=== PATIENT | female | born 1950 | race African-American/Black ===

== ENCOUNTER 2017-02-09 22:24 | Inpatient (IN) | payer MEDICARE, MEDICAID ==
[2017-02-09] MEDS ORDERED: Succinylcholine Chloride 20 MG/ML 10 ml SYRINGE FS ONE (22:33)
[2017-02-09] MEDS ORDERED: Midazolam HCl 2 mg/2 ml Vial ONE ×3 (22:47→23:09)
[2017-02-09] MEDS ORDERED: Norepinephrine 8 MG/0.9% NS 0 ML ONE (22:52)
[2017-02-09] MEDS ORDERED: Vecuronium 10 MG VIAL ONE (23:15)
--- NOTE | 2017-02-09 23:26 | RAD ---
PORTABLE CHEST: 02/09/17 HISTORY: Cough. Intubation. COMPARISON: 05/25/16 study. The patient is rotated on this exam. Endotracheal tube is at approximately the level of the clavicles . An NG tube is below the hemidiaphragm. Heart size is enlarged. Pulmonary vessels and perihilar kar ings appear increased. IMPRESSION: 1. Cardiomegaly with suggestion of some pulmonary edema change. 2. Endotracheal tube with the tip of the tube at approximately the level of the clavicles. The N G tube is below the hemidiaphragm. POS: [facility]
[2017-02-09 23:32] LABS: #Basophils 0.1 thou/uL (0.0-0.2); #Lymphocytes 1.6 thou/uL (1.20-3.40); #Monocytes 0.6 thou/uL (0.11-0.59); #Neutrophils 7.6 thou/uL (1.40-6.50); %Basophils 0.7 % (0.0-1.0); %Eosinophils 0.3 % (0.0-10.0); Hemoglobin 12.1 g/dL (12.0-16.0); Mean Corpuscular HGB CONC 29.7 g/dL (32.0-36.0); Mean Corpuscular Hemoglobin 26.2 pg (27.0-31.0); Mean Corpuscular Volume 88.3 fl (81.0-99.0); Mean Platelet Volume 11.7 fL (7.4-10.4); Platelet Count 85 thou/uL (130-400); RBC Distribution Width 16.9 % (11.5-14.5); White Blood Cell (WBC) Count 9.8 thou/uL (4.8-10.8)
[2017-02-09] MEDS ORDERED: Acetaminophen 650 MG Suppository ONE (23:32)
[2017-02-09] MEDS ORDERED: Propofol 1,000 MG/100 ML VIAL IV ONE (23:33)
[2017-02-09 23:36] LABS: Actual Bicarbonate (HCO3a) 19.7 mEq/L (22-26); Base Excess (BEa) -7.5 mEq/L (0 (+/-) 2.5); CO2 Tension 46.9 mmHg (35.0-45.0); Calcium, Ionized 1.1 mmol/L (1.12-1.30); Hematocrit-ABG 37.9 % (36.0-47.0); Hemoglobin (Hb) 12.1 g/dL (12.0-16.0); O2 Tension (PaO2) 71.3 mmHg (80.0-100.0)
[2017-02-09 23:39] LABS: ALV-art Gradient 230.075 (0-20); Analyzer IN Cardio ER; Puncture Site R RADIAL; pH, Arterial 7.24 (7.35-7.45)
[2017-02-09 23:40] LABS: Bilirubin Small (Negative); Blood, Urine Negative (Negative); Clarity CLOUDY (Clear); Glucose, Urine (Dipstick) Negative (Negative); Leukocyte Negative (Negative); Nitrite Negative (Negative); Protein, Urine (Dipstick) 300 mg/dL (Neg-Trace); Specific Gravity, Urine 1.027 (1.002-1.036); pH, Urine 5.5 (5.0-9.0)
[2017-02-09 23:44] LABS: Bacteria/HPF None Seen HPF (None Seen)
[2017-02-09 23:52] LABS: ALT (SGPT) 360 U/L (8-55); AST (SGOT) 794 U/L (5-34); Alkaline Phosphatase 97 U/L (40-150); Anion Gap 19 mmol/L (10-20); BUN (Urea Nitrogen) 42 mg/dL (9.8-20.1); Bilirubin, Total 0.4 mg/dL (0.2-1.2); Calc. Creatinine Clearance 0 mL/min (70-130); Calcium 8.1 mg/dL (7.8-10.44); Carbon Dioxide 18 mmol/L (23-31); Chloride 114 mmol/L (98-107); Estimated GFR-MDRD 14; Globulin 3.6 g/dL (2.4-3.5); Glucose 154 mg/dL (80-115); Potassium 4.5 mmol/L (3.5-5.1); Protein, Total 6.6 g/dL (6.0-8.3); Sodium 146 mmol/L (136-145)
[2017-02-09 23:53] LABS: Pathc Cast-AUWi Flag 14.36 (0-2.49)
[2017-02-09] MEDS ORDERED: Cefepime 2 GM/10 ML SYR ONE (23:58)
[2017-02-10] MEDS ORDERED: Cefepime 2 GM/10 ML SYR ONE
[2017-02-10 00:02] LABS: Hyaline Casts/LPF NONE SEEN LPF (0-3 Hyaline); Other Casts/LPF None Seen LPF (0-3 Hyaline); Oval Fat Bodies/HPF None Seen HPF (None Seen); Renal Epithelial 0-3 HPF (0-3); Sperm/HPF None Seen HPF (None Seen); Transitional Epithelial NONE SEEN HPF (0-3); Trichomonas/HPF None Seen HPF (None Seen); Yeast-All Forms None Seen HPF (None Seen)
[2017-02-10] MEDS ORDERED: Norepinephrine 8 MG/0.9% NS 250 ML ONE (01:11)
[2017-02-10] MEDS ORDERED: Propofol 1,000 MG/100 ML VIAL IV PRN (02:07)
[2017-02-10 02:12] LABS: Amphetamine Not Detected (NotDetected); Barbiturates Screen Not Detected (NotDetected); Benzodiazepine Screen Not Detected (NotDetected); Cocaine Metabolite Screen Not Detected (NotDetected); Medtox Control Line Valid? VALID (VALID); Medtox Reader # READER 1; Methadone Not Detected (NotDetected); Methamphetamine Not Detected (NotDetected); Opiate Screen Detected (NotDetected); Oxycodone Screen Not Detected (NotDetected); Phencyclidine (PCP) Not Detected (NotDetected); THC/Cannabinoid Screen Detected (NotDetected); Tricyclic Screen Not Detected (NotDetected)
[2017-02-10] MEDS ORDERED: Lactated Ringer's 1,000 ML IV SCH (02:15)
[2017-02-10] MEDS ORDERED: Ondansetron ODT 4 MG TAB PO PRN (03:11)
[2017-02-10] MEDS ORDERED: CCU Electrolyte Replacement 1 EACH FS SCH (03:11)
[2017-02-10] MEDS ORDERED: Sodium Chloride 0.9% 1,000 ML IV SCH ×3 (03:11→05:30)
[2017-02-10] MEDS ORDERED: Acetaminophen 650 MG Suppository PR PRN (03:11)
[2017-02-10] MEDS ORDERED: Ventilator Sedation Protocol 1 EACH FS SCH (03:11)
[2017-02-10] MEDS ORDERED: Ondansetron HCl/PF 4 MG/2 ML Vial IVP PRN (03:11)
[2017-02-10 03:25] LABS: Lactic Acid 1.8 mmol/L (0.5-2.2)
[2017-02-10] MEDS ORDERED: DISCONTINUE PREVIOUS NARCOTIC PAIN MEDICATIONS AND BENZODIAZEPINES FS SCH (03:26)
[2017-02-10] MEDS ORDERED: fentaNYL Citrate/PF 2,000 MCG in Sodium Chloride 0.9% 60 ML IV SCH (03:26)
[2017-02-10] MEDS ORDERED: Lorazepam 2 MG/ML VIAL SLOW IVP PRN (03:26)
[2017-02-10] MEDS ORDERED: CCU ELECTROLYTE REPLACEMENT PROTOCOL FS PRN (03:27)
[2017-02-10] MEDS ORDERED: Potassium Phosphate 9 MMOL in Sodium Chloride 0.9% 100 ML IVPB PRN (03:27)
[2017-02-10] MEDS ORDERED: Potassium Chloride 20 MEQ TAB PO PRN (03:27)
[2017-02-10] MEDS ORDERED: Potassium Chloride 40 MEQ in Sodium Chloride 0.9% 250 ML 250 ML IVPB PRN (03:27)
[2017-02-10] MEDS ORDERED: Potassium Chloride 40 MEQ in Premix Bag 1 BAG IVPB PRN (03:27)
[2017-02-10] MEDS ORDERED: Potassium Phosphate 15 MMOL in Sodium Chloride 0.9% 250 ML 250 ML IV PRN (03:27)
[2017-02-10] MEDS ORDERED: Magnesium Oxide 400 MG TAB PO PRN ×2 (03:27)
[2017-02-10] MEDS ORDERED: Potassium Phosphate 12 MMOL in Sodium Chloride 0.9% 250 ML 250 ML IV PRN (03:27)
[2017-02-10] MEDS ORDERED: Magnesium 2 GM/NS 0.9% 100 ML 2 GM in Premix Bag 1 BAG IVPB PRN (03:27)
[2017-02-10] MEDS ORDERED: RENALLY ADJUST ANTIBIOTICS IVPB PRN (03:30)
[2017-02-10] MEDS: Sodium Chloride 0.9% 1,000 ML IV SCH ×2 (03:30→09:20)
[2017-02-10] MEDS ORDERED: Morphine 2 MG/ML SYRINGE IVP PRN (04:45)
--- NOTE | 2017-02-10 05:32 | HP ---
DATE OF ADMISSION: 02/10/2017 PRIMARY CARE PROVIDER: Margo Coates MD CHIEF COMPLAINT: Unresponsive and found down. HISTORY OF PRESENT ILLNESS: This is a 66-year-old -[place] female who presented by EMS trans port after apparently being discovered found down in her home in [place], [place]. The history was obtai arcelia after discussions with the ER attending as well as review of electronic medical record from the e mergency room. Family members last had seen the patient well on 02/07/2017, but we were unable to co mmunicate with her over the next 24-48 hours by phone. The family members became concerned and had a ttempted to have a neighbor check on her at her house. The patient was unresponsive, at which point, EMS and police personnel arrived, breaking into the home, and finding the patient obtunded. The pat ient's initial temperature was documented 100.9 degrees Fahrenheit with glucose of 179. The patient was minimally responsive and slurring of speech. The patient was transferred to the emergency room f or further evaluation. Upon arrival in the emergency room, due to patient's severe altered state and unknown time course of being down, the patient underwent intubation with airway protection and place d on mechanical ventilation. The patient was also noted with severe hypotension and concern for seps is, it was entertained. The patient received aggressive IV fluid hydration in addition received IV n orepinephrine for stabilization. Patient also received intravenous fluids as well as IV antibiotic t herapy with cefepime and vancomycin. The patient was placed on propofol infusion after receiving vec uronium and 8 mg of Versed. PAST MEDICAL HISTORY: 1. Diabetes mellitus type 2. 2. Morbid obesity. 3. Gastroesophageal reflux disease. 4. Hypertension. 5. Question of congestive heart failure. 6. Anxiety disorder. 7. Bipolar disorder. 8. Depression. 9. Remote tobacco use. PAST SURGICAL HISTORY: Status post section. CURRENT MEDICATIONS: 1. Lyrica 75 mg p.o. b.i.d. 2. Amlodipine 5 mg one tab p.o. daily. 3. Lasix 40 mg 1 tab p.o. daily. 4. Trazodone 50 mg p.o. at bedtime. 5. Pravachol 40 mg p.o. daily. 6. Tradjenta 5 mg p.o. daily. 7. Cyclobenzaprine 5 mg p.o. q.8 hours p.r.n. 8. Carvedilol 6.25 mg p.o. daily. 9. Losartan 25 mg 1 tab p.o. daily. 10. Nexium 20 mg p.o. daily. ALLERGIES: PENICILLIN. FAMILY HISTORY: Positive for diabetes and hypertension. SOCIAL HISTORY: Patient resides in [facility]. Currently disabled and retired. Remote histo ry of tobacco use, none currently. No alcohol or illicit drug use. REVIEW OF SYSTEMS: Unobtainable as patient on current mechanical ventilation and obtunded. PHYSICAL EXAMINATION: VITAL SIGNS: Currently, blood pressure 91/42, pulse 80, respiratory rate 22, temperature 98 degrees Fahrenheit, O2 saturation 100% on mechanical ventilation. GENERAL APPEARANCE: This is a 66-year-old -[place]ian female, sedated on current mechanical don tilation. HEENT: Pupils are minimally reactive to light and accommodation. Extraocular muscles are intact. N o scleral icterus. No conjunctival injection. Nares patent. OP is clear with ET tube in place. NECK: Supple. No cervical adenopathy, no thyromegaly, no carotid bruits, no JVD appreciated. Cervi qian spine with full active and passive range of motion. CHEST: Diminished breath sounds in the bases bilaterally. CARDIOVASCULAR: S1, S2 with distant heart sounds. ABDOMEN: Obese, soft. Landmarks are difficult to palpate due to patient's body habitus. No rebound or guarding noted. EXTREMITIES: Warm and dry with fair turgor. Pitting edema to bilateral lower extremities. Pulses a re palpable distally at the dorsalis pedis, posterior tibial, and popliteal arteries bilaterally. Ca pillary refill less than 2 seconds. NEUROLOGIC: Lethargic, on current mechanical ventilation. PERTINENT LABORATORY AND X-RAY FINDINGS: Sodium 146, potassium 4.5, chloride 114, CO2 of 18, BUN 42, creatinine 3.93 with estimated GFR 14. Lactic acid level 2.5, calcium 8.0, AST 794, ALT 360, alkali ne phosphatase 97, albumin 3.0. CBC showed a white blood cell count 9.8, hemoglobin 12, hematocrit 4 1, platelet count 85,000 with 77% neutrophils. Urine drug screen dated 02/09/2017, positive for shoaib abinoids and opiates. Influenza A and B antigen dated 02/10/2017. Positive for influenza A antigen. Portable chest x-ray dated 02/09/2017, showed cardiomegaly with questionable pulmonary edema. Endo tracheal tube with tip of the tube approximately at the level of the clavicles noted. CT of the [place] dated 02/09/2017, showed no acute intracranial process. EKG dated 02/09/2017 by my interpretation shows sinus mechanism with heart rates in the 90s. Right bundle branch block pattern noted. Attenua cuong R waves noted in the precordial leads. Left axis deviation. Question of bifascicular block. ASSESSMENT AND PLAN: 1. Septic shock. Exact source is unclear. We will continue CCU admission. Continue aggressive IV fluid hydration, continue Levophed, titrating to maintain blood pressure with systolic greater than 9 0. Continue general sepsis protocol with serial lactate assessment. 2. Acute hypoxemic respiratory failure. We will continue mechanical ventilation with synchronized i ntermittent mechanical ventilation. Titrate to clinical response and wean off sedation as clinically tolerated. Continue general pulmonary supportive measures. 3. Febrile syndrome. Continue empiric broad-spectrum IV antibiotic therapy with cefepime and vancom ycin. Blood and urine cultures pending at time of this dictation. 4. Toxic/metabolic encephalopathy. Continue intravenous normal saline at 100 mL per hour. Continue general supportive measurements. 5. Acute kidney injury on chronic kidney disease, stage 3. We will continue intravenous fluids as o utlined previously. Avoid nephrotoxic agents and contrast media. Consider nephrology consultation i f creatinine trend does not improve in the next 24 hours. 6. Transaminitis. Suspect secondarily to sepsis. Repeat LFTs in the a.m. and monitor overall trend . 7. Hypernatremia. We will continue intravenous fluids and monitor with serial sodium evaluations. 8. Cannabis use. We will offer cessation resources prior to discharge. 9. Prophylaxis. Sequential compression devices while in bed. Pepcid 20 mg IV q.12 hours. 10. Code status is FULL. Surrogate medical decision maker is patient's son. TOTAL CRITICAL CARE TIME: Forty-two minutes.
[2017-02-10 05:48] LABS: ALT (SGPT) 414 U/L (8-55); AST (SGOT) 960 U/L (5-34); Albumin 2.8 g/dL (3.4-4.8); Alkaline Phosphatase 96 U/L (40-150); Anion Gap 15 mmol/L (10-20); BUN (Urea Nitrogen) 48 mg/dL (9.8-20.1); Bilirubin, Total 0.5 mg/dL (0.2-1.2); Calc. Creatinine Clearance 26 mL/min (70-130); Calcium 7.8 mg/dL (7.8-10.44); Carbon Dioxide 19 mmol/L (23-31); Chloride 114 mmol/L (98-107); Estimated GFR-MDRD 11; Globulin 3.2 g/dL (2.4-3.5); Glucose 287 mg/dL (80-115); Potassium 3.9 mmol/L (3.5-5.1); Sodium 144 mmol/L (136-145)
[2017-02-10 05:52] LABS: Band 7 % (5-11); Hemoglobin 11.6 g/dL (12.0-16.0); Lymphocytes 15 % (21-51); MDiff Complete? YES; Mean Corpuscular HGB CONC 29.8 g/dL (32.0-36.0); Mean Corpuscular Hemoglobin 26.2 pg (27.0-31.0); Mean Corpuscular Volume 87.9 fl (81.0-99.0); Mean Platelet Volume 12.2 fL (7.4-10.4); Metamyelocyte 2 % (0-0); Monocytes 1 % (0-10); Neutrophil 75 % (42-75); PLT Morphology Comment Appears Decreased; Platelet Count 78 thou/uL (130-400); RBC Distribution Width 16.8 % (11.5-14.5); Red Blood Cell (RBC) Count 4.45 mill/uL (4.20-5.40); White Blood Cell (WBC) Count 6.8 thou/uL (4.8-10.8)
--- NOTE | 2017-02-10 07:48 | CT ---
PRELIMINARY REPORT/[facility]/EMERGENCY AFTER HOURS PROCEDURE: EXAM: CT Head Without Intravenous Contrast EXAM DATE/TIME: Exam ordered 02/10/2017 12:14 AM CLINICAL HISTORY: 66 years old, female; Signs and symptoms; Other: Unresponsive; Patient HX: F66 found unresponsive in her home; Pt had urinated on herself. Ems was called by neighbors who had tried to check in on pt but couldn't get in touch with her. Unknown when last contact was made or when pt was last responsive. E ms reports pt was only responsive when they moved her into ambulance. Reports d-stick was 179 and tem p was 100.9. Pt has medical HX of HTN. Dm, and chf. TECHNIQUE: Axial computed tomography images of the head/brain without intravenous contrast. COMPARISON: No relevant prior studies available. FINDINGS: Brain: Mild generalized volume loss of the brain. No hemorrhage. No significant white matter disease. Ventricles: Unremarkable. No ventriculomegaly. Bones/joints: Unremarkable. No acute fracture. Soft tissues: Unremarkable. Sinuses: Fluid levels in the sphenoid sinus may signify sinusitis. Mastoid air cells: Unremarkable as visualized. No mastoid effusion. Orbits: Bilateral globe proptosis. No extraocular muscle thickening. IMPRESSION: 1. Fluid levels in the sphenoid sinus may signify sinusitis. 2. No acute brain findings. 3. Bilateral globe proptosis. No extraocular muscle thickening. Thank you for allowing us to participate in the care of your patient. Dictated and Authenticated by: Juan Terrazas MD 02/10/2017 12:35 AM Central Time ([place] & [place]) FINAL REPORT BRAIN CT WITHOUT IV CONTRAST: HISTORY: A 66-year-old female with altered mental status found unresponsive at home. COMPARISON: 05/25/2016 Emergency after-hours exam at 12:15 a.m. on 02/10/2017. No significant acute intracranial process. Oral tube is in place. Fluid within the ethmoid and sphe noid sinuses. Code QA/Agree with [facility]. POS: [facility]
[2017-02-10 08:03] LABS: Actual Bicarbonate (HCO3a) 17.1 mEq/L (22-26); CO2 Tension 37.4 mmHg (35.0-45.0); Calcium, Ionized 1.1 mmol/L (1.12-1.30); Hematocrit-ABG 34.2 % (36.0-47.0); Hemoglobin (Hb) 11.1 g/dL (12.0-16.0); O2 Tension (PaO2) 71.5 mmHg (80.0-100.0); pH, Arterial 7.28 (7.35-7.45)
[2017-02-10 08:04] LABS: Puncture Site LRA
[2017-02-10] MEDS ORDERED: FLU VACC TS2017-18 (>65YR) 0.5 ML SYRINGE IM ONE (09:00)
[2017-02-10] MEDS ORDERED: Prevnar 13-Val Conj/PF 0.5 ML SYRINGE IM ONE (09:00)
[2017-02-10] MEDS ORDERED: Famotidine/PF 20 mg/2ml Vial SLOW IVP SCH (09:00)
[2017-02-10] MEDS ORDERED: Cefepime 2 GM in Sodium Chloride 0.9% 100 ML IVPB SCH (09:00)
[2017-02-10] MEDS: Famotidine/PF 20 mg/2ml Vial SLOW IVP SCH (09:21)
[2017-02-10] MEDS: Propofol 1,000 MG/100 ML VIAL IV PRN (09:39)
[2017-02-10] MEDS: Norepinephrine 8 MG/0.9% NS 250 ML IVPB SCH ×2 (09:40→14:48)
[2017-02-10] MEDS ORDERED: Acetaminophen 650 MG in Premix Bag 1 BAG IVPB PRN (10:27)
[2017-02-10] MEDS ORDERED: Dextrose 50% Abboject 50 ML SYRINGE IVP PRN (10:37)
[2017-02-10] MEDS ORDERED: Dextrose 5% in Water 1,000 ML IV PRN (10:37)
--- NOTE | 2017-02-10 10:41 | RAD ---
PORTABLE CHEST ONE VIEW: 02/10/2017 5:07 a.m. HISTORY: Respiratory failure. FINDINGS: The patient is rotated. Line and tube placements are unchanged in position. The heart is enlarged. There is suggestion of a patchy opacity in the right mid lung. No definite pneumothoraces are seen. Small effusions maybe present. POS: [facility]
[2017-02-10] MEDS: Hydrocortisone Sod Succ/PF 100 mg/2 ml Vial IVP SCH ×3 (11:04→23:25)
[2017-02-10] MEDS: Insulin Regular 300 UNITS/3 ML VIAL SC PRN ×3 (11:35→21:02)
--- NOTE | 2017-02-10 13:03 | PDOC.EVN ---
Event Note - Event Note Event Note: Chart reviewed. Pt currently intubated, on sedation. Will follow.
--- NOTE | 2017-02-10 13:36 | OP ---
DATE OF PROCEDURE: 02/10/2017 PROCEDURE: Bronchoscopy. PREOPERATIVE DIAGNOSIS: Left lung atelectasis. POSTOPERATIVE DIAGNOSIS: Left lung atelectasis. ANESTHESIA: None - the patient was currently on propofol drip to mechanical ventilation. DESCRIPTION OF PROCEDURE: Informed consent was obtained from the family at bedside. An Olympus bronc hoscope was placed in the patient's endotracheal tube. She was on 100% oxygen during the procedure. She had tenacious secretions present in the left main stem bronchus extending beyond the left lower and left upper lobe. These were lavaged with normal saline and removed. She also had secretions pre sent in the right lower lobe which were removed. She tolerated the procedure well. There were no ot her endobronchial lesions identified.
[2017-02-10 13:42] LABS: Bilirubin Small (Negative); Blood, Urine Small (Negative); Glucose, Urine (Dipstick) Negative (Negative); Leukocyte Negative (Negative); Nitrite Negative (Negative); Protein, Urine (Dipstick) 100 mg/dL (Neg-Trace); Urobilinogen 0.2 mg/dL (0.2-1.0); pH, Urine 5.5 (5.0-9.0)
--- NOTE | 2017-02-10 13:43 | CON ---
DATE OF CONSULTATION: 02/10/2017 This is 45 minutes critical care time. CONSULTING PHYSICIAN: Dr. Sin from the Hospitalist Service. REASON FOR CONSULTATION: Acute respiratory failure. HISTORY OF PRESENT ILLNESS: Information was obtained from the family and from reading documentation in the chart. This is a 66-year-old -[place]onegas[place] female who was found down at home. She was las t heard from about 48 hours ago when she was complaining of feeling cold. She was found to be febril e and severe respiratory distress. She was intubated for airway protection. PAST MEDICAL HISTORY: 1. Diabetes mellitus type 2. 2. Morbid obesity. 3. Gastroesophageal reflux disease. 4. Hypertension. 5. Diastolic cardiac dysfunction. 6. Anxiety. 7. Bipolar disorder. 8. Depression. PAST SURGICAL HISTORY: . MEDICATIONS: Prior to admission, Lyrica 75 mg b.i.d., amlodipine 5 mg daily, Lasix 40 mg daily, traz odone 50 mg nightly, Pravachol 40 mg daily, Tradjenta 5 mg daily, cyclobenzaprine 5 mg every 8 hours as needed, carvedilol 6.25 mg daily, losartan 25 mg daily, Nexium 20 mg daily. ALLERGIES: PENICILLIN. FAMILY MEDICAL HISTORY: Remarkable for diabetes and hypertension. SOCIAL HISTORY: Disabled and retired. Does not smoke. Does not use illicit drugs. REVIEW OF SYSTEMS: Completely unobtainable because the patient is intubated and cannot give a histor y. PHYSICAL EXAMINATION: VITAL SIGNS: Temperature 101.3, pulse 77, blood pressure 92/55, O2 sat 100%. GENERAL: She is currently on Levophed drip at 15 mcg per minute. NEUROLOGIC: She coughs. She moves all 4 extremities. Cannot cooperative with commands. HEENT: Pupils react. Sclerae are anicteric. Oropharynx, endotracheal tube in place size 7. NECK: No JVD, or bruits. LUNGS: Coarse breath sounds bilaterally with harsh expiratory wheezing. CARDIOVASCULAR: S1, S2, slightly tachycardic. ABDOMEN: Soft, obese, nontender, nondistended. EXTREMITIES: Edematous. LABORATORY AND X-RAY FINDINGS: A pH 7.28, pCO2 of 37, pO2 of 71 on SIMV rate 20, tidal volume 500, P EEP 5, pressure support 10, FiO2 100%, this is consistent with a metabolic acidosis. White blood katerine l count 6.8, hematocrit 39.1, platelet count 78. Sodium 144, potassium 3.9, chloride 114, CO2 of 19, BUN 48, creatinine 4.6, glucose 287, AST 960, ALT 414. Cortisol 7.2. Chest x-ray was reviewed and shows atelectasis in the left lung, bilateral infiltrates. ASSESSMENT: 1. Septic shock. 2. Bilateral pneumonia. 3. Influenza type A. 4. Acute respiratory failure requiring mechanical ventilation secondary to pneumonia. 5. Acute renal failure with oliguric state. PLAN: 1. The patient underwent bronchoscopy for removal of mucus plugging in the left lung. 2. Broad spectrum IV antibiotics. 3. Continue mechanical ventilation - we will switch to bilevel mode. 4. Vasopressor support. 5. Bronchoscopy. 6. Nephrology consultation. The above encompassed 45 minutes critical care time.
[2017-02-10 13:47] LABS: Clarity Hazy (Clear)
[2017-02-10 13:58] LABS: Specific Gravity, Urine 1.025 (1.002-1.036)
[2017-02-10 13:59] LABS: RBC/HPF 0-3 HPF (0-3); Transitional Epithelial 0-3 HPF (0-3)
[2017-02-10 14:01] LABS: Bacteria/HPF 1+ HPF (None Seen)
[2017-02-10 14:02] LABS: Hyaline Casts/LPF 0-3 HYALINE CAST LPF (0-3 Hyaline)
[2017-02-10] MEDS: Cefepime 2 GM, Syringe 2.5 ML in Sterile Water 10 ML SLOW IVP SCH (20:58)
[2017-02-10] MEDS: Thiamine HCl 200 MG/2 ML VIAL SLOW IVP SCH (20:59)
--- NOTE | 2017-02-10 21:56 | CON ---
DATE OF CONSULTATION: 02/10/2017 CONSULTING PHYSICIAN: Dr. Pulliam. REASON FOR CONSULTATION: Acute kidney injury and oliguria. REASON FOR ADMISSION: Found down, unresponsive. HISTORY OF PRESENT ILLNESS: A 66-year-old -[place] female with history of type 2 diabetes, h ypertension, anxiety, bipolar disorder, depression, and substance abuse, was taken to the hospital af ter being found down. The patient was having no contact with her family and family were concerned an d on checking at her house, she was found down. She last talked to somebody 24-48 hours before that. The patient is currently intubated and seen in ICU. Niece and sister at the bedside. The patient is responding to verbal stimuli and with opening her eyes. She was not making any urine this morning . Nephrology is consulted. The patient had a creatinine of 4.6 this morning. She also had a mild fever and currently intubated and hypotensive, on pressors. PAST MEDICAL HISTORY: Positive for type 2 diabetes, morbid obesity, gastroesophageal reflux disease, hypertension, congestive heart failure, anxiety disorder, bipolar disorder, depression, substance ab use. PAST SURGICAL HISTORY: . HOME MEDICATIONS: Lyrica, amlodipine, Lasix, trazodone, Pravachol, Tradjenta, cyclobenzaprine, carve dilol, and losartan. ALLERGIES: PENICILLIN. SOCIAL HISTORY: History of positive for marijuana. No alcohol or tobacco use reported. Remote hist ory of tobacco use. FAMILY HISTORY: Positive for diabetes and hypertension. REVIEW OF SYSTEMS: Could not be obtained as she is intubated. PHYSICAL EXAMINATION: GENERAL: Morbidly obese female, seen in ICU and intubated. VITAL SIGNS: Temperature 101, pulse 83, respiratory rate 20, blood pressure 114/59. HEENT: Intubated. CARDIOVASCULAR: S1 and S2 heard. RESPIRATORY: Clear. GI: Abdomen is soft. MUSCULOSKELETAL: 1+ edema. DERMATOLOGIC: No skin rash. NEUROLOGIC: Alert, awake, and intubated. LABORATORY DATA: Hemoglobin is 11.6, platelets 78, potassium 3.9, BUN 48, creatinine is 4.6, GFR is 11, albumin is 2.8. ASSESSMENT AND PLAN: 1. Acute kidney injury, on chronic kidney disease secondary to sepsis, most likely acute tubular nec rosis. The patient is currently oliguric and anuric. No acute indication for dialysis, but if urine output does not improve in the next 24-48 hours, might need renal replacement. Continue supportive care, avoid nephrotoxins. Attempt to keep systolic more than 90 as possible. 2. Hypernatremia, better. 3. Hyperchloremia. 4. Metabolic acidosis. 5. Currently on the vent. 6. Acute hypoxic respiratory failure and septic shock. 7. Pneumonia. 8. Anxiety. 9. Elevated liver enzymes. 10. Hypoalbuminemia with moderate protein energy malnutrition. 11. Anemia, mild. 12. Edema. 13. History of hypertension. Currently, blood pressure control. 14. Continue close monitoring in the Critical Care monitoring and avoid nephrotoxins. MEDICATION LIST: Reviewed. Would continue antibiotics and supportive care. Will follow. No urgent indication for dialysis currently. Thank you for the consultation.
[2017-02-11] MEDS: Vancomycin HCl 750 MG in Sodium Chloride 0.9% 250 ML 250 ML IVPB SCH (00:42)
[2017-02-11] MEDS: Sodium Chloride 0.9% 1,000 ML IV SCH (01:23)
[2017-02-11] MEDS: Insulin Regular 300 UNITS/3 ML VIAL SC PRN ×5 (01:23→22:02)
[2017-02-11 04:35] LABS: Anion Gap 22 mmol/L (10-20); BUN (Urea Nitrogen) 57 mg/dL (9.8-20.1); Calc. Creatinine Clearance 22 mL/min (70-130); Calcium 7.2 mg/dL (7.8-10.44); Carbon Dioxide 11 mmol/L (23-31); Chloride 121 mmol/L (98-107); Estimated GFR-MDRD 9; Glucose 207 mg/dL (80-115); Potassium 4.1 mmol/L (3.5-5.1); Sodium 150 mmol/L (136-145)
[2017-02-11 04:46] LABS: Band 24 % (5-11); Burr Cells SLIGHT = 2-5 cells (100X) (0-1/hpf); Hemoglobin 10.5 g/dL (12.0-16.0); Lymphocytes 9 % (21-51); MDiff Complete? YES; Mean Corpuscular HGB CONC 30.2 g/dL (32.0-36.0); Mean Corpuscular Hemoglobin 26.2 pg (27.0-31.0); Mean Corpuscular Volume 86.5 fl (81.0-99.0); Mean Platelet Volume 8.7 fL (7.4-10.4); Metamyelocyte 5 % (0-0); Monocytes 2 % (0-10); Neutrophil 60 % (42-75); PLT Morphology Comment Appears Decreased; Platelet Count 54 thou/uL (130-400); RBC Distribution Width 16.7 % (11.5-14.5); Red Blood Cell (RBC) Count 4.01 mill/uL (4.20-5.40); White Blood Cell (WBC) Count 5.8 thou/uL (4.8-10.8)
[2017-02-11] MEDS: Hydrocortisone Sod Succ/PF 100 mg/2 ml Vial IVP SCH ×3 (05:28→18:16)
[2017-02-11 07:46] LABS: Actual Bicarbonate (HCO3a) 11.4 mEq/L (22-26); Base Excess (BEa) -11.5 mEq/L (0 (+/-) 2.5); Calcium, Ionized 1.1 mmol/L (1.12-1.30); Hematocrit-ABG 31.4 % (36.0-47.0); Hemoglobin (Hb) 11.1 g/dL (12.0-16.0); O2 Tension (PaO2) 164.4 mmHg (80.0-100.0); pH, Arterial 7.39 (7.35-7.45)
[2017-02-11 07:50] LABS: ALV-art Gradient 239.275 (0-20); CO2 Tension 19.3 mmHg (35.0-45.0); Puncture Site RR
--- NOTE | 2017-02-11 07:51 | PDOC.PULCC ---
CCU Progress Note: Subj/Obj - Subjective Date: 02/11/17 Time: 07:50 Subjective: She will awaken and follow commands. Appears very scared - Objective Allergies/Adverse Reactions: Allergies Allergy/AdvReac Type Severity Reaction Status Date / Time Penicillins Allergy Mild Verified 09/13/12 23:25 Medications: Current Medications Acetaminophen (Tylenol) 650 mg GA Q4H PRN PRN Reason: Headache/Fever or Mild Pain Dextrose/Water (Dextrose 50%) 25 gm IVP PRN PRN PRN Reason: HYPOGLYCEMIA PROTOCOL Famotidine (Pepcid) 20 mg SLOW IVP DAILY [facility] Last Admin: 02/10/17 09:21 Dose: 20 mg Glucagon (Glucagon) 1 mg IM PRN PRN PRN Reason: HYPOGLYCEMIA PROTOCOL Hydrocortisone Sodium Succinate (Solu-Cortef) 100 mg IVP Q6HR [facility]IEL Last Admin: 02/11/17 05:28 Dose: 100 mg Norepinephrine Bitartrate (Levophed) 250 mls @ 0 mls/hr IVPB INF MARIEL; Titrate PRN Reason: Protocol Last Admin: 02/10/17 14:48 Dose: 250 mls Vancomycin HCl 750 mg/ Sodium (Chloride) 250 mls @ 250 mls/hr IVPB 0100 [facility] Last Admin: 02/11/17 00:42 Dose: 250 mls Cefepime HCl 2 gm/ Syringe 2.5 (ml/ Sterile Water) 12.5 mls @ 150 mls/hr SLOW IVP 2100 [facility] Last Admin: 02/10/17 20:58 Dose: 12.5 mls Fentanyl Citrate 2,000 mcg/ (Sodium Chloride) 100 mls @ 0 mls/hr IV INF MARIEL; Per Protocol PRN Reason: Protocol Stop: 03/12/17 03:26 Fentanyl Citrate (Fentanyl Bolus) 250 mls @ 0 mls/hr IVPB PRN PRN; As Directed PRN Reason: Breakthrough pain Stop: 03/12/17 03:26 Ascorbic Acid 1,500 mg/ Sodium (Chloride) 53 mls @ 100 mls/hr IVPB Q6HR MARIEL Stop: 02/14/17 12:01 Last Admin: 02/11/17 05:28 Dose: 53 mls Acetaminophen 650 mg/ Device 65 mls @ 400 mls/hr IVPB Q6H PRN PRN Reason: Fever > 101 Stop: 02/11/17 10:28 Last Admin: 12/29/17 11:03 Dose: 65 mls Dextrose/Water (D5w) 1,000 mls @ 0 mls/hr IV INF PRN; As Directed PRN Reason: HYPOGLYCEMIA PROTOCOL Sodium Bicarbonate 150 meq/ (Dextrose/Water) 1,150 mls @ 100 mls/hr IV 0800 [facility] Stop: 02/11/17 19:29 Insulin Human Regular (Humulin R) 0 units SC .MODERATE SLIDING SC PRN; Protocol PRN Reason: MODERATE SLIDING SCALE Last Admin: 02/11/17 05:35 Dose: 2 unit Lorazepam (Ativan) 2 mg SLOW IVP Q2H PRN PRN Reason: Anxiety to achieve Gaines 2-3 Stop: 03/12/17 03:26 Miscellaneous Medication (Ventilator Sedation Protocol) 1 each FS ONE [facility] Stop: 03/12/17 03:12 Miscellaneous Medication (Pharmacy To Dose) 1 each IVPB PRN PRN PRN Reason: Pharmacy to dose Morphine Sulfate (Morphine) 2 mg IVP Q2H PRN PRN Reason: Breakthrough pain Stop: 03/12/17 03:26 Ondansetron HCl (Zofran Odt) 4 mg PO Q6H PRN PRN Reason: Nausea/Vomiting Ondansetron HCl (Zofran) 4 mg IVP Q6H PRN PRN Reason: Nausea/Vomiting Propofol (Diprivan) 1,000 mg IV INF PRN; Protocol PRN Reason: TO ACHIEVE GAINES SCORE 2-3 Stop: 03/12/17 03:26 Last Admin: 02/10/17 09:39 Dose: 1,000 mg Sodium Chloride (Flush - Normal Saline) 10 ml IVF Q12HR [facility] Last Admin: 02/10/17 21:03 Dose: 10 ml Sodium Chloride (Flush - Normal Saline) 10 ml IVF PRN PRN PRN Reason: Saline Flush Thiamine HCl (Thiamine Hcl) 200 mg SLOW IVP Q12HR [facility] Stop: 02/14/17 09:01 Last Admin: 02/10/17 20:59 Dose: 200 mg MAR Reviewed: Yes Vital Signs and I&O: Vital Signs Temp 100.4 F H 02/11/17 05:00 Pulse 67 02/11/17 03:17 Resp 23 H 02/11/17 05:49 BP 170/94 H 02/10/17 15:23 Pulse Ox 100 02/10/17 20:00 Intake & Output 02/10/17 02/11/17 02/11/17 18:59 06:59 18:59 Intake Total 1622 1556 Output Total 220 375 Balance 1402 1181 Weight 306 lb 7.08 oz Intake: Intake, IV Amount 1622 1556 Acetaminophen 650 mg In 100 Premix Bag 1 bag @ 400 mls/hr IVPB Q6H PRN Rx#: [id number] Norepinephrine 8 MG/0.9% 379 106 NS 250 ml @ Titrate IVPB INF MARIEL Rx#:[id number] Sodium Chloride 0.9% 1, 1143 1200 000 ml @ 100 mls/hr IV . Q10H MARIEL Rx#:[id number] Vancomycin HCl 750 mg In 250 Sodium Chloride 0.9% 250 ML 250 ml @ 250 mls/hr IVPB 0100 MARIEL Rx#: [id number] Output: Gastric Drainage 200 Output, Ramos 20 375 Other: Voiding Method Indwelling Catheter Indwelling Catheter # Bowel Movements 1 Vent Setting: Bilevel / 60% Spontaneous Breathing Test: not done CCU Progress Note: Exam - Physical Exam Constitutional: NAD HEENT: PERRLA, sclera anicteric Neck: no nodes, no JVD Cardiovascular: RRR, no significant murmur Focused Respiratory Location: rales: Right, Left Deviation from normal: AB.38/19/164, cxr better on left (I reviewed film) Gastrointestinal: soft, non-tender Musculoskeletal: edema present Neurological: moves all 4 limbs Lymphatic: no nodes Deviation from normal: sedated Skin: no rash - Labs Result Diagrams: 02/11/17 03:50 02/11/17 03:50 Lab results: Laboratory Results - last 24 hr 02/10/17 02/10/17 02/10/17 07:50 11:11 13:15 WBC RBC Hgb Hct MCV MCH MCHC RDW Plt Count MPV Neutrophils % (Manual) Band Neuts % (Manual) Lymphocytes % (Manual) Monocytes % (Manual) Metamyelocytes % (Man) Plt Morphology Comment Patrick Cells Specimen Type ARTERIAL Puncture Site LRA Bicarbonate Actual 17.1 L ABG pH 7.28 L ABG pCO2 37.4 ABG pO2 71.5 L ABG O2 Sat Calc/Mario 94.0 ABG O2 Content 14.5 L ABG Base Excess -9.0 L ABG Hematocrit 34.2 L ABG Hemoglobin 11.1 L ABG Oxyhemoglobin 92.8 L ABG Carboxyhemoglobin 0.8 ABG Methemoglobin 0.6 ABG Deoxyhemoglobin 5.9 H Lopez Test POSITIVE A-a O2 Gradient 600.750 H Sodium 146 Potassium 3.7 Chloride 112 H Ionized Calcium 1.1 L Mode of Support SIMV.PSV Mechanical Rate 20 Inspired O2 100 Tidal Volume 500 Pressure Support 10 PEEP or CPAP 5.0 Carbon Dioxide Anion Gap BUN Creatinine Estimated GFR (MDRD) Glucose POC Glucose 207 H Calcium Urine Color Joy Urine Clarity Hazy Urine pH 5.5 Ur Specific [place] 1.025 Urine Protein 100 H Urine Glucose (UA) Negative Urine Ketones Trace H Urine Blood Small H Urine Nitrite Negative Urine Bilirubin Small H Urine Urobilinogen 0.2 Ur Leukocyte Esterase Negative Urine RBC 0-3 Urine WBC 11-20 H Ur Squamous Epith Cells 4-6 H Ur Transition Epith Cell 0-3 Ur Renal Epithelial Cell 4-6 H Urine Crystals 1+ CA OXALATE Urine Bacteria 1+ H Hyaline Casts 0-3 HYALINE CAST 02/10/17 02/10/17 02/11/17 18:27 21:03 01:23 WBC RBC Hgb Hct MCV MCH MCHC RDW Plt Count MPV Neutrophils % (Manual) Band Neuts % (Manual) Lymphocytes % (Manual) Monocytes % (Manual) Metamyelocytes % (Man) Plt Morphology Comment Patrick Cells Specimen Type Puncture Site Bicarbonate Actual ABG pH ABG pCO2 ABG pO2 ABG O2 Sat Calc/Mario ABG O2 Content ABG Base Excess ABG Hematocrit ABG Hemoglobin ABG Oxyhemoglobin ABG Carboxyhemoglobin ABG Methemoglobin ABG Deoxyhemoglobin Lopez Test A-a O2 Gradient Sodium Potassium Chloride Ionized Calcium Mode of Support Mechanical Rate Inspired O2 Tidal Volume Pressure Support PEEP or CPAP Carbon Dioxide Anion Gap BUN Creatinine Estimated GFR (MDRD) Glucose POC Glucose 219 H 252 H 232 H Calcium Urine Color Urine Clarity Urine pH Ur Specific [place] Urine Protein Urine Glucose (UA) Urine Ketones Urine Blood Urine Nitrite Urine Bilirubin Urine Urobilinogen Ur Leukocyte Esterase Urine RBC Urine WBC Ur Squamous Epith Cells Ur Transition Epith Cell Ur Renal Epithelial Cell Urine Crystals Urine Bacteria Hyaline Casts 02/11/17 02/11/17 02/11/17 03:50 03:50 05:35 WBC 5.8 RBC 4.01 L Hgb 10.5 L Hct 34.7 L MCV 86.5 MCH 26.2 L MCHC 30.2 L RDW 16.7 H Plt Count 54 L MPV 8.7 Neutrophils % (Manual) 60 Band Neuts % (Manual) 24 H Lymphocytes % (Manual) 9 L Monocytes % (Manual) 2 Metamyelocytes % (Man) 5 H Plt Morphology Comment Appears Decreased L [place] Cells SLIGHT = 2-5 cells Specimen Type Puncture Site Bicarbonate Actual ABG pH ABG pCO2 ABG pO2 ABG O2 Sat Calc/Mario ABG O2 Content ABG Base Excess ABG Hematocrit ABG Hemoglobin ABG Oxyhemoglobin ABG Carboxyhemoglobin ABG Methemoglobin ABG Deoxyhemoglobin Lopez Test A-a O2 Gradient Sodium 150 H Potassium 4.1 Chloride 121 H Ionized Calcium Mode of Support Mechanical Rate Inspired O2 Tidal Volume Pressure Support PEEP or CPAP Carbon Dioxide 11 L Anion Gap 22 H BUN 57 H Creatinine 5.50 H Estimated GFR (MDRD) 9 Glucose 207 H POC Glucose 189 H Calcium 7.2 L Urine Color Urine Clarity Urine pH Ur Specific [place] Urine Protein Urine Glucose (UA) Urine Ketones Urine Blood Urine Nitrite Urine Bilirubin Urine Urobilinogen Ur Leukocyte Esterase Urine RBC Urine WBC Ur Squamous Epith Cells Ur Transition Epith Cell Ur Renal Epithelial Cell Urine Crystals Urine Bacteria Hyaline Casts CCU Progress Note: A/P - Time Spent with Patient Time: 50% of the time was spent in coordination of care (as documented) at patient's floor/unit and/or counseling patient. - Plan Plan: Acute hypoxic / hypercapnic resp failure -better Acute renal failure - better Influenza A Septic shock - off vasopressors now Bilateral pneumonia Plan: decrease RR on vent add BP meds add free water TF ABX, steroids, nebs
[2017-02-11] MEDS ORDERED: Sodium Bicarbonate 150 MEQ in Dextrose 5% in Water 1,000 ML IV SCH ×4 (08:00→19:30)
[2017-02-11] MEDS: Famotidine/PF 20 mg/2ml Vial SLOW IVP SCH (08:15)
[2017-02-11] MEDS: Thiamine HCl 200 MG/2 ML VIAL SLOW IVP SCH ×2 (08:15→21:46)
--- NOTE | 2017-02-11 08:56 | RAD ---
PORTABLE CHEST ONE VIEW: 02/11/2017 3:56 a.m. HISTORY: Respiratory failure. FINDINGS: Line and tube placements remain in place. The heart is enlarged. There are patchy opacities in the mid lung tirado on either side. No pneumothoraces or large effusions are seen. POS: [facility]
[2017-02-11] MEDS: NPH, Human Insulin Isophane 300 UNIT/3 ML VIAL SC SCH ×2 (09:03→21:45)
[2017-02-11] MEDS ORDERED: guaiFENesin 200 MG TAB PO PRN (11:14)
[2017-02-11] MEDS ORDERED: hydrALAZINE 20 MG/ML VIAL SLOW IVP PRN (11:15)
[2017-02-11] MEDS: Propofol 1,000 MG/100 ML VIAL IV PRN ×2 (13:21→21:44)
--- NOTE | 2017-02-11 14:02 | PDOC.PN ---
- Subjective Encounter Start Date: 02/11/17 Encounter Start Time: 10:00 Pt seen for followup re: pneumonia. Intubated, unable to complete ROS. Startled at voice. - Objective Resuscitation Status: Resuscitation Status FULL:Full Resuscitation MAR Reviewed: Yes Vital Signs & Weight: Vital Signs (12 hours) Temp Pulse Resp BP Pulse Ox 02/11/17 12:22 72 177/90 H 02/11/17 12:00 29 H 02/11/17 10:14 75 160/79 H 02/11/17 10:00 19 02/11/17 09:00 99.0 F 02/11/17 08:38 66 134/63 02/11/17 08:00 99.0 F 75 16 97 02/11/17 05:49 23 H 02/11/17 05:00 100.4 F H 02/11/17 04:00 23 H 02/11/17 03:17 67 Weight Admit Weight 306 lb Weight 306 lb 7.08 oz Most Recent Monitor Data Heart Rate from ECG 69 NIBP 193/93 NIBP BP-Mean 137 Respiration from ECG 20 SpO2 98 I&O: 02/10/17 02/11/17 02/12/17 06:59 06:59 06:59 Intake Total 3178 Output Total 335 595 190 Balance -335 2583 -190 Result Diagrams: 02/11/17 03:50 02/11/17 03:50 Additional Labs: Accuchecks 02/11/17 02/11/17 02/10/17 05:35 01:23 21:03 POC Glucose 189 H 232 H 252 H 02/10/17 02/10/17 18:27 11:11 POC Glucose 219 H 207 H EKG Reviewed by me: Yes (Tele: NSR) Phys Exam - Physical Examination Morbidly obese HEENT: moist MMs ETT Neck: no nodes Noé crackles Cardiovascular: RRR Gastrointestinal: soft, positive bowel sounds Neurological: moves all 4 limbs Psychiatric: normal affect Dx/Plan (1) Pneumonia Code(s): J18.9 - PNEUMONIA, UNSPECIFIED ORGANISM Status: Acute (2) Influenza A Code(s): J10.1 - FLU DUE TO OTH IDENT INFLUENZA VIRUS W OTH RESP MANIFEST Status: Acute (3) Acute respiratory failure with hypoxia and hypercapnia Code(s): J96.01 - ACUTE RESPIRATORY FAILURE WITH HYPOXIA; J96.02 - ACUTE RESPIRATORY FAILURE WITH HYPERCAPNIA Status: Acute (4) Sepsis Code(s): A41.9 - SEPSIS, UNSPECIFIED ORGANISM Status: Acute (5) Acute kidney failure Status: Acute Qualifiers: Acute renal failure type: unspecified Qualified Code(s): N17.9 - Acute kidney failure, unspecified (6) Bipolar 1 disorder Code(s): F31.9 - BIPOLAR DISORDER, UNSPECIFIED Status: Chronic (7) DM (diabetes mellitus), type 2, uncontrolled Code(s): E11.65 - TYPE 2 DIABETES MELLITUS WITH HYPERGLYCEMIA Status: Chronic Qualifiers: Diabetes mellitus complication status: with kidney complications (8) HTN (hypertension) Code(s): I10 - ESSENTIAL (PRIMARY) HYPERTENSION Status: Chronic Qualifiers: Hypertension type: essential hypertension Qualified Code(s): I10 - Essential (primary) hypertension - Plan respiratory therapy, DVT proph w/SCDs * . Off of pressors today. Continue IV antibiotics as below. Continue Tamiflu. Cr worse today, nephrology following. Continue accuchecks, insulin sliding scale. recheck LFTs. Review of Systems - Medications/Allergies Allergies/Adverse Reactions: Allergies Allergy/AdvReac Type Severity Reaction Status Date / Time Penicillins Allergy Mild Verified 09/13/12 23:25 Medications: Current Medications Acetaminophen (Tylenol) 650 mg NV Q4H PRN PRN Reason: Headache/Fever or Mild Pain Dextrose/Water (Dextrose 50%) 25 gm IVP PRN PRN PRN Reason: HYPOGLYCEMIA PROTOCOL Famotidine (Pepcid) 20 mg SLOW IVP DAILY [facility] Last Admin: 02/11/17 08:15 Dose: 20 mg Glucagon (Glucagon) 1 mg IM PRN PRN PRN Reason: HYPOGLYCEMIA PROTOCOL Guaifenesin (Organ-I Nr) 400 mg PO Q4H PRN PRN Reason: Cough Hydralazine HCl (Apresoline) 10 mg SLOW IVP Q6H PRN PRN Reason: SBP Greater Than 170 Last Admin: 02/11/17 13:15 Dose: 10 mg Hydrocortisone Sodium Succinate (Solu-Cortef) 100 mg IVP Q6HR [facility] Last Admin: 02/11/17 13:15 Dose: 100 mg Vancomycin HCl 750 mg/ Sodium (Chloride) 250 mls @ 250 mls/hr IVPB 0100 [facility] Last Admin: 02/11/17 00:42 Dose: 250 mls Cefepime HCl 2 gm/ Syringe 2.5 (ml/ Sterile Water) 12.5 mls @ 150 mls/hr SLOW IVP 2100 [facility] Last Admin: 02/10/17 20:58 Dose: 12.5 mls Fentanyl Citrate 2,000 mcg/ (Sodium Chloride) 100 mls @ 0 mls/hr IV INF MARIEL; Per Protocol PRN Reason: Protocol Stop: 03/12/17 03:26 Fentanyl Citrate (Fentanyl Bolus) 250 mls @ 0 mls/hr IVPB PRN PRN; As Directed PRN Reason: Breakthrough pain Stop: 03/12/17 03:26 Ascorbic Acid 1,500 mg/ Sodium (Chloride) 53 mls @ 100 mls/hr IVPB Q6HR [facility] Stop: 02/14/17 12:01 Last Admin: 02/11/17 13:25 Dose: 53 mls Dextrose/Water (D5w) 1,000 mls @ 0 mls/hr IV INF PRN; As Directed PRN Reason: HYPOGLYCEMIA PROTOCOL Sodium Bicarbonate 150 meq/ (Dextrose/Water) 1,150 mls @ 100 mls/hr IV 0800 [facility] Stop: 02/11/17 19:29 Last Admin: 02/11/17 08:16 Dose: 1,150 mls Insulin Human NPH (Humulin N) 20 unit SC Q12HR [facility] Last Admin: 02/11/17 09:03 Dose: 20 unit Insulin Human Regular (Humulin R) 0 units SC .MODERATE SLIDING SC PRN; Protocol PRN Reason: MODERATE SLIDING SCALE Last Admin: 02/11/17 13:31 Dose: 6 unit Lorazepam (Ativan) 2 mg SLOW IVP Q2H PRN PRN Reason: Anxiety to achieve Gaines 2-3 Stop: 03/12/17 03:26 Miscellaneous Medication (Ventilator Sedation Protocol) 1 each FS ONE [facility] Stop: 03/12/17 03:12 Miscellaneous Medication (Pharmacy To Dose) 1 each IVPB PRN PRN PRN Reason: Pharmacy to dose Morphine Sulfate (Morphine) 2 mg IVP Q2H PRN PRN Reason: Breakthrough pain Stop: 03/12/17 03:26 Ondansetron HCl (Zofran Odt) 4 mg PO Q6H PRN PRN Reason: Nausea/Vomiting Ondansetron HCl (Zofran) 4 mg IVP Q6H PRN PRN Reason: Nausea/Vomiting Propofol (Diprivan) 1,000 mg IV INF PRN; Protocol PRN Reason: TO ACHIEVE GAINES SCORE 2-3 Stop: 03/12/17 03:26 Last Admin: 02/11/17 13:21 Dose: 1,000 mg Sodium Chloride (Flush - Normal Saline) 10 ml IVF Q12HR [facility] Last Admin: 02/11/17 08:15 Dose: 10 ml Sodium Chloride (Flush - Normal Saline) 10 ml IVF PRN PRN PRN Reason: Saline Flush Thiamine HCl (Thiamine Hcl) 200 mg SLOW IVP Q12HR [facility] Stop: 02/14/17 09:01 Last Admin: 02/11/17 08:15 Dose: 200 mg
--- NOTE | 2017-02-11 18:42 | PRG ---
DATE OF SERVICE: 02/11/2017 SUBJECTIVE: The patient was seen and examined in ICU and intubated and opens her eyes to verbal stim janel, making more urine than yesterday. Vital signs have been stable. OBJECTIVE: GENERAL: This is a morbidly obese -Emirati female, who is in ICU and intubated. VITAL SIGNS: Temperature 98.3, pulse 72, respiratory rate 20, blood pressure 168/80. HEENT: Intubated. CARDIOVASCULAR: S1, S2 heard. Rate and rhythm regular. RESPIRATORY: Clear. GASTROINTESTINAL: Abdomen is soft. MUSCULOSKELETAL: 1+ edema. DERMATOLOGIC: No skin rash. NEUROLOGIC: Intubated, but is following verbal stimuli. LABORATORY DATA: Hemoglobin is 10.5, potassium is 4.1, sodium is 150, BUN is 57, creatinine is 5.5. ASSESSMENT AND PLAN: 1. Acute kidney injury, most likely secondary to acute tubular necrosis and sepsis. Continue suppor tive care. Renal function is worse, but seems like urine output is improving, which is a positive si gn and we will continue to monitor. Now he comes in indication for dialysis. 2. Sepsis with septic shock. Blood pressure is better. 3. Hypernatremia. Monitor. 4. Metabolic acidosis. We will add bicarbonate to the fluids today and monitor. 5. Hyperchloremia. 6. Acute hypoxic respiratory failure. 7. Pneumonia. 8. Anxiety. 9. Hypoalbuminemia. 10. Anemia. 11. History of hypertension. PLAN: Continue close monitoring in ICU. Continue supportive care, avoid nephrotoxins. Free water a s tolerated. We will add bicarbonate to IV fluids today and we will follow. No urgent indication fo r dialysis.
[2017-02-11] MEDS ORDERED: Propofol 1,000 MG/100 ML VIAL IV ONE (21:37)
[2017-02-11] MEDS ORDERED: Diprivan 0 ML ONE (21:37)
[2017-02-11] MEDS: Cefepime 2 GM, Syringe 2.5 ML in Sterile Water 10 ML SLOW IVP SCH (21:44)
[2017-02-12] MEDS: Hydrocortisone Sod Succ/PF 100 mg/2 ml Vial IVP SCH ×3 (00:02→20:10)
[2017-02-12] MEDS: Vancomycin HCl 750 MG in Sodium Chloride 0.9% 250 ML 250 ML IVPB SCH (00:06)
[2017-02-12 00:29] LABS: Vancomycin, Trough 14.3 ug/mL
[2017-02-12] MEDS: Propofol 1,000 MG/100 ML VIAL IV PRN ×6 (01:54→23:39)
[2017-02-12] MEDS: Insulin Regular 300 UNITS/3 ML VIAL SC PRN ×4 (04:18→22:23)
[2017-02-12 04:53] LABS: #Basophils 0.1 thou/uL (0.0-0.2); #Lymphocytes 0.3 thou/uL (1.20-3.40); #Monocytes 0.3 thou/uL (0.11-0.59); #Neutrophils 3.9 thou/uL (1.40-6.50); %Basophils 1.6 % (0.0-1.0); %Eosinophils 0.2 % (0.0-10.0); %Lymphocytes 6.8 % (21.0-51.0); %Neutrophils 84.4 % (42.0-75.0); Hemoglobin 10.5 g/dL (12.0-16.0); Mean Corpuscular Hemoglobin 27.1 pg (27.0-31.0); Mean Corpuscular Volume 84.9 fl (81.0-99.0); Platelet Count 45 thou/uL (130-400); RBC Distribution Width 16.9 % (11.5-14.5); Red Blood Cell (RBC) Count 3.86 mill/uL (4.20-5.40); White Blood Cell (WBC) Count 4.6 thou/uL (4.8-10.8)
[2017-02-12 05:05] LABS: Anion Gap 18 mmol/L (10-20); BUN (Urea Nitrogen) 70 mg/dL (9.8-20.1); Calc. Creatinine Clearance 24 mL/min (70-130); Calcium 7.4 mg/dL (7.8-10.44); Carbon Dioxide 17 mmol/L (23-31); Chloride 114 mmol/L (98-107); Estimated GFR-MDRD 10; Glucose 449 mg/dL (80-115); Potassium 3.4 mmol/L (3.5-5.1); Sodium 146 mmol/L (136-145)
[2017-02-12 05:06] LABS: ALT (SGPT) 341 U/L (8-55); AST (SGOT) 422 U/L (5-34); Albumin 2.3 g/dL (3.4-4.8); Alkaline Phosphatase 90 U/L (40-150); Bilirubin, Direct 0.2 mg/dL (0.1-0.3); Bilirubin, Total 0.3 mg/dL (0.2-1.2); Protein, Total 5.5 g/dL (6.0-8.3)
[2017-02-12] MEDS ORDERED: Sodium Chloride 0.9% 1,000 ML IV SCH (07:00)
[2017-02-12 07:25] LABS: Actual Bicarbonate (HCO3a) 18.7 mEq/L (22-26); Base Excess (BEa) -6.2 mEq/L (0 (+/-) 2.5); CO2 Tension 34.4 mmHg (35.0-45.0); Hematocrit-ABG 30.3 % (36.0-47.0); O2 Tension (PaO2) 69.5 mmHg (80.0-100.0); pH, Arterial 7.35 (7.35-7.45)
[2017-02-12 07:26] LABS: Puncture Site LR
[2017-02-12] MEDS: Thiamine HCl 200 MG/2 ML VIAL SLOW IVP SCH ×2 (08:19→20:10)
[2017-02-12] MEDS: Famotidine/PF 20 mg/2ml Vial SLOW IVP SCH (08:19)
[2017-02-12] MEDS: NPH, Human Insulin Isophane 300 UNIT/3 ML VIAL SC SCH ×2 (08:20→21:13)
--- NOTE | 2017-02-12 08:51 | RAD ---
PORTABLE CHEST 1 VIEW: DATE: . TIME: 4:55 a.m. HISTORY: Respiratory failure. FINDINGS: Comparison is made with the exam of the previous day. There is a suggestion of new airspace disease in the right lung base. The remainder of the exam is otherwise stable. POS: [facility]
[2017-02-12] MEDS ORDERED: Potassium Chloride 40 MEQ in Premix Bag 1 BAG IVPB SCH (09:30)
[2017-02-12] MEDS ORDERED: NPH, Human Insulin Isophane 300 UNIT/3 ML VIAL SC SCH (10:00)
--- NOTE | 2017-02-12 11:19 | PRG ---
DATE OF SERVICE: 02/12/2017 This is 35 minutes critical care time. SUBJECTIVE: The patient remains intubated on mechanical ventilation. She will follow some commands for me. PHYSICAL EXAMINATION: VITAL SIGNS: Temperature is 97.7, pulse 73, blood pressure 161/91. 24-hour intake 3398, output 885. NEUROLOGICAL: Will follow some commands. HEENT: Pupils react. Sclerae are anicteric. Oropharynx clear. NECK: No JVD. LUNGS: Coarse rhonchi bilaterally. CARDIOVASCULAR: S1 and S2, regular. ABDOMEN: Soft, obese, nontender, nondistended. EXTREMITIES: Generalized edema throughout. LABORATORY DATA: PH 7.35, pCO2 of 34, pO2 of 70 on bilevel 26/9 with an FiO2 of 40%. White blood ce ll count 4.6, hemoglobin 10, hematocrit 32.7, platelet count 45. Sodium 146, down from 150. Potassi um 3.4, chloride 114, CO2 of 17, BUN 70, creatinine 5.0, which is down from 5.5, glucose 449, AST 422 , ALT 341. Cultures demonstrate no new growth to date. Chest x-ray shows bilateral infiltrates. ASSESSMENT: 1. Acute respiratory failure requiring mechanical ventilation. 2. Influenza A. 3. Bilateral pneumonia. 4. Hyperglycemia. 5. Acute renal failure which is improving. 6. Septic shock, has been weaned off all vasopressors. PLAN: 1. Switch to SIMV volume mode as her oxygenation is getting better. 2. Continue tube feeds. 3. Continue IV antibiotics. 4. Decrease steroid dose as this is probably leading to most of her hyperglycemia.
[2017-02-12] MEDS: Sodium Chloride 0.45% 1,000 ML IV SCH (11:30)
[2017-02-12 13:03] LABS: Anion Gap 18 mmol/L (10-20); BUN (Urea Nitrogen) 73 mg/dL (9.8-20.1); Calc. Creatinine Clearance 25 mL/min (70-130); Calcium 7.4 mg/dL (7.8-10.44); Carbon Dioxide 18 mmol/L (23-31); Chloride 112 mmol/L (98-107); Estimated GFR-MDRD 11; Glucose 476 mg/dL (80-115); Potassium 3.4 mmol/L (3.5-5.1); Sodium 145 mmol/L (136-145)
[2017-02-12] MEDS ORDERED: Sodium Bicarb 50 MEQ/50 ML Abboject 8.4% SYRINGE IVP SCH (13:45)
[2017-02-12] MEDS ORDERED: Potassium Chloride 40 MEQ in Premix Bag 1 BAG IVPB ONE (13:45)
--- NOTE | 2017-02-12 14:52 | PDOC.PN ---
- Subjective Encounter Start Date: 02/12/17 Encounter Start Time: 11:20 Pt seen for followup re: pneumonia. Intubated, still appears startled at times , unable to answer questions, could not complete ROS. - Objective Resuscitation Status: Resuscitation Status FULL:Full Resuscitation MAR Reviewed: Yes Vital Signs & Weight: Vital Signs (12 hours) Temp Pulse Resp BP Pulse Ox 02/12/17 14:00 29 H 02/12/17 13:54 78 149/84 H 02/12/17 12:00 24 H 02/12/17 11:18 80 176/97 H 02/12/17 11:00 98.1 F 02/12/17 10:00 40 H 02/12/17 08:00 97.7 F 75 24 H 99 02/12/17 07:53 66 02/12/17 06:00 29 H 02/12/17 04:00 97.1 F L 20 Weight Admit Weight 306 lb Weight 304 lb 7.334 oz Most Recent Monitor Data Heart Rate from ECG 76 NIBP 156/86 NIBP BP-Mean 123 Respiration from ECG 24 SpO2 97 I&O: 02/11/17 02/12/17 02/13/17 06:59 06:59 06:59 Intake Total 3178 3398.5 200 Output Total 595 885 365 Balance 2583 2513.5 -165 Result Diagrams: 02/12/17 04:00 02/12/17 12:29 Additional Labs: Accuchecks 02/12/17 02/12/17 02/12/17 11:06 04:09 04:06 POC Glucose 464 H 445 H 426 H 02/11/17 02/11/17 02/11/17 21:59 18:16 13:18 POC Glucose 379 H 319 H 260 H EKG Reviewed by me: Yes (Tele: NSR) Phys Exam - Physical Examination Morbid obesity HEENT: moist MMs ETT Neck: no nodes Respiratory: no wheezing, no rales, no rhonchi, clear to auscultation bilateral Cardiovascular: RRR, no rub Gastrointestinal: soft, non-tender, positive bowel sounds distention Neurological: moves all 4 limbs Deviation from normal: Unable to assess orientation to person, place or time, pt appears startled Skin: no rash, normal turgor, cap refill <2 seconds Dx/Plan (1) Pneumonia Code(s): J18.9 - PNEUMONIA, UNSPECIFIED ORGANISM Status: Acute (2) Influenza A Code(s): J10.1 - FLU DUE TO OTH IDENT INFLUENZA VIRUS W OTH RESP MANIFEST Status: Acute (3) Acute respiratory failure with hypoxia and hypercapnia Code(s): J96.01 - ACUTE RESPIRATORY FAILURE WITH HYPOXIA; J96.02 - ACUTE RESPIRATORY FAILURE WITH HYPERCAPNIA Status: Acute (4) Sepsis Code(s): A41.9 - SEPSIS, UNSPECIFIED ORGANISM Status: Acute (5) Acute kidney failure Status: Acute Qualifiers: Acute renal failure type: unspecified Qualified Code(s): N17.9 - Acute kidney failure, unspecified (6) Bipolar 1 disorder Code(s): F31.9 - BIPOLAR DISORDER, UNSPECIFIED Status: Chronic (7) DM (diabetes mellitus), type 2, uncontrolled Code(s): E11.65 - TYPE 2 DIABETES MELLITUS WITH HYPERGLYCEMIA Status: Chronic Qualifiers: Diabetes mellitus complication status: with kidney complications (8) HTN (hypertension) Code(s): I10 - ESSENTIAL (PRIMARY) HYPERTENSION Status: Chronic Qualifiers: Hypertension type: essential hypertension Qualified Code(s): I10 - Essential (primary) hypertension - Plan * . Continue antibiotics as below, await blood cultures. Continue Tamiflu. Continue accuchecks, insulin sliding scale. Monitor vital signs, titrate antihypertensives as needed, pt is on PRN IV hydralazine. Replace potassium. creatinine improved today. Review of Systems - Medications/Allergies Allergies/Adverse Reactions: Allergies Allergy/AdvReac Type Severity Reaction Status Date / Time Penicillins Allergy Mild Verified 09/13/12 23:25 Medications: Current Medications Acetaminophen (Tylenol) 650 mg MT Q4H PRN PRN Reason: Headache/Fever or Mild Pain Dextrose/Water (Dextrose 50%) 25 gm IVP PRN PRN PRN Reason: HYPOGLYCEMIA PROTOCOL Famotidine (Pepcid) 20 mg SLOW IVP DAILY [facility] Last Admin: 02/12/17 08:19 Dose: 20 mg Glucagon (Glucagon) 1 mg IM PRN PRN PRN Reason: HYPOGLYCEMIA PROTOCOL Guaifenesin (Organ-I Nr) 400 mg PO Q4H PRN PRN Reason: Cough Hydralazine HCl (Apresoline) 10 mg SLOW IVP Q6H PRN PRN Reason: SBP Greater Than 170 Last Admin: 02/11/17 13:15 Dose: 10 mg Hydrocortisone Sodium Succinate (Solu-Cortef) 50 mg IVP Q12HR [facility] Vancomycin HCl 750 mg/ Sodium (Chloride) 250 mls @ 250 mls/hr IVPB 0100 [facility] Last Admin: 02/12/17 00:06 Dose: 250 mls Cefepime HCl 2 gm/ Syringe 2.5 (ml/ Sterile Water) 12.5 mls @ 150 mls/hr SLOW IVP 2100 [facility] Last Admin: 02/11/17 21:44 Dose: 12.5 mls Fentanyl Citrate 2,000 mcg/ (Sodium Chloride) 100 mls @ 0 mls/hr IV INF [facility]; Per Protocol PRN Reason: Protocol Stop: 03/12/17 03:26 Fentanyl Citrate (Fentanyl Bolus) 250 mls @ 0 mls/hr IVPB PRN PRN; As Directed PRN Reason: Breakthrough pain Stop: 03/12/17 03:26 Ascorbic Acid 1,500 mg/ Sodium (Chloride) 53 mls @ 100 mls/hr IVPB Q6HR [facility] Stop: 02/14/17 12:01 Last Admin: 02/12/17 12:47 Dose: 53 mls Dextrose/Water (D5w) 1,000 mls @ 0 mls/hr IV INF PRN; As Directed PRN Reason: HYPOGLYCEMIA PROTOCOL Sodium Chloride (1/2 Normal Saline) 1,000 mls @ 50 mls/hr IV .Q20H [facility] Last Admin: 02/12/17 11:30 Dose: 1,000 mls Potassium Chloride 40 meq/ (Device) 100 mls @ 25 mls/hr IVPB NOW ONE Stop: 02/12/17 17:44 Last Admin: 02/12/17 14:21 Dose: 100 mls Insulin Human NPH (Humulin N) 40 unit SC Q12HR [facility] Insulin Human Regular (Humulin R) 0 units SC .AGGRESSIVE SLIDING PRN; Protocol PRN Reason: AGGRESSIVE SLIDING SCALE Last Admin: 02/12/17 11:12 Dose: 13 unit Lorazepam (Ativan) 2 mg SLOW IVP Q2H PRN PRN Reason: Anxiety to achieve Gaines 2-3 Stop: 03/12/17 03:26 Miscellaneous Medication (Ventilator Sedation Protocol) 1 each FS ONE [facility] Stop: 03/12/17 03:12 Miscellaneous Medication (Pharmacy To Dose) 1 each IVPB PRN PRN PRN Reason: Pharmacy to dose Morphine Sulfate (Morphine) 2 mg IVP Q2H PRN PRN Reason: Breakthrough pain Stop: 03/12/17 03:26 Ondansetron HCl (Zofran Odt) 4 mg PO Q6H PRN PRN Reason: Nausea/Vomiting Ondansetron HCl (Zofran) 4 mg IVP Q6H PRN PRN Reason: Nausea/Vomiting Propofol (Diprivan) 1,000 mg IV INF PRN; Protocol PRN Reason: TO ACHIEVE GAINES SCORE 2-3 Stop: 03/12/17 03:26 Last Admin: 02/12/17 11:10 Dose: 1,000 mg Sodium Bicarbonate (Bicarbonate, Sodium) 50 meq IVP NOW [facility] Stop: 02/12/17 15:45 Last Admin: 02/12/17 14:21 Dose: 50 meq Sodium Chloride (Flush - Normal Saline) 10 ml IVF Q12HR [facility] Last Admin: 02/12/17 08:19 Dose: 10 ml Sodium Chloride (Flush - Normal Saline) 10 ml IVF PRN PRN PRN Reason: Saline Flush Thiamine HCl (Thiamine Hcl) 200 mg SLOW IVP Q12HR [facility] Stop: 02/14/17 09:01 Last Admin: 02/12/17 08:19 Dose: 200 mg
--- NOTE | 2017-02-12 20:00 | PRG ---
DATE OF SERVICE: 02/12/2017 SUBJECTIVE: The patient was seen and examined in the ICU, intubated, opens her eyes to verbal stimuli, but not following commands. PHYSICAL EXAMINATION: VITAL SIGNS: Temperature 98.1, pulse 77, respiratory rate 18, and blood pressure 156/86. HEENT: Intubated. CARDIOVASCULAR: S1 and S2 heard. Rate and rhythm regular. RESPIRATORY: Clear. MUSCULOSKELETAL: 1+ edema. DERMATOLOGIC: No skin rash. NEUROLOGIC: Intubated. LABORATORY DATA: Potassium is 3.4, BUN is 73, creatinine is 4.8. ASSESSMENT AND PLAN: 1. Acute kidney injury seems like renal function is getting better. Urine output is improving. We will monitor. 2. Hypernatremia. Continue free water. 3. Metabolic acidosis. We will give bicarbonate push today. 4. Pneumonia. 5. Anxiety. 6. Anemia. 7. History of hypertension, stable. 8. Renal function seems to be getting better. We will follow on acidosis. Replete potassium. MTDD
[2017-02-12] MEDS: Cefepime 2 GM, Syringe 2.5 ML in Sterile Water 10 ML SLOW IVP SCH (20:10)
[2017-02-13] MEDS: Vancomycin HCl 750 MG in Sodium Chloride 0.9% 250 ML 250 ML IVPB SCH (00:42)
[2017-02-13] MEDS: Propofol 1,000 MG/100 ML VIAL IV PRN ×6 (03:16→23:38)
[2017-02-13] MEDS: Insulin Regular 300 UNITS/3 ML VIAL SC PRN ×3 (03:55→17:38)
[2017-02-13 04:45] LABS: ALT (SGPT) 260 U/L (8-55); AST (SGOT) 211 U/L (5-34); Albumin 2.4 g/dL (3.4-4.8); Alkaline Phosphatase 91 U/L (40-150); Anion Gap 19 mmol/L (10-20); BUN (Urea Nitrogen) 78 mg/dL (9.8-20.1); Bilirubin, Direct 0.2 mg/dL (0.1-0.3); Bilirubin, Total 0.2 mg/dL (0.2-1.2); Calc. Creatinine Clearance 29 mL/min (70-130); Calcium 7.2 mg/dL (7.8-10.44); Carbon Dioxide 20 mmol/L (23-31); Chloride 114 mmol/L (98-107); Estimated GFR-MDRD 13; Glucose 313 mg/dL (80-115); Potassium 3.6 mmol/L (3.5-5.1); Protein, Total 5.5 g/dL (6.0-8.3); Sodium 149 mmol/L (136-145)
[2017-02-13 04:51] LABS: Band 12 % (5-11); Lymphocytes 12 % (21-51); MDiff Complete? YES; Mean Corpuscular Hemoglobin 26.2 pg (27.0-31.0); Mean Corpuscular Volume 84.6 fl (81.0-99.0); Mean Platelet Volume 11.1 fL (7.4-10.4); Monocytes 8 % (0-10); Neutrophil 68 % (42-75); PLT Morphology Comment Appears Decreased; Platelet Count 44 thou/uL (130-400); Red Blood Cell (RBC) Count 3.83 mill/uL (4.20-5.40); White Blood Cell (WBC) Count 4.6 thou/uL (4.8-10.8)
[2017-02-13 08:13] LABS: Actual Bicarbonate (HCO3a) 20.9 mEq/L (22-26); Base Excess (BEa) -4.5 mEq/L (0 (+/-) 2.5); CO2 Tension 39.8 mmHg (35.0-45.0); Hematocrit-ABG 28.4 % (36.0-47.0); Hemoglobin (Hb) 9.8 g/dL (12.0-16.0); O2 Tension (PaO2) 52.4 mmHg (80.0-100.0); pH, Arterial 7.34 (7.35-7.45)
[2017-02-13 08:15] LABS: Puncture Site LRA
[2017-02-13] MEDS: NPH, Human Insulin Isophane 300 UNIT/3 ML VIAL SC SCH ×3 (09:01→22:04)
[2017-02-13] MEDS: Thiamine HCl 200 MG/2 ML VIAL SLOW IVP SCH ×2 (09:03→21:39)
[2017-02-13] MEDS: Hydrocortisone Sod Succ/PF 100 mg/2 ml Vial IVP SCH (09:03)
[2017-02-13] MEDS: Famotidine/PF 20 mg/2ml Vial SLOW IVP SCH (09:06)
[2017-02-13] MEDS: Sodium Chloride 0.45% 1,000 ML IV SCH (09:10)
[2017-02-13] MEDS ORDERED: Furosemide 100 MG/10 ML VIAL SLOW IVP SCH (14:30)
[2017-02-13] MEDS ORDERED: Sodium Chloride 0.45% 1,000 ML IV SCH (14:30)
--- NOTE | 2017-02-13 14:32 | RAD ---
PORTABLE CHEST 1 VIEW: DATE: 02/13/17. TIME: 5:03 a.m. HISTORY: Respiratory failure. FINDINGS: Allowing for differences in technique, no significant interval change is seen since the previous day' s exam. POS: SAMANTHA
--- NOTE | 2017-02-13 16:11 | PDOC.PN ---
- Subjective Encounter Start Date: 02/13/17 Encounter Start Time: 12:00 -: non-verbal Pt seen for followup re: pneumonia. Intubated, unable to complete ROS. Not appearing startled today. - Objective Resuscitation Status: Resuscitation Status FULL:Full Resuscitation MAR Reviewed: Yes Vital Signs & Weight: Vital Signs (12 hours) Temp Pulse Resp BP Pulse Ox 02/13/17 15:06 83 152/72 H 02/13/17 10:55 77 142/66 H 02/13/17 08:00 97.8 F 71 37 H 92 L 02/13/17 07:30 73 153/76 H 02/13/17 06:00 27 H Weight Admit Weight 306 lb Weight 313 lb 11.485 oz Most Recent Monitor Data Heart Rate from ECG 86 NIBP 155/66 NIBP BP-Mean 87 Respiration from ECG 42 SpO2 93 I&O: 02/12/17 02/13/17 02/14/17 06:59 06:59 06:59 Intake Total 3398.5 4862 Output Total 885 1345 Balance 2513.5 3517 Result Diagrams: 02/13/17 03:53 02/13/17 03:53 Additional Labs: Accuchecks 02/13/17 02/13/17 02/12/17 11:44 03:53 22:23 POC Glucose 230 H 322 H 356 H 02/12/17 16:15 POC Glucose 447 H EKG Reviewed by me: Yes (Tele: NSR) Phys Exam - Physical Examination Intubated HEENT: moist MMs Respiratory: no wheezing, no rales, no rhonchi, clear to auscultation bilateral Cardiovascular: RRR Gastrointestinal: soft Neurological: moves all 4 limbs Dx/Plan (1) Pneumonia Code(s): J18.9 - PNEUMONIA, UNSPECIFIED ORGANISM Status: Acute (2) Influenza A Code(s): J10.1 - FLU DUE TO OTH IDENT INFLUENZA VIRUS W OTH RESP MANIFEST Status: Acute (3) Acute respiratory failure with hypoxia and hypercapnia Code(s): J96.01 - ACUTE RESPIRATORY FAILURE WITH HYPOXIA; J96.02 - ACUTE RESPIRATORY FAILURE WITH HYPERCAPNIA Status: Acute (4) Sepsis Code(s): A41.9 - SEPSIS, UNSPECIFIED ORGANISM Status: Acute (5) Acute kidney failure Status: Acute Qualifiers: Acute renal failure type: unspecified Qualified Code(s): N17.9 - Acute kidney failure, unspecified (6) Bipolar 1 disorder Code(s): F31.9 - BIPOLAR DISORDER, UNSPECIFIED Status: Chronic (7) DM (diabetes mellitus), type 2, uncontrolled Code(s): E11.65 - TYPE 2 DIABETES MELLITUS WITH HYPERGLYCEMIA Status: Chronic Qualifiers: Diabetes mellitus complication status: with kidney complications (8) HTN (hypertension) Code(s): I10 - ESSENTIAL (PRIMARY) HYPERTENSION Status: Chronic Qualifiers: Hypertension type: essential hypertension Qualified Code(s): I10 - Essential (primary) hypertension - Plan continue antibiotics * . Creatinine improving. Blood sugars were high, but have started trending down after switching to Glucerna. Continue to monitor accuchecks. If sugars still high, may need adjustments to insulin dose. Continue IV antibiotics as below. Review of Systems - Medications/Allergies Allergies/Adverse Reactions: Allergies Allergy/AdvReac Type Severity Reaction Status Date / Time Penicillins Allergy Mild Verified 09/13/12 23:25 Medications: Current Medications Acetaminophen (Tylenol) 650 mg MA Q4H PRN PRN Reason: Headache/Fever or Mild Pain Amlodipine Besylate (Norvasc) 10 mg PO DAILY [facility] Carvedilol (Coreg) 6.25 mg PO BID[facility] Dextrose/Water (Dextrose 50%) 25 gm IVP PRN PRN PRN Reason: HYPOGLYCEMIA PROTOCOL Famotidine (Pepcid) 20 mg SLOW IVP DAILY [facility] Last Admin: 02/13/17 09:06 Dose: 20 mg Furosemide (Lasix) 40 mg SLOW IVP 0600 [facility] Furosemide (Lasix) 80 mg SLOW IVP NOW [facility] Stop: 02/13/17 16:30 Last Admin: 02/13/17 15:39 Dose: 80 mg Glucagon (Glucagon) 1 mg IM PRN PRN PRN Reason: HYPOGLYCEMIA PROTOCOL Guaifenesin (Organ-I Nr) 400 mg PO Q4H PRN PRN Reason: Cough Hydralazine HCl (Apresoline) 10 mg SLOW IVP Q6H PRN PRN Reason: SBP Greater Than 170 Last Admin: 02/11/17 13:15 Dose: 10 mg Vancomycin HCl 750 mg/ Sodium (Chloride) 250 mls @ 250 mls/hr IVPB 0100 [facility] Last Admin: 02/13/17 00:42 Dose: 250 mls Cefepime HCl 2 gm/ Syringe 2.5 (ml/ Sterile Water) 12.5 mls @ 150 mls/hr SLOW IVP 2100 [facility] Last Admin: 02/12/17 20:10 Dose: 12.5 mls Fentanyl Citrate 2,000 mcg/ (Sodium Chloride) 100 mls @ 0 mls/hr IV INF [facility]; Per Protocol PRN Reason: Protocol Stop: 03/12/17 03:26 Fentanyl Citrate (Fentanyl Bolus) 250 mls @ 0 mls/hr IVPB PRN PRN; As Directed PRN Reason: Breakthrough pain Stop: 03/12/17 03:26 Ascorbic Acid 1,500 mg/ Sodium (Chloride) 53 mls @ 100 mls/hr IVPB Q6HR [facility] Stop: 02/14/17 12:01 Last Admin: 02/13/17 13:23 Dose: 53 mls Dextrose/Water (D5w) 1,000 mls @ 0 mls/hr IV INF PRN; As Directed PRN Reason: HYPOGLYCEMIA PROTOCOL Sodium Chloride (1/2 Normal Saline) 1,000 mls @ 0 mls/hr IV .Q0M [facility] PRN Reason: KVO Insulin Human NPH (Humulin N) 40 unit SC Q12HR [facility] Last Admin: 02/13/17 09:01 Dose: 40 unit Insulin Human Regular (Humulin R) 0 units SC .AGGRESSIVE SLIDING PRN; Protocol PRN Reason: AGGRESSIVE SLIDING SCALE Last Admin: 02/13/17 11:49 Dose: 6 unit Miscellaneous Medication (Pharmacy To Dose) 1 each IVPB PRN PRN PRN Reason: Pharmacy to dose Morphine Sulfate (Morphine) 2 mg IVP Q2H PRN PRN Reason: Breakthrough pain Stop: 03/12/17 03:26 Ondansetron HCl (Zofran Odt) 4 mg PO Q6H PRN PRN Reason: Nausea/Vomiting Ondansetron HCl (Zofran) 4 mg IVP Q6H PRN PRN Reason: Nausea/Vomiting Potassium Chloride (Klor-Con) 40 meq PO NOW [facility] Stop: 02/13/17 16:30 Last Admin: 02/13/17 15:39 Dose: 40 meq Propofol (Diprivan) 1,000 mg IV INF PRN; Protocol PRN Reason: TO ACHIEVE GAINES SCORE 2-3 Stop: 03/12/17 03:26 Last Admin: 02/13/17 15:38 Dose: 1,000 mg Sodium Chloride (Flush - Normal Saline) 10 ml IVF Q12HR [facility] Last Admin: 02/13/17 09:03 Dose: 10 ml Sodium Chloride (Flush - Normal Saline) 10 ml IVF PRN PRN PRN Reason: Saline Flush Thiamine HCl (Thiamine Hcl) 200 mg SLOW IVP Q12HR [facility] Stop: 02/14/17 09:01 Last Admin: 02/13/17 09:03 Dose: 200 mg
--- NOTE | 2017-02-13 16:56 | PRG ---
DATE OF SERVICE: 02/13/2017 SERVICE: Pulmonary Medicine. INTERVAL HISTORY: The patient is doing okay from a respiratory standpoint. Oxygen requirements brennan in quite elevated. She is encephalopathic, mostly secondary to medications. Otherwise, there has be en no interval change to her condition. She cannot provide additional elements of the history becaus e of sedation. PHYSICAL EXAMINATION: VITAL SIGNS: Afebrile, pulse 77, blood pressure 142/66, respiration 37, saturation 93% on 50% FIO2 a nd PEEP of 7. GENERAL: Patient is intubated and sedated. She is awake and attends, but she does not follow any co mmands at this point. HEENT: Normocephalic, atraumatic. Sclerae are white, conjunctivae pink. Oral mucosa is moist witho ut lesions. LUNGS: Rhonchi are present bilaterally. Lungs sounds are actually much better on the right compared to left. HEART: Normal rate, regular. ABDOMEN: Soft, nontender, nondistended. Bowel sounds are positive. MUSCULOSKELETAL: No cyanosis or clubbing. There is diffuse pitting, which is trace to 1+ throughout . GENITOURINARY: Ramos catheter in place. NEUROLOGIC: Grossly nonfocal. LABORATORY DATA: WBC 4.6, hemoglobin 10.0, platelets 44,000, trending downward. Band count is 12%. Total neutrophil count is elevated. Band count is actually decreasing. PH 7.34, pCO2 of 39, pO2 of 52. Sodium 149 and trending upward, chloride is also trending upward at 114. Creatinine 4.08 and d owntrending. Liver function studies are otherwise unremarkable and improving. Urinalysis is unremar kable. Urine drug screen is positive for opiates and cannabinoids. Respiratory cultures negative to date. Influenza A is positive, B negative. Blood cultures x2 are negative. IMAGING: Chest x-ray demonstrates dense infiltrate in the right mid upper lung field. There is francisca re rotation in this film. There is also patchy alveolar infiltrates in the right lower lobe. Most o f the left lung is obscured by the enlarged cardiac border. ASSESSMENT: 1. Acute hypoxic respiratory failure. 2. Acute kidney injury on chronic kidney disease 2. 3. Acute on chronic diastolic heart failure. 4. Community-acquired pneumonia secondary to influenza A. 5. Septic shock, resolved. PLAN: At this point, she is clearing her sepsis profile very nicely, but her oxygen requirements are extraordinarily elevated. Clinically, she is volume overloaded. A couple doses of Lasix will be in itiated. Hopefully, she will start to increase urine output. Once we have better control of her vol ume status, we can consider her for spontaneous breathing trial, but currently, her oxygen requiremen t is simply too great to support this. Home medications are going to be restarted today. Empiric an tibiotics will be continued. Critical care time: 30 minutes.
[2017-02-13] MEDS: Carvedilol 6.25 MG TAB PO SCH (17:37)
[2017-02-13] MEDS: Cefepime 2 GM, Syringe 2.5 ML in Sterile Water 10 ML SLOW IVP SCH (21:44)
--- NOTE | 2017-02-13 23:07 | PRG ---
DATE OF SERVICE: 02/13/2017 SUBJECTIVE: The patient was seen and examined in ICU. The patient is opening her eyes to verbal sti muli, but no ocular response other than that. OBJECTIVE: GENERAL: This is a morbidly obese female, who is in ICU and intubated. VITAL SIGNS: Temperature 97.8, pulse 87, respiratory rate , blood pressure 155/66. HEENT: Intubated. CARDIOVASCULAR: S1, S2 heard. Rate and rhythm regular. RESPIRATORY: Clear. GASTROINTESTINAL: Abdomen is obese, soft. MUSCULOSKELETAL: 1+ edema. DERMATOLOGIC: No skin rash. NEUROLOGIC: Intubated and opened the eyes, but no further response. LABORATORY DATA: Hemoglobin is 10.0, WBC is 4.6. Potassium 3.6, BUN is 78, creatinine is 4.08. ASSESSMENT AND PLAN: 1. Acute kidney injury seems like renal function is better, 4.08 from 4.80 with significant urine ou tput. She almost made 1345 mL of urine yesterday. 2. Hypokalemia, replaced per protocol. 3. Acidosis. We will monitor. 4. Hypernatremia, better. Continue free water as tolerated. 5. Hyperglycemia. 6. Anemia, mild. 7. Acute hypoxic respiratory failure. 8. Altered mentation. Overall, renal function is getting better. Avoid nephrotoxins. We will follow. No acute indication for dialysis. Continue supportive care.
[2017-02-14 00:26] LABS: Vancomycin, Trough 20.2 ug/mL
[2017-02-14] MEDS: Vancomycin HCl 750 MG in Sodium Chloride 0.9% 250 ML 250 ML IVPB SCH (01:16)
[2017-02-14] MEDS: Propofol 1,000 MG/100 ML VIAL IV PRN ×5 (02:50→17:02)
[2017-02-14 04:34] LABS: ALT (SGPT) 208 U/L (8-55); AST (SGOT) 163 U/L (5-34); Albumin 2.6 g/dL (3.4-4.8); Alkaline Phosphatase 97 U/L (40-150); Anion Gap 16 mmol/L (10-20); BUN (Urea Nitrogen) 76 mg/dL (9.8-20.1); Bilirubin, Direct 0.3 mg/dL (0.1-0.3); Bilirubin, Total 0.3 mg/dL (0.2-1.2); Calc. Creatinine Clearance 43 mL/min (70-130); Calcium 7.3 mg/dL (7.8-10.44); Carbon Dioxide 26 mmol/L (23-31); Chloride 113 mmol/L (98-107); Estimated GFR-MDRD 20; Glucose 85 mg/dL (80-115); Potassium 3.4 mmol/L (3.5-5.1); Protein, Total 5.6 g/dL (6.0-8.3); Sodium 152 mmol/L (136-145)
[2017-02-14 05:04] LABS: Band 10 % (5-11); Hemoglobin 10.2 g/dL (12.0-16.0); Lymphocytes 15 % (21-51); MDiff Complete? YES; Mean Corpuscular HGB CONC 31.4 g/dL (32.0-36.0); Mean Corpuscular Hemoglobin 26.3 pg (27.0-31.0); Mean Corpuscular Volume 83.9 fl (81.0-99.0); Mean Platelet Volume 8.4 fL (7.4-10.4); Monocytes 4 % (0-10); Neutrophil 71 % (42-75); PLT Morphology Comment Appears Decreased; Platelet Count 62 thou/uL (130-400); RBC Distribution Width 16.8 % (11.5-14.5); Red Blood Cell (RBC) Count 3.87 mill/uL (4.20-5.40); White Blood Cell (WBC) Count 6.4 thou/uL (4.8-10.8)
[2017-02-14] MEDS ORDERED: Furosemide 40 MG/4 ML VIAL SLOW IVP SCH (06:00)
[2017-02-14 07:28] LABS: Actual Bicarbonate (HCO3a) 24.2 mEq/L (22-26); Base Excess (BEa) 0.7 mEq/L (0 (+/-) 2.5); CO2 Tension 34.4 mmHg (35.0-45.0); Hematocrit-ABG 27.3 % (36.0-47.0); Hemoglobin (Hb) 9.3 g/dL (12.0-16.0); O2 Tension (PaO2) 51.7 mmHg (80.0-100.0); pH, Arterial 7.47 (7.35-7.45)
[2017-02-14 07:30] LABS: Puncture Site LRA
[2017-02-14] MEDS: Amlodipine 10 MG TAB PO SCH (08:32)
[2017-02-14] MEDS: Thiamine HCl 200 MG/2 ML VIAL SLOW IVP SCH (08:32)
[2017-02-14] MEDS: Famotidine/PF 20 mg/2ml Vial SLOW IVP SCH (08:32)
[2017-02-14] MEDS: Carvedilol 6.25 MG TAB PO SCH ×2 (08:32→17:03)
[2017-02-14] MEDS ORDERED: Potassium Chloride 40 MEQ in Premix Bag 1 BAG IVPB SCH (09:00)
--- NOTE | 2017-02-14 10:37 | PRG ---
DATE OF SERVICE: 02/14/2017 SERVICE: Pulmonary Medicine. INTERVAL HISTORY: The patient is doing okay from a respiratory standpoint. She is little hypoxemic this morning on ABG and so we have given her a little bit of extra support. Otherwise, there has bee n no interval change to her condition. She will attend when you look at her, but she is really not f ollowing any significant commands. She is awake and alert, but remains encephalopathic. She require s a fairly decent dose of propofol at this time. PHYSICAL EXAMINATION: VITAL SIGNS: Afebrile currently with T-max of 100.3. Pulse 88, blood pressure 151/65, respirations 38, and saturation 96% on room air. GENERAL: Patient is awake, alert. That being said, she is not following any commands. She attends but does little else. HEENT: Normocephalic, atraumatic. Sclerae are white, conjunctivae pink. Oral mucosa is moist witho ut lesions. LUNGS: Decent air entry. There is no prolonged expiratory phase. Crackles are present. No rhonchi are appreciated. HEART: Normal rate and regular. ABDOMEN: Soft, nontender, nondistended. Bowel sounds are positive. MUSCULOSKELETAL: No cyanosis or clubbing. Diffuse pitting is present throughout. GENITOURINARY: Ramos catheter in place. NEUROLOGIC: Grossly nonfocal. LABORATORY DATA: WBC 6.4, hemoglobin 10.2, and platelets 62,000. A pH 7.47, pCO2 34, pO2 52 corresp onding to saturation of 89%. AST and ALT are down trending still. Creatinine 2.83, which continues to trend downward. BUN 76 which is stable. Chloride 113, potassium 3.4. Sodium 152 and is up trend ing. ASSESSMENT: 1. Acute hypoxic respiratory failure. 2. Acute kidney injury on chronic kidney disease 2. 3. Acute on chronic diastolic heart failure. 4. Community-acquired pneumonia secondary to influenza A. 5. Septic shock, resolved. PLAN: We will continue to diurese the patient to euvolemia. We will increase her free water and rep lace dose of potassium today. Our goal is to get her negative 1-2 liters over the next 24 hours. Pu lmonary or Critical Care will continue to follow. CRITICAL CARE TIME: 30 minutes.
[2017-02-14] MEDS: Furosemide 40 MG/4 ML VIAL SLOW IVP SCH (13:35)
[2017-02-14] MEDS: Insulin Regular 300 UNITS/3 ML VIAL SC PRN (16:23)
--- NOTE | 2017-02-14 18:22 | PRG ---
DATE OF SERVICE: 02/14/2017 SUBJECTIVE: The patient was seen and examined in ICU. She is intubated and opens her eyes, but not responding much. OBJECTIVE: GENERAL: This is a morbidly obese female seen in ICU, intubated. VITAL SIGNS: Temperature 100.2, pulse 70, respiratory rate 33, blood pressure 122/51. HEENT: Intubated. CARDIOVASCULAR: S1, S2 heard. RESPIRATORY: Clear. ABDOMEN: Soft. MUSCULOSKELETAL: 1+ edema. DERMATOLOGIC: No skin rash. NEUROLOGIC: Intubated and sedated. LABORATORY DATA: Potassium is 3.4, BUN is 76, creatinine is 2.83. ASSESSMENT AND PLAN: 1. Acute kidney injury. Renal function with improvement. 2. Hypokalemia, most likely from diuresis. 3. Hypernatremia, free water. Recommend free water as tolerated. 4. Anemia. 5. Acute hypoxic respiratory failure. 6. Renal function is stable and much better. No acute indication for dialysis. Recommend free wate r if tolerated.
--- NOTE | 2017-02-14 19:09 | PDOC.PN ---
- Subjective Encounter Start Date: 02/14/17 Encounter Start Time: 09:40 Pt seen for followup re: pneumonia. Intubated, unable to complete ROS. - Objective Resuscitation Status: Resuscitation Status FULL:Full Resuscitation MAR Reviewed: Yes Vital Signs & Weight: Vital Signs (12 hours) Temp Pulse Resp BP Pulse Ox 02/14/17 18:00 33 H 02/14/17 17:03 108/51 L 02/14/17 16:00 100.2 F H 39 H 02/14/17 15:30 89 146/85 H 02/14/17 14:00 47 H 02/14/17 12:00 100.0 F H 45 H 02/14/17 10:00 39 H 02/14/17 08:32 89 152/66 H 02/14/17 08:00 44 H 02/14/17 07:34 100.3 F H 89 42 H 95 Weight Admit Weight 306 lb Weight 322 lb 5.053 oz Most Recent Monitor Data Heart Rate from ECG 78 NIBP 122/54 NIBP BP-Mean 75 Respiration from ECG 33 SpO2 91 I&O: 02/13/17 02/14/17 02/15/17 06:59 06:59 06:59 Intake Total 4862 3998 1868 Output Total 5476 4866 2651 Balance 8891 -5287 -941 Result Diagrams: 02/14/17 03:35 02/14/17 03:35 Additional Labs: Accuchecks 02/14/17 02/14/17 02/14/17 16:09 09:49 03:38 POC Glucose 189 H 130 H 118 H 02/13/17 21:37 POC Glucose 130 H EKG Reviewed by me: Yes (Tele: NSR) Phys Exam - Physical Examination Intubated ETT Respiratory: clear to auscultation bilateral Cardiovascular: RRR Gastrointestinal: soft Neurological: moves all 4 limbs Psychiatric: normal affect Deviation from normal: Not startled today Skin: no rash Dx/Plan (1) Pneumonia Code(s): J18.9 - PNEUMONIA, UNSPECIFIED ORGANISM Status: Acute (2) Influenza A Code(s): J10.1 - FLU DUE TO OTH IDENT INFLUENZA VIRUS W OTH RESP MANIFEST Status: Acute (3) Acute respiratory failure with hypoxia and hypercapnia Code(s): J96.01 - ACUTE RESPIRATORY FAILURE WITH HYPOXIA; J96.02 - ACUTE RESPIRATORY FAILURE WITH HYPERCAPNIA Status: Acute (4) Sepsis Code(s): A41.9 - SEPSIS, UNSPECIFIED ORGANISM Status: Acute (5) Acute kidney failure Status: Acute Qualifiers: Acute renal failure type: unspecified Qualified Code(s): N17.9 - Acute kidney failure, unspecified (6) Bipolar 1 disorder Code(s): F31.9 - BIPOLAR DISORDER, UNSPECIFIED Status: Chronic (7) DM (diabetes mellitus), type 2, uncontrolled Code(s): E11.65 - TYPE 2 DIABETES MELLITUS WITH HYPERGLYCEMIA Status: Chronic Qualifiers: Diabetes mellitus complication status: with kidney complications (8) HTN (hypertension) Code(s): I10 - ESSENTIAL (PRIMARY) HYPERTENSION Status: Chronic Qualifiers: Hypertension type: essential hypertension Qualified Code(s): I10 - Essential (primary) hypertension - Plan * . Continue IV antibiotics (vancomycin, cefepime). Creatinine improving. Potassium being replaced. Continue accuchecks, insulin sliding scale. Review of Systems - Medications/Allergies Allergies/Adverse Reactions: Allergies Allergy/AdvReac Type Severity Reaction Status Date / Time Penicillins Allergy Mild Verified 09/13/12 23:25 Medications: Current Medications Acetaminophen (Tylenol) 650 mg SD Q4H PRN PRN Reason: Headache/Fever or Mild Pain Amlodipine Besylate (Norvasc) 10 mg PO DAILY [facility] Last Admin: 02/14/17 08:32 Dose: 10 mg Carvedilol (Coreg) 6.25 mg PO BID-[facility] Last Admin: 02/14/17 17:03 Dose: 6.25 mg Dextrose/Water (Dextrose 50%) 25 gm IVP PRN PRN PRN Reason: HYPOGLYCEMIA PROTOCOL Famotidine (Pepcid) 20 mg SLOW IVP DAILY [facility] Last Admin: 02/14/17 08:32 Dose: 20 mg Furosemide (Lasix) 40 mg SLOW IVP 0600,1400 [facility] Last Admin: 02/14/17 13:35 Dose: 40 mg Glucagon (Glucagon) 1 mg IM PRN PRN PRN Reason: HYPOGLYCEMIA PROTOCOL Guaifenesin (Organ-I Nr) 400 mg PO Q4H PRN PRN Reason: Cough Hydralazine HCl (Apresoline) 10 mg SLOW IVP Q6H PRN PRN Reason: SBP Greater Than 170 Last Admin: 12/30/17 13:15 Dose: 10 mg Cefepime HCl 2 gm/ Syringe 2.5 (ml/ Sterile Water) 12.5 mls @ 150 mls/hr SLOW IVP 2100 [facility]IEL Last Admin: 02/13/17 21:44 Dose: 12.5 mls Fentanyl Citrate 2,000 mcg/ (Sodium Chloride) 100 mls @ 0 mls/hr IV INF MARIEL; Per Protocol PRN Reason: Protocol Stop: 03/12/17 03:26 Fentanyl Citrate (Fentanyl Bolus) 250 mls @ 0 mls/hr IVPB PRN PRN; As Directed PRN Reason: Breakthrough pain Stop: 03/12/17 03:26 Dextrose/Water (D5w) 1,000 mls @ 0 mls/hr IV INF PRN; As Directed PRN Reason: HYPOGLYCEMIA PROTOCOL Sodium Chloride (1/2 Normal Saline) 1,000 mls @ 0 mls/hr IV .Q0M MARIEL PRN Reason: KVO Insulin Detemir 20 units/ (Miscellaneous Medication) 0.2 mls @ 0 mls/hr SC HS [facility] Vancomycin HCl 500 mg/ Sodium (Chloride) 100 mls @ 100 mls/hr IVPB 0100 [facility] Insulin Human Regular (Humulin R) 0 units SC .AGGRESSIVE SLIDING PRN; Protocol PRN Reason: AGGRESSIVE SLIDING SCALE Last Admin: 02/14/17 16:23 Dose: 3 unit Miscellaneous Medication (Pharmacy To Dose) 1 each IVPB PRN PRN PRN Reason: Pharmacy to dose Ondansetron HCl (Zofran Odt) 4 mg PO Q6H PRN PRN Reason: Nausea/Vomiting Ondansetron HCl (Zofran) 4 mg IVP Q6H PRN PRN Reason: Nausea/Vomiting Propofol (Diprivan) 1,000 mg IV INF PRN; Protocol PRN Reason: TO ACHIEVE GAINES SCORE 2-3 Stop: 03/12/17 03:26 Last Admin: 02/14/17 17:02 Dose: 1,000 mg Sodium Chloride (Flush - Normal Saline) 10 ml IVF Q12HR [facility] Last Admin: 02/14/17 08:33 Dose: 10 ml Sodium Chloride (Flush - Normal Saline) 10 ml IVF PRN PRN PRN Reason: Saline Flush
[2017-02-14] MEDS: Cefepime 2 GM, Syringe 2.5 ML in Sterile Water 10 ML SLOW IVP SCH (21:00)
[2017-02-14] MEDS: Insulin Detemir 100 UNITS/ML 20 UNITS in Pre-Filled Syringe 1 EACH SC SCH (21:00)
[2017-02-15] MEDS ORDERED: Vancomycin HCl 500 MG in Sodium Chloride 0.9% 100 ML IVPB SCH (01:00)
[2017-02-15] MEDS: Propofol 1,000 MG/100 ML VIAL IV PRN ×8 (02:15→21:37)
[2017-02-15] MEDS: Insulin Regular 300 UNITS/3 ML VIAL SC PRN ×2 (05:03→09:57)
[2017-02-15] MEDS: Furosemide 40 MG/4 ML VIAL SLOW IVP SCH (05:03)
[2017-02-15 05:17] LABS: Anion Gap 18 mmol/L (10-20); BUN (Urea Nitrogen) 75 mg/dL (9.8-20.1); Calc. Creatinine Clearance 45 mL/min (70-130); Calcium 7.9 mg/dL (7.8-10.44); Carbon Dioxide 26 mmol/L (23-31); Chloride 110 mmol/L (98-107); Estimated GFR-MDRD 20; Glucose 213 mg/dL (80-115); Potassium 3.7 mmol/L (3.5-5.1); Sodium 150 mmol/L (136-145)
[2017-02-15 06:40] LABS: Band 2 % (5-11); Eosinophils 1 % (0-10); Hemoglobin 10.4 g/dL (12.0-16.0); Lymphocytes 14 % (21-51); MDiff Complete? YES; Mean Corpuscular HGB CONC 31.1 g/dL (32.0-36.0); Mean Corpuscular Hemoglobin 26.3 pg (27.0-31.0); Mean Corpuscular Volume 84.4 fl (81.0-99.0); Mean Platelet Volume 8.5 fL (7.4-10.4); Monocytes 1 % (0-10); Neutrophil 82 % (42-75); PLT Morphology Comment Appears Decreased; Platelet Count 82 thou/uL (130-400); RBC Distribution Width 16.9 % (11.5-14.5); Red Blood Cell (RBC) Count 3.95 mill/uL (4.20-5.40); White Blood Cell (WBC) Count 8.9 thou/uL (4.8-10.8)
[2017-02-15] MEDS: Carvedilol 6.25 MG TAB PO SCH ×2 (07:57→16:54)
[2017-02-15] MEDS: Amlodipine 10 MG TAB PO SCH (08:34)
[2017-02-15] MEDS: Famotidine/PF 20 mg/2ml Vial SLOW IVP SCH (08:34)
--- NOTE | 2017-02-15 10:24 | PDOC.PN ---
- Subjective Encounter Start Date: 02/15/17 Encounter Start Time: 09:45 -: non-verbal Subjective: INTUBATED AND SEDATED - Objective Resuscitation Status: Resuscitation Status FULL:Full Resuscitation MAR Reviewed: Yes Vital Signs & Weight: Vital Signs (12 hours) Temp Pulse Resp BP Pulse Ox 02/15/17 10:00 21 H 02/15/17 08:34 77 137/70 02/15/17 08:00 30 H 02/15/17 07:57 137/70 02/15/17 07:35 99.6 F 82 39 H 94 L 02/15/17 07:07 82 137/70 02/15/17 07:00 99.5 F 02/15/17 06:00 36 H 02/15/17 04:00 98.3 F 38 H 02/15/17 02:55 86 02/15/17 02:00 37 H 02/15/17 00:00 97.7 F 35 H 02/14/17 22:56 84 163/80 H Weight Admit Weight 306 lb Weight 328 lb 14.875 oz Most Recent Monitor Data Heart Rate from ECG 77 NIBP 124/66 NIBP BP-Mean 76 Respiration from ECG 25 SpO2 96 I&O: 02/14/17 02/15/17 02/16/17 06:59 06:59 06:59 Intake Total 3998 3129 280 Output Total 9355 3710 480 [facility] -1307 -581 -200 Result Diagrams: 02/15/17 04:20 02/15/17 04:20 Additional Labs: Accuchecks 02/15/17 02/14/17 02/14/17 04:23 21:00 16:09 POC Glucose 222 H 200 H 189 H Radiology Reviewed by me: Yes Phys Exam - Physical Examination INTUBATED AND SEDATED HEENT: PERRLA ETT IN PLACE COARSE Cardiovascular: RRR Gastrointestinal: soft, positive bowel sounds Musculoskeletal: pulses present, edema present INTUBATED AND SEDATED Deviation from normal: TRACKING ONLY Dx/Plan (1) Acute respiratory failure with hypoxia and hypercapnia Code(s): J96.01 - ACUTE RESPIRATORY FAILURE WITH HYPOXIA; J96.02 - ACUTE RESPIRATORY FAILURE WITH HYPERCAPNIA Status: Acute (2) Influenza A Code(s): J10.1 - FLU DUE TO OTH IDENT INFLUENZA VIRUS W OTH RESP MANIFEST Status: Acute (3) Pneumonia Code(s): J18.9 - PNEUMONIA, UNSPECIFIED ORGANISM Status: Acute (4) Sepsis Code(s): A41.9 - SEPSIS, UNSPECIFIED ORGANISM Status: Acute (5) Acute kidney failure Status: Acute Qualifiers: Acute renal failure type: unspecified Qualified Code(s): N17.9 - Acute kidney failure, unspecified (6) Edema Code(s): R60.9 - EDEMA, UNSPECIFIED Status: Acute (7) Volume overload Code(s): E87.70 - FLUID OVERLOAD, UNSPECIFIED Status: Acute (8) Bipolar 1 disorder Code(s): F31.9 - BIPOLAR DISORDER, UNSPECIFIED Status: Chronic (9) DM (diabetes mellitus), type 2, uncontrolled Code(s): E11.65 - TYPE 2 DIABETES MELLITUS WITH HYPERGLYCEMIA Status: Chronic Qualifiers: Diabetes mellitus complication status: with kidney complications (10) HTN (hypertension) Code(s): I10 - ESSENTIAL (PRIMARY) HYPERTENSION Status: Chronic Qualifiers: Hypertension type: essential hypertension Qualified Code(s): I10 - Essential (primary) hypertension (11) TIA (transient ischemic attack) Status: Ruled-out Qualifiers: Transient cerebral ischemia type: unspecified Qualified Code(s): G45.9 - Transient cerebral ischemic attack, unspecified - Plan cont current plan of care, respiratory therapy d/c antimicrobials. na improved, cont. free water. -: MRI r/o acute ischemic event. * . - Discharge Day Encounter end time: 10:26
--- NOTE | 2017-02-15 12:33 | PRG ---
DATE OF SERVICE: 02/15/2017 SERVICE: Pulmonary Medicine. INTERVAL HISTORY: The patient is doing okay from a cardiovascular standpoint. She remains tachypnei c. She is very poorly responsive despite the fact that she is really not on much in the way of sedat ion. She does attend and tracks you whenever you walk into the room. That being said, she does not even make any attempts in following commands. She grimaces with noxious stimuli at all 4 extremities and will actually withdraw from discomfort, but remains extraordinarily weak. Otherwise, there has been no interval change to her condition. PHYSICAL EXAMINATION: VITAL SIGNS: T-max 100.3, currently 99.8. Pulse 82, blood pressure 137/63, respirations 34, saturat ion 93% on 30% FiO2 and PEEP of 5. GENERAL: The patient is awake and alert. She is extraordinarily weak. HEAD: Normocephalic, atraumatic. Sclerae are white, conjunctivae pink. Oral mucosa is moist withou t lesions. LUNGS: Decent air entry. There is no prolonged expiratory phase, wheezing, rhonchi or crackles. HEART: Normal rate, regular. ABDOMEN: Soft, nontender, and nondistended. Bowel sounds are positive. MUSCULOSKELETAL: No cyanosis or clubbing. No pitting in the bilateral lower extremities. NEUROLOGIC: Grossly nonfocal. She does demonstrate a diffuse weakness throughout. LABORATORY DATA: WBC 8.9, hemoglobin 10.4, platelets 82,000 and improving, band count is down trendi ng to 2% and lymphocyte count is stable. Sodium 150 and gently down trending, potassium 3.7, creatin ine 2.84 stable, BUN 75. Basic metabolic profile is otherwise unremarkable. Respiratory cultures ku ve no growth at 48 hours. Influenza A is positive and B is negative. Blood cultures x2 are unremark able. ASSESSMENT: 1. Acute hypoxic respiratory failure. 2. Acute kidney injury on chronic kidney disease 2. 3. Acute on chronic diastolic heart failure. 4. Community-acquired pneumonia secondary to influenza A. 5. Septic shock, resolved. PLAN: We will continue to gently diurese the patient down to euvolemia. I will back off on a freque ncy to once daily. We will continue free water replacement and hopefully her sodium will start to im prove. If her mentation does not improve, we may need to consider imaging of the brain. She remains extraordinarily weak and if her strength does not improve over the next 3-4 days, she will likely re quire tracheostomy over short period of time. CRITICAL CARE TIME: 30 minutes.
[2017-02-15] MEDS: Insulin Detemir 100 UNITS/ML 20 UNITS in Pre-Filled Syringe 1 EACH SC SCH (21:30)
[2017-02-15] MEDS: Oseltamivir 6 MG/ML ORAL SUSP PO SCH (21:59)
--- NOTE | 2017-02-15 23:37 | PRG ---
DATE OF SERVICE: 02/16/2016 SUBJECTIVE: The patient was seen and examined in ICU, remains intubated and not very responsive. OBJECTIVE: GENERAL: This is an obese female seen in ICU. VITAL SIGNS: Temperature 98.9, pulse 76, respiratory rate 18, blood pressure 132/64. HEENT: Intubated. CARDIOVASCULAR: S1, S2 heard. RESPIRATORY: Clear. ABDOMEN: Soft, obese. MUSCULOSKELETAL: 1+ edema. DERMATOLOGIC: No skin rash. NEUROLOGIC: Intubated. LABORATORY DATA: Potassium is 3.7, sodium is 170, BUN is 75, creatinine is 2.8. ASSESSMENT AND PLAN: 1. Acute kidney injury. Renal function is much better; no acute need for dialysis. 2. Hypernatremia. 3. Hyperchloremia. 4. Anemia. 5. Acute hypoxic respiratory failure. 6. Hypokalemia, replaced. 7. Recommend free water. Avoid nephrotoxins. We will follow.
[2017-02-16] MEDS: Propofol 1,000 MG/100 ML VIAL IV PRN ×8 (00:37→20:31)
[2017-02-16 05:24] LABS: Anion Gap 18 mmol/L (10-20); BUN (Urea Nitrogen) 84 mg/dL (9.8-20.1); Calc. Creatinine Clearance 35 mL/min (70-130); Calcium 8.2 mg/dL (7.8-10.44); Carbon Dioxide 25 mmol/L (23-31); Chloride 107 mmol/L (98-107); Estimated GFR-MDRD 15; Glucose 136 mg/dL (80-115); Magnesium 2.1 mg/dL (1.6-2.6); Potassium 3.9 mmol/L (3.5-5.1); Sodium 146 mmol/L (136-145)
[2017-02-16] MEDS: Insulin Regular 300 UNITS/3 ML VIAL SC PRN ×3 (05:40→20:31)
[2017-02-16] MEDS: Furosemide 40 MG/4 ML VIAL SLOW IVP SCH (05:41)
[2017-02-16 05:43] LABS: Band 10 % (5-11); Eosinophils 2 % (0-10); Hemoglobin 9.4 g/dL (12.0-16.0); Large Platelets SLIGHT; Lymphocytes 14 % (21-51); MDiff Complete? YES; Mean Corpuscular HGB CONC 32.3 g/dL (32.0-36.0); Mean Corpuscular Volume 83.6 fl (81.0-99.0); Mean Platelet Volume 10.2 fL (7.4-10.4); Monocytes 8 % (0-10); Myelocyte 1 % (0-0); Neutrophil 64 % (42-75); Nucleated RBC 1 % (0); Platelet Count 121 thou/uL (130-400); Reactive Lymphocytes 1 % (0-10); Red Blood Cell (RBC) Count 3.47 mill/uL (4.20-5.40); White Blood Cell (WBC) Count 8.4 thou/uL (4.8-10.8)
[2017-02-16] MEDS: Carvedilol 6.25 MG TAB PO SCH ×2 (08:21→16:32)
[2017-02-16] MEDS: Amlodipine 10 MG TAB PO SCH (08:23)
[2017-02-16] MEDS: Famotidine 20 MG TAB PER TUBE SCH (08:24)
[2017-02-16] MEDS: Oseltamivir 6 MG/ML ORAL SUSP PO SCH ×2 (08:26→20:27)
--- NOTE | 2017-02-16 08:52 | RAD ---
PORTABLE SEMI UPRIGHT FRONTAL CHEST RADIOGRAPH: Date: 02-16-17 Comparison: 02-13-17 History: Intubated patient, influenza. FINDINGS: Endotracheal tube and nasogastric tube in stable position. Patient body habitus as well as patient po sitioning limits detailed assessment. The patient is rotated to the left. There is persistent perihilar and bibasilar nonspecific airspace disease. Leads overlie the chest, li miting assessment. Probable right sided vascular catheter in stable position, not well assessed on th is examination secondary to technical limitations. IMPRESSION: Grossly unchanged technically limited examination of the chest. POS: [facility]
--- NOTE | 2017-02-16 09:25 | PRG ---
DATE OF SERVICE: 02/16/2017 SUBJECTIVE: The patient is seen and examined at bedside. She is in ICU, C7 room. She is intubated. She is a mildly sedated, but she tries to follow my commands when she is asked to. OBJECTIVE: VITAL SIGNS: Blood pressure is 125/60, pulse is 71, respiratory rate is 29, pulse oximetry is 95% on FiO2 of 50%. She is intubated orally. Her FiO2 is 50%, frequency 21, PEEP is 10 and pressure suppo rt is 19. HEENT: Head is atraumatic, normocephalic. Her pupils are responding to light properly. LUNGS: Breath sounds diminished at both bases. No wheezing. HEART: S1, S2 distant, no S3, no S4. ABDOMEN: Soft, nondistended, obese, bowel sounds are present. No organomegaly. EXTREMITIES: No clubbing, cyanosis, mild edema on lower extremities 1+. NEUROLOGIC: She is on a small dose of propofol, but she tries to follow commands. She falls shorts very quickly. She withdraws her 4 extremities to the painful stimuli. LABORATORY DATA: Showed white count of 8.4, hemoglobin 9.4, hematocrit of 29.0, platelet count is 12 1,000. Sodium of 146, potassium 3.9, chloride 107, CO2 25, BUN 84, creatinine 3.63, glycemia is rang ing from 143 to 208. The rest of chemistry within normal limits. Her input is 3803, output is 1413 and balance is 2390 mL. Microbiology; nothing new. IMPRESSION: 1. Acute respiratory failure, hypoxic. 2. Septic shock, resolved. 3. Community-acquired pneumonia secondary to influenza A. 4. Acute on chronic diastolic heart failure. 5. Acute kidney injury on chronic kidney disease stage 3. PLAN: The patient is still on 1 dose of IV Lasix. It looks like she does not make much urine withou t supporting her kidneys with Lasix. Her mentation is still off. She tries to follow commands, but she falls short and I will continue her on mechanical ventilation and management per Critical Care, Flor De Oliveira. I will discuss the case with him regarding possible CT of the brain without contrast sin ce she is not following like she should at this point, since she is not on much of sedation. Her hyp ernatremia and hyperchloremia is improving, so would continue current regimen which is working. Her antibiotics were stopped yesterday. She will continue on her amlodipine, carvedilol, and insulin. S he is getting 20 units of Levemir and this seems to be controlling her glycemia below 200. She is go ing to continue SCDs for deep venous thrombosis prophylaxis.
--- NOTE | 2017-02-16 18:17 | PRG ---
DATE OF SERVICE: 02/16/2017 SERVICE: Pulmonary Medicine. INTERVAL HISTORY: The patient is doing okay from a respiratory standpoint. She is breathing very co mfortably on the ventilator. Her oxygen requirements are stable. They are not improving drastically , but nothing is getting worse at this point. There has been no interval change to her condition. PHYSICAL EXAMINATION: VITAL SIGNS: Afebrile with a T-max of 100.6, pulse 64, blood pressure 104/48, respirations 25, satur ation 93% on 40% FiO2 and a PEEP of 10. GENERAL: The patient is intubated and sedated. HEENT: Normocephalic, atraumatic. Sclerae are white. Conjunctivae pink. Oral and nasal mucosa is moist without lesions. LUNGS: Decent air entry. Wheezing is present. There are extensive crackles throughout bilateral mehdi ngs. No rhonchi are present. HEART: Normal rate, regular. ABDOMEN: Soft, nontender, nondistended. Bowel sounds are positive. MUSCULOSKELETAL: No cyanosis or clubbing. There is trace 1+ pitting in the bilateral lower extremit ies. GENITOURINARY: Ramos catheter in place. NEUROLOGIC: Grossly nonfocal. LABORATORY DATA: WBC 8.4, hemoglobin 9.4, platelets 121,000. Creatinine 3.63 and up trending, BUN 8 4. Basic metabolic profile is otherwise unremarkable. Sodium 146. TSH is normal. Respiratory cult ure is negative today. Influenza A is positive, blood cultures x2 are unremarkable. IMAGING: Chest x-ray demonstrates soft tissue attenuation. It is otherwise difficult to interpret. ASSESSMENT: 1. Acute hypoxic respiratory failure. 2. Acute kidney injury on chronic kidney disease II. 3. Acute on chronic diastolic heart failure, resolved to baseline. 4. Community-acquired pneumonia secondary to influenza A. 5. Septic shock, resolved. PLAN: We will continue to try to keep the patient roughly even as far as volume status is concerned. Free water replacement will be continued, but once her sodium returns to normal range, we will be a ble to back off on this as well. The patient is extraordinarily weak and deconditioned. My suspicio n is that even under best of circumstances if her lung injury starts to resolve over the next 2-3 day s, she will still be too weak to tolerate extubation. I have talked to family about addressing wheth er or not she would want to transition over to comfort care only or be aggressive and pursue tracheos abby. The patient at baseline was extraordinarily weak and essentially could not get out of the hous e because of her weight. At that baseline, she would not be able to participate with physical therap y. I have talked with them that in order for her to get stronger from her current state, she is marissa g to need to work extraordinarily hard and participate in a meaningful way with physical therapy. Th ey are going to debate on whether or not we should be aggressive at this point. Critical care time: 30 minutes.
[2017-02-16] MEDS: Insulin Detemir 100 UNITS/ML 20 UNITS in Pre-Filled Syringe 1 EACH SC SCH (20:27)
[2017-02-17] MEDS: Furosemide 40 MG/4 ML VIAL SLOW IVP SCH (05:27)
[2017-02-17] MEDS: Propofol 1,000 MG/100 ML VIAL IV PRN ×7 (05:31→23:52)
--- NOTE | 2017-02-17 05:51 | PRG ---
DATE OF SERVICE: 02/16/2017 SUBJECTIVE: The patient was seen and examined at bedside and was seen in ICU. She remains intubated and not very responsive. PHYSICAL EXAMINATION: VITAL SIGNS: Temperature 98.5, pulse 60, respiratory 20, blood pressure 104/52. HEENT: Intubated. CARDIOVASCULAR: S1, S2 heard. Rate and rhythm regular. RESPIRATORY: Clear. GASTROINTESTINAL: Abdomen is soft. MUSCULOSKELETAL: 1+ edema. DERMATOLOGIC: No skin rash. NEUROLOGIC: Intubated and not responding. LABORATORY DATA: Potassium is 3.9, BUN is 84, creatinine is 3.6. IMAGING: Chest x-ray with bilateral infiltrates. ASSESSMENT AND PLAN: 1. Acute kidney injury. Renal function with slight worsening today, creatinine bumped up most likel y from diuretics. Case discussed with Dr. De Oliveira, he is going to adjust the Lasix dose. 2. Hypernatremia. Continue free water. 3. Hyperchloremia. 4. Anemia. 5. Acute respiratory failure. 6. Hypokalemia. Monitor renal function closely. We will work with Dr. De Oliveira to adjust diuretic dose as tolerated.
[2017-02-17 06:15] LABS: Anion Gap 20 mmol/L (10-20); BUN (Urea Nitrogen) 95 mg/dL (9.8-20.1); Calc. Creatinine Clearance 25 mL/min (70-130); Calcium 8.4 mg/dL (7.8-10.44); Carbon Dioxide 23 mmol/L (23-31); Chloride 102 mmol/L (98-107); Estimated GFR-MDRD 11; Glucose 113 mg/dL (80-115); Potassium 4.3 mmol/L (3.5-5.1); Sodium 141 mmol/L (136-145)
[2017-02-17 06:46] LABS: Band 12 % (5-11); Eosinophils 6 % (0-10); Lymphocytes 18 % (21-51); MDiff Complete? YES; Mean Corpuscular Hemoglobin 27.3 pg (27.0-31.0); Mean Corpuscular Volume 82.6 fl (81.0-99.0); Mean Platelet Volume 11.1 fL (7.4-10.4); Monocytes 13 % (0-10); Neutrophil 51 % (42-75); Nucleated RBC 1 % (0); Platelet Count 168 thou/uL (130-400); RBC Distribution Width 16.9 % (11.5-14.5); White Blood Cell (WBC) Count 8.8 thou/uL (4.8-10.8)
[2017-02-17] MEDS: Carvedilol 6.25 MG TAB PO SCH ×2 (08:23→16:45)
[2017-02-17] MEDS: Famotidine 20 MG TAB PER TUBE SCH (08:31)
[2017-02-17] MEDS: Amlodipine 10 MG TAB PO SCH (08:31)
[2017-02-17] MEDS: Oseltamivir 6 MG/ML ORAL SUSP PO SCH ×2 (08:31→22:19)
--- NOTE | 2017-02-17 09:32 | PRG ---
DATE OF SERVICE: 02/17/2017 SUBJECTIVE: This is a 66-year-old female being seen for acute kidney injury. The patient is intubat ed and is not making any urine. PHYSICAL EXAMINATION: GENERAL: Patient is resting. VITAL SIGNS: Afebrile, pulse 64, breathing at 16, blood pressure 139/68. OBJECTIVE: See above. Awake, alert, in no acute distress. GENERAL APPEARANCE AND MENTAL STATUS: Fair. HEAD/NECK: Normocephalic. Atraumatic. EYES: EOMI. No deformity. EARS: Clear. No ulcers. NOSE: Intact. No lesions. MOUTH: Clear. No discharge. THROAT: Clear. No exudate. LUNGS: Clear. No crackles. CARDIAC: S1, S2. No rub. ABDOMEN: Benign. BS+. GENITALIA/RECTUM: Ramos absent. BACK/EXTREMITIES: Edema 0+ Ulcer- NEUROLOGICAL: The patient is resting. SKIN: Rash- Bruise- LYMPHATICS: Edema- Ulcer- LABORATORY: Hemoglobin 9, creatinine 4.9, BUN 95. ASSESSMENT AND PLAN: 1. Stage 5 chronic kidney disease with uremia. We will plan hemodialysis. The patient also has hyp oxia and difficult to ventilate. 2. Anemia, stable. 3. Medications based on glomerular filtration rate are appropriate. Consultants will be obtained. 4. Congestive heart failure. Overall, prognosis is extremely poor.
--- NOTE | 2017-02-17 10:40 | PRG ---
DATE OF SERVICE: 02/17/2017 SERVICE: Pulmonary Medicine. INTERVAL HISTORY: The patient is doing fine from a respiratory standpoint. Things are roughly stabl e. That being said, she is not making much urine. We are giving her a lot of water and it is not co bakari out of her. Her acute kidney injury is preventing us from controlling her volume status. She i s being considered for dialysis today. I spoke with the family about what they wanted to do moving f orward and they are suggesting that a tracheostomy is what would be most appropriate. The son is in penitentiary and apparently has some cognitive impairment and should not have the ability to make decisions b ased on what the other family is telling me. As such, they are working on establishing a medical pow er of county attorney for the person that has been in her life most. PHYSICAL EXAMINATION: VITAL SIGNS: Afebrile, pulse 67, blood pressure 143/74, respirations 24, saturation 96% on 40% FiO2 and a PEEP of 10. GENERAL: Patient is intubated and sedated. HEENT: Normocephalic, atraumatic. Sclerae are white, conjunctivae pink. Oral and nasal mucosa is m oist without lesions. LUNGS: Decent air entry, crackles are present. No prolonged expiratory phase or wheezing is appreci ated. HEART: Normal rate and regular. ABDOMEN: Soft, nontender, nondistended. Bowel sounds are positive. MUSCULOSKELETAL: No cyanosis or clubbing. There is 1-2+ throughout. GENITOURINARY: Ramos catheter in place. NEUROLOGIC: Grossly nonfocal. LABORATORY DATA: WBC 8.8, hemoglobin 9.0, platelets 168,000. Band count is 12% presently. Creatini ne 4.97 and continues to up trend. Basic metabolic profile is otherwise unremarkable. Respiratory c ulture is negative. Influenza A is positive, but B is negative. Blood cultures x2 are unremarkable. ASSESSMENT: 1. Acute hypoxic respiratory failure. 2. Acute kidney injury on chronic kidney disease 2. 3. Acute on chronic diastolic heart failure. 4. Community-acquired pneumonia secondary to influenza. 5. Septic shock, resolved. PLAN: The patient, I believe is going to undergo dialysis. We will also put a surgical consultation and proceed with tracheostomy. Will have to remove the OG tube and place a small bore feeding tube through the nose as I am doubtful that it would be safe to do a PEG tube. If we can however, that wo uld be preferable. Pulmonary or Critical Care will continue to follow while the patient remains in t his location. CRITICAL CARE TIME: 30 minutes.
[2017-02-17] MEDS ORDERED: Heparin 1,000 UNITS/ML VIAL ONE (11:11)
[2017-02-17 11:56] LABS: HBSAB Concentration 0.03 mIU/mL; HBSAg Index 0.14 S/CO (0-0.99); Hep B Core Total Ab Non-Reactive (NonReactive); Hep B Core Total Index 0.08 S/CO (0-0.79); Hep B Surf AB Non-Reactive (NonReactive); Hep B Surf Ag Non-Reactive S/CO (NonReactive); Hep C IgG Ab Non-Reactive (NonReactive)
--- NOTE | 2017-02-17 13:09 | CON ---
DATE OF CONSULTATION: 02/17/2017 HISTORY: A 66-year-old female, morbidly obese, nonambulatory at home, bedridden with developmental m ental problems cared for by family with comorbidities, hypertension, diabetes, and morbid obesity, 5 foot 6, 313 pounds over 50 BMI. The patient was admitted with respiratory failure. I have been aske d to see her regarding placement of a temporary dialysis access and also for tracheostomy and a PEG t ube. The patient apparently has had no prior surgeries. The patient is a full code. The family che s not want to withdraw care at this time despite communication by Dr. De Oliveria that her prognosis is v jeremie poor. HOME MEDICATIONS: Lyrica 75 mg b.i.d., aspirin 81 mg a day, hydrocodone t.i.d., Lasix 20 daily, cycl obenzaprine 5 mg t.i.d., carvedilol 6.25 mg b.i.d., Norvasc 10 mg daily, trazodone 50 mg at bedtime, pravastatin 40 mg p.m., losartan, potassium 25 mg daily, Tradjenta 5 mg p.o. daily, Esomeprazole -Nex ium 40 mg daily, cholecalciferol 500 mg daily. In the hospital she is also on a Diprivan drip. She has been followed Dr. Rubi. History is obtained from the records as she is sedated on the venti lator and noncommunicative. She has been seen by Dr. Santillan from Nephrology. PAST MEDICAL HISTORY: Morbid obesity, metabolic syndrome, nonambulatory, diabetes mellitus type 2, G ERD, hypertension, anxiety, bipolar depression, remote tobacco abuse. PAST SURGICAL HISTORY: in the past. REVIEW OF SYSTEMS: Not possible, on the ventilator. PHYSICAL EXAMINATION: VITAL SIGNS: Height 5 foot 6, 313 pounds, 121/60, 72 heart rate, respiratory rate 32. GENERAL: The patient is intubated, not communicative. Orogastric tube present. LUNGS: Clear to auscultation. CARDIAC: Regular rate and rhythm without murmur or gallop. Right subclavian vein central line prese nt. ABDOMEN: Obese, soft, large pannus. EXTREMITIES: Unremarkable. LABORATORY: White count 8, hemoglobin 9, platelet count 168,000, 141, 4.3, 95 BUN, creatinine 4.97, GFR 11. The patient had normal GFR in 2014, has been deteriorated since 03/2016 ASSESSMENT AND PLAN: 1. Chronic kidney disease, superimposed acute renal failure. Plan placement of hemodialysis cathete r right groin. Family has consented to initiate dialysis. 2. Respiratory failure, metabolic syndrome, ventilator dependent, in need of tracheostomy and PEG tu be. We will plan next week once n.p.o. status has been made. 3. Hypertension. 4. Diabetes mellitus. 5. Depression. 6. Bipolar illness. 7. History of tobacco abuse. 8. Developmental delay. 9. Nonambulatory bedridden state. 10. Overall, prognosis is very poor and the patient's family wish to proceed with care despite this.
--- NOTE | 2017-02-17 14:05 | OP ---
PREOPERATIVE DIAGNOSES: Metabolic syndrome, hypertension, diabetes, nonambulatory state, respiratory failure ventilatory dependent, chronic kidney disease with acute renal failure superimposed in need of dialysis access. POSTOPERATIVE DIAGNOSES: Metabolic syndrome, hypertension, diabetes, nonambulatory state, respirator y failure ventilatory dependent, chronic kidney disease with acute renal failure superimposed in need of dialysis access. PROCEDURE: Placement of right femoral vein Trialysis catheter. ANESTHESIA: None (on Diprivan, on the ventilator). Of note, assistance from nurse required to retra ct the pannus cephalad. PROCEDURE: At the patient's bedside with nursing assistance to retract pannus cephalad. Right groin was prepared with ChloraPrep, draped in routine fashion. Trocar catheter cannulated the femoral vei n with difficulty threading the J-wire, removing the trocar catheter, enlarging the skin excised by p lacing a smaller and larger dilator over the J-wire into the femoral vein, removing and distal port o f the Trialysis catheter placed over the J-wire into femoral vein and an catheter secured with 2 inte rrupted sutures of 3-0 nylon. Each port aspirated blood and flushed with heparinized saline solution . Patient tolerated the procedure well without complications. Sterile dressing applied.
--- NOTE | 2017-02-17 14:08 | ULT ---
EXAM: MAPPING FOR DIALYSIS ACCESS: HISTORY: End stage renal disease. COMPARISON: None. TECHNIQUE: Solomon scale, color flow, Doppler imaging, and spectral waveform analysis is performed in the left and right upper extremity venous system. FINDINGS: RIGHT UPPER EXTREMITY: Brachial artery 4.1 mm Radial artery 2.5 mm Ulnar artery 2.5 mm Cephalic Vein: Proximal humerus 3.6 mm Mid humerus 3.0 mm Distal humerus 2.0 mm Antecubital fossa 3.0 mm Proximal forearm 2.3 mm Mid forearm 2.3 mm Distal forearm 3.0 mm Basilic Vein: Proximal humerus 6.4 mm Mid humerus 6.8 mm Distal humerus 5.9 mm Antecubital fossa 5.1 mm The basilic vein is clotted throughout the entire forearm. LEFT UPPER EXTREMITY: Brachial artery 4.9 mm Radial artery 2.5 mm Ulnar artery 3.0 mm Cephalic Vein: Proximal humerus not documented Mid humerus 3.3 mm Distal humerus clot Antecubital fossa clot Proximal forearm 2.7mm Mid forearm 2.5 mm Distal forearm 2.4 mm Basilic Vein: Proximal humerus not documented Mid humerus 6.7 mm Distal humerus 5.4 mm Antecubital fossa 5.0 mm Proximal forearm 2.8 mm Mid forearm 2.6 mm Distal forearm 2.3 mm IMPRESSION: Venous mapping as above. POS: [facility]
--- NOTE | 2017-02-17 17:53 | PRG ---
DATE OF SERVICE: 02/17/2017 SUBJECTIVE: The patient is seen and examined at the bedside. She is intubated orally and sedated wi th propofol, although when I started examining her, she opens her eyes spontaneously. OBJECTIVE: VITAL SIGNS: Blood pressure is 103/54, pulse is 61, pulse oximetry is 94%, and respiratory rate is 3 0. She is on SIMV. Pressure support is 19, PEEP of 10, FiO2 60%. HEENT: Her pupils responded to light properly. LUNGS: Breath sounds somewhat diminished at both bases. HEART: S1, S2 normal. No S3, no S4. ABDOMEN: Soft, obese. EXTREMITIES: No clubbing, cyanosis. There is 1+ peripheral edema similar bilaterally. NEUROLOGIC: Postponed since she is sedated. LABORATORY DATA: White count of 8.8, hemoglobin 9, hematocrit 27.2, platelet count is 168,000. Her electrolytes were within normal limits. BUN of 95, creatinine 4.97. Glycemia is ranging from 106 to 156. Hepatitis panel came back nonreactive on hepatitis B and C antigen and antibodies. Ultrasound for a dialysis catheter placement was done and the catheter was placed in the right groin by Dr. Holger garcia today. IMPRESSION: 1. Acute hypoxic respiratory failure. 2. Pneumonia secondary to influenza. 3. Septic shock, resolved. 4. Uremia and chronic renal failure on the top of acute kidney injury stage IV. PLAN: Dr. De Oliveira had discussion with the family members and they all agreed on PEG placement and tr acheostomy placement, which will be done on Monday. For now, we will continue her current regimen. She had dialysis done and 5069 mL were removed. It is felt that her lack of response could be relate d to her uremia and mental function is affected by that. She is getting feeding through the tube. S he will continue on her amlodipine, carvedilol, H2 hai for PUD prophylaxis, furosemide 40 mg slow IV push daily, Tamiflu 30 mg twice a day.
[2017-02-17] MEDS: Insulin Detemir 100 UNITS/ML 20 UNITS in Pre-Filled Syringe 1 EACH SC SCH (22:20)
[2017-02-18 04:58] LABS: Anion Gap 19 mmol/L (10-20); BUN (Urea Nitrogen) 80 mg/dL (9.8-20.1); Calc. Creatinine Clearance 24 mL/min (70-130); Calcium 8.4 mg/dL (7.8-10.44); Carbon Dioxide 23 mmol/L (23-31); Chloride 99 mmol/L (98-107); Estimated GFR-MDRD 10; Glucose 104 mg/dL (80-115); Potassium 4.4 mmol/L (3.5-5.1); Sodium 137 mmol/L (136-145)
[2017-02-18 05:21] LABS: Band 10 % (5-11); Eosinophils 4 % (0-10); Hemoglobin 8.3 g/dL (12.0-16.0); Lymphocytes 16 % (21-51); MDiff Complete? YES; Mean Corpuscular HGB CONC 33.4 g/dL (32.0-36.0); Mean Corpuscular Hemoglobin 27.4 pg (27.0-31.0); Metamyelocyte 5 % (0-0); Monocytes 9 % (0-10); Myelocyte 1 % (0-0); Neutrophil 55 % (42-75); Platelet Count 175 thou/uL (130-400); RBC Distribution Width 16.9 % (11.5-14.5); Red Blood Cell (RBC) Count 3.05 mill/uL (4.20-5.40); White Blood Cell (WBC) Count 8.2 thou/uL (4.8-10.8)
[2017-02-18] MEDS: Furosemide 40 MG/4 ML VIAL SLOW IVP SCH (06:17)
[2017-02-18] MEDS: Carvedilol 6.25 MG TAB PO SCH ×2 (08:20→16:39)
[2017-02-18] MEDS: Amlodipine 5 MG TAB PO SCH (08:41)
[2017-02-18] MEDS: Oseltamivir 6 MG/ML ORAL SUSP PO SCH ×2 (08:41→21:15)
[2017-02-18] MEDS: Famotidine 20 MG TAB PER TUBE SCH (08:41)
--- NOTE | 2017-02-18 13:52 | PRG ---
DATE OF SERVICE: 02/18/2017 SUBJECTIVE: A 66-year-old female being seen for acute kidney injury. The patient remained resting o n examination. PHYSICAL EXAMINATION: GENERAL: Patient is awake, alert. VITAL SIGNS: Afebrile, pulse 70, breathing at 16, blood pressure 125/57. HEAD/NECK: Normocephalic. Atraumatic. EYES: EOMI. No deformity. EARS: Clear. No ulcers. NOSE: Intact. No lesions. MOUTH: Clear. No discharge. THROAT: Clear. No exudate. LUNGS: Clear. No crackles. CARDIAC: S1, S2. No rub. ABDOMEN: Benign. BS+. GENITALIA/RECTUM: Ramos absent. BACK/EXTREMITIES: Edema 0+ Ulcer- NEUROLOGICAL: The patient is resting. SKIN: Rash- Bruise- LYMPHATICS: Edema- Ulcer- GENITOURINARY: Ramos shows minimal urine. LABORATORY DATA: Show hemoglobin 8.3, potassium 4.4, and BUN 80. ASSESSMENT AND RECOMMENDATIONS: 1. Stage 6 chronic kidney disease. Plan hemodialysis. 2. Acute kidney injury, multifactorial. 3. Hyperkalemia, stable. 4. Metabolic acidosis stable. 5. Uremia improving. We will plan dialysis today and give rest tomorrow.
--- NOTE | 2017-02-18 15:10 | PRG ---
DATE OF SERVICE: 02/18/2017 SUBJECTIVE: The patient is seen and examined at bedside. She is in the CCU bed #07. Her sedation i s turned off and she is a little bit more interactive, but is still far from a regular response. OBJECTIVE: VITAL SIGNS: Blood pressure is 123/66, pulse is 72, respiratory rate is 23, pulse ox is 93%. She is on a ventilator. HEENT: Pupils seem to be responding to light properly. She is orally intubated. LUNGS: She has rales on both bases. HEART: S1, S2 normal, no S3, no S4. ABDOMEN: Obese, nontender. EXTREMITIES: No clubbing, cyanosis or edema. NEUROLOGIC: She does not seem to be follow my commands. She follows me to some extent with her eyes , but that is all response we are getting. LABORATORY DATA: Showed a white count of 8.2, hemoglobin 8.3, hematocrit 25.0, platelet count is 175 ,000. Normal electrolytes, BUN of 80, creatinine 5.02, glycemia is ranging from 106-116. IMPRESSION: 1. Acute hypoxemic respiratory failure. The patient is on a ventilator. We are going to continue t hat until Monday and she will have a tracheostomy and PEG placement. 2. Pneumonia secondary to influenza. 3. Septic shock, resolved. 4. Uremia and chronic renal failure on the top of her acute kidney injury, stage 4. 5. Morbid obesity. PLAN: At this point is to continue current regimen, PEG and trach, but critical care does not think that it would be safe to do a PEG tube, so the plan is to place a small bore feeding tube through the nose. We will continue on amlodipine, carvedilol, and furosemide IV push once a day. Also, she pj l continue on her 20 units of Levemir daily plus Humulin R aggressive sliding scale. She will contin ue on Tamiflu and she will continue on peptic ulcer disease prophylaxis.
--- NOTE | 2017-02-18 16:24 | PRG ---
DATE OF SERVICE: 02/18/2017 SERVICE: Pulmonary Medicine. INTERVAL HISTORY: The patient got started on dialysis yesterday. She is intolerant too well yesterd ay because her blood pressures dropped and we only got 500 mL of water off of her. This morning, she did much better off of the propofol. We were able to pull 2 liters off of her. This did not have a ny significant impact on her oxygen requirements. Otherwise, there has been no interval change to he r condition. PHYSICAL EXAMINATION: VITAL SIGNS: Afebrile, pulse 77, blood pressure is 141/65, respirations 30, saturation 93% on 60% Fi O2 and PEEP of 10. GENERAL: Patient is intubated and sedated. HEENT: Normocephalic, atraumatic. Sclerae are white, conjunctivae pink. Oral and nasal mucosa is m oist without lesions. LUNGS: Decreased air entry. Crackles are present. No rhonchi or prolonged expiratory phase appreci ated. HEART: Normal rate, regular. ABDOMEN: Soft, nontender, nondistended. Bowel sounds are positive. MUSCULOSKELETAL: No cyanosis or clubbing. There is diffuse pitting, which is roughly 1+. GENITOURINARY: Ramos catheter in place. NEUROLOGIC: Grossly nonfocal. LABORATORY DATA: WBC 8.2, hemoglobin 8.3, platelets 175,000 and actually improving. Band count is s table at 10% with 50% neutrophil count. Creatinine 5.02 and roughly stable, BUN is gently down trend ing to 80. Basic metabolic profile is otherwise unremarkable. Influenza A is positive. Blood cultu res x2 and respiratory culture are all negative to date. ASSESSMENT: 1. Acute hypoxic respiratory failure. 2. Acute kidney injury on chronic kidney disease 2. 3. Acute on chronic diastolic heart failure. 4. Community-acquired pneumonia secondary to influenza. 5. Septic shock, resolved. PLAN: I will continue to dialyze the patient much as she can tolerate. She will remain on mechanica l ventilation. We are going to hold all sedation products if possible. Her mentation is improving s lightly. She is much more awake and attentive. She does not follow any commands yet, but she does w ithdraw from noxious stimuli in all 4 extremities. Supportive measures will otherwise be continued. Laboratories will be repeated tomorrow morning. CRITICAL CARE TIME: 30 minutes.
[2017-02-18] MEDS: Insulin Detemir 100 UNITS/ML 20 UNITS in Pre-Filled Syringe 1 EACH SC SCH (21:15)
[2017-02-19 04:43] LABS: Actual Bicarbonate (HCO3a) 23.8 mEq/L (22-26); Base Excess (BEa) -1.1 mEq/L (0 (+/-) 2.5); Calcium, Ionized 1.1 mmol/L (1.12-1.30); Hematocrit-ABG 30.2 % (36.0-47.0); Hemoglobin (Hb) 8.5 g/dL (12.0-16.0); O2 Tension (PaO2) 69.3 mmHg (80.0-100.0); pH, Arterial 7.38 (7.35-7.45)
[2017-02-19 05:07] LABS: Puncture Site RRAD
[2017-02-19 05:40] LABS: Anion Gap 19 mmol/L (10-20); BUN (Urea Nitrogen) 62 mg/dL (9.8-20.1); Calc. Creatinine Clearance 25 mL/min (70-130); Calcium 8.9 mg/dL (7.8-10.44); Carbon Dioxide 25 mmol/L (23-31); Chloride 97 mmol/L (98-107); Estimated GFR-MDRD 11; Glucose 158 mg/dL (80-115); Magnesium 2.2 mg/dL (1.6-2.6); Phosphorus 7.3 mg/dL (2.3-4.7); Potassium 4.8 mmol/L (3.5-5.1); Sodium 136 mmol/L (136-145)
[2017-02-19 06:01] LABS: Band 5 % (5-11); Eosinophils 6 % (0-10); Hemoglobin 8.6 g/dL (12.0-16.0); Lymphocytes 17 % (21-51); MDiff Complete? YES; Mean Corpuscular HGB CONC 31.2 g/dL (32.0-36.0); Mean Corpuscular Hemoglobin 26.2 pg (27.0-31.0); Mean Corpuscular Volume 83.8 fl (81.0-99.0); Mean Platelet Volume 10.2 fL (7.4-10.4); Metamyelocyte 2 % (0-0); Monocytes 7 % (0-10); Neutrophil 62 % (42-75); Platelet Count 185 thou/uL (130-400); RBC Distribution Width 17.2 % (11.5-14.5); Red Blood Cell (RBC) Count 3.27 mill/uL (4.20-5.40); White Blood Cell (WBC) Count 12.2 thou/uL (4.8-10.8)
[2017-02-19] MEDS ORDERED: Clopidogrel Bisulfate 75 MG TAB ONE (08:54)
[2017-02-19] MEDS: Amlodipine 5 MG TAB PO SCH (09:32)
[2017-02-19] MEDS: Carvedilol 6.25 MG TAB PO SCH ×2 (09:32→18:15)
[2017-02-19] MEDS: Famotidine 20 MG TAB PER TUBE SCH (09:32)
[2017-02-19] MEDS: Oseltamivir 6 MG/ML ORAL SUSP PO SCH ×2 (09:33→21:16)
[2017-02-19] MEDS: Insulin Regular 300 UNITS/3 ML VIAL SC PRN (10:16)
--- NOTE | 2017-02-19 10:27 | RAD ---
PORTABLE CHEST: HISTORY: Dyspnea. COMPARISON: 02/16/2017 FINDINGS: There are bilateral infiltrates, slightly more prominent in the left lung. Mild cardiomegaly. IMPRESSION: Bilateral lung infiltrates. POS: [facility]
[2017-02-19] MEDS ORDERED: Heparin 1,000 UNITS/ML VIAL ONE (11:11)
--- NOTE | 2017-02-19 15:20 | PRG ---
DATE OF SERVICE: 02/19/2017 SERVICE: Pulmonary Medicine. INTERVAL HISTORY: The patient is doing fine from a respiratory standpoint. She denies any current f fabiano, chills, nausea, vomiting. There were no overnight events. Her mentation seems to be improvin g ever so slightly. She is more interactive with her environment. She tolerated dialysis yesterday and today quite well. There were 3 liters off of her today. PHYSICAL EXAMINATION: VITAL SIGNS: Afebrile, pulse 85, blood pressure 107/55, respirations 38, saturation 93% on 70% FIO2 and a PEEP of 12. GENERAL: Patient is intubated and sedated. HEENT: Normocephalic, atraumatic. Sclerae are white, conjunctivae pink. Oral and nasal mucosa is m oist without lesions. LUNGS: Excellent air entry. There is no prolonged expiratory phase. Wheezing and crackles are both present. HEART: Normal rate, regular. ABDOMEN: Soft, nontender, nondistended. Bowel sounds are positive. MUSCULOSKELETAL: No cyanosis or clubbing. There is diffuse pitting, which is trace to 1+ at this ti me. GENITOURINARY: Ramos catheter in place. NEUROLOGIC: Grossly nonfocal. LABORATORY DATA: WBC 12.2, hemoglobin 8.6, platelets 185,000. This is finally rebounding. Creatini ne 4.8, BUN 62. Basic metabolic profile is otherwise unremarkable. Phosphorus is 7.3, magnesium 2.2 . Influenza is positive. IMAGING: Chest x-ray demonstrates bilateral lung infiltrates. Cardiomegaly is evident. Endotrachea l tube remains in good position. ASSESSMENT: 1. Acute hypoxic respiratory failure. 2. Massive volume overload. 3. Acute kidney injury on chronic kidney disease II. 4. Acute on chronic diastolic heart failure. 5. Community-acquired pneumonia secondary to influenza. 6. Septic shock, resolved. PLAN: We will continue to dialyze the patient, pull as much fluid off as she tolerates. I will get rid of our free water flushes as these are no longer necessary, because she is no longer hypernatremi c. We will continue to follow laboratories on a daily basis. Otherwise, supportive measures will be continued. In the next 24-48 hours, if she is not making significant headway, we may need to consid er her for tracheostomy placement. I have talked about this with the family and they are going to de liberate as the family determine whether or not this will be the most appropriate course of action mo ving forward.
--- NOTE | 2017-02-19 16:01 | PDOC.PN ---
- Subjective Encounter Start Date: 02/19/17 Encounter Start Time: 11:00 Pt seen for followup re; acute on chronic renal failure. Intubated, nonverbal, unable to obtain ROS. - Objective Resuscitation Status: Resuscitation Status FULL:Full Resuscitation MAR Reviewed: Yes Vital Signs & Weight: Vital Signs (12 hours) Pulse Resp BP 02/19/17 14:50 85 107/55 L 02/19/17 14:00 37 H 02/19/17 12:15 78 126/51 L 02/19/17 12:00 35 H 02/19/17 10:00 33 H 02/19/17 09:32 82 129/61 02/19/17 08:00 38 H 02/19/17 07:14 82 129/61 02/19/17 05:43 38 H 02/19/17 04:50 42 H 02/19/17 04:00 32 H Weight Admit Weight 306 lb Weight 315 lb 11.231 oz Most Recent Monitor Data Heart Rate from ECG 83 NIBP 110/63 NIBP BP-Mean 83 Respiration from ECG 38 SpO2 93 I&O: 02/18/17 02/19/17 02/20/17 06:59 06:59 06:59 Intake Total 4111 2431 Output Total 90 60 15 Balance 4021 2371 -15 Result Diagrams: 02/19/17 04:50 02/19/17 04:50 Additional Labs: Accuchecks 02/19/17 02/18/17 02/18/17 10:13 21:15 15:53 POC Glucose 200 H 111 H 87 EKG Reviewed by me: Yes (Tele: NSR) Phys Exam - Physical Examination Morbidly obese HEENT: sclera anicteric Respiratory: clear to auscultation bilateral Cardiovascular: RRR Gastrointestinal: soft Neurological: moves all 4 limbs Psychiatric: normal affect Skin: no rash Dx/Plan (1) Acute on chronic renal failure Code(s): N17.9 - ACUTE KIDNEY FAILURE, UNSPECIFIED; N18.9 - CHRONIC KIDNEY DISEASE, UNSPECIFIED Status: Acute (2) Pneumonia Code(s): J18.9 - PNEUMONIA, UNSPECIFIED ORGANISM Status: Acute (3) Influenza A Code(s): J10.1 - FLU DUE TO OTH IDENT INFLUENZA VIRUS W OTH RESP MANIFEST Status: Acute (4) Acute respiratory failure with hypoxia and hypercapnia Code(s): J96.01 - ACUTE RESPIRATORY FAILURE WITH HYPOXIA; J96.02 - ACUTE RESPIRATORY FAILURE WITH HYPERCAPNIA Status: Acute (5) Bipolar 1 disorder Code(s): F31.9 - BIPOLAR DISORDER, UNSPECIFIED Status: Chronic (6) DM (diabetes mellitus), type 2, uncontrolled Code(s): E11.65 - TYPE 2 DIABETES MELLITUS WITH HYPERGLYCEMIA Status: Chronic Qualifiers: Diabetes mellitus complication status: with kidney complications (7) HTN (hypertension) Code(s): I10 - ESSENTIAL (PRIMARY) HYPERTENSION Status: Chronic Qualifiers: Hypertension type: essential hypertension Qualified Code(s): I10 - Essential (primary) hypertension - Plan PT/OT, DVT proph w/SCDs * .Pt has been started on hemodialysis, further dialysis per nephrology service. * Family deciding re: tracheostomy. Continue Tamiflu. Continue accuchecks, insulin sliding scale. Review of Systems - Medications/Allergies Allergies/Adverse Reactions: Allergies Allergy/AdvReac Type Severity Reaction Status Date / Time Penicillins Allergy Mild Verified 09/13/12 23:25 Medications: Current Medications Acetaminophen (Tylenol) 650 mg NH Q4H PRN PRN Reason: Headache/Fever or Mild Pain Amlodipine Besylate (Norvasc) 5 mg PO DAILY [facility] Last Admin: 02/19/17 09:32 Dose: 5 mg Carvedilol (Coreg) 3.125 mg PO BID-[facility] Last Admin: 02/19/17 09:32 Dose: 3.125 mg Dextrose/Water (Dextrose 50%) 25 gm IVP PRN PRN PRN Reason: HYPOGLYCEMIA PROTOCOL Famotidine (Pepcid) 20 mg PER TUBE DAILY [facility] Last Admin: 02/19/17 09:32 Dose: 20 mg Glucagon (Glucagon) 1 mg IM PRN PRN PRN Reason: HYPOGLYCEMIA PROTOCOL Hydralazine HCl (Apresoline) 10 mg SLOW IVP Q6H PRN PRN Reason: SBP Greater Than 170 Last Admin: 02/11/17 13:15 Dose: 10 mg Dextrose/Water (D5w) 1,000 mls @ 0 mls/hr IV INF PRN; As Directed PRN Reason: HYPOGLYCEMIA PROTOCOL Sodium Chloride (1/2 Normal Saline) 1,000 mls @ 0 mls/hr IV .Q0M MARIEL PRN Reason: KVO Last Admin: 02/16/17 09:10 Dose: 1,000 mls Insulin Detemir 20 units/ (Miscellaneous Medication) 0.2 mls @ 0 mls/hr SC HS [facility] Last Admin: 02/18/17 21:15 Dose: Not Given Insulin Human Regular (Humulin R) 0 units SC .AGGRESSIVE SLIDING PRN; Protocol PRN Reason: AGGRESSIVE SLIDING SCALE Last Admin: 02/19/17 10:16 Dose: 3 unit Miscellaneous Medication (Pharmacy To Dose) 1 each IVPB PRN PRN PRN Reason: Pharmacy to dose Ondansetron HCl (Zofran Odt) 4 mg PO Q6H PRN PRN Reason: Nausea/Vomiting Ondansetron HCl (Zofran) 4 mg IVP Q6H PRN PRN Reason: Nausea/Vomiting Oseltamivir Phosphate (Tamiflu) 30 mg PO BID [facility] Last Admin: 02/19/17 09:33 Dose: 30 mg Sodium Chloride (Flush - Normal Saline) 10 ml IVF Q12HR [facility] Last Admin: 02/19/17 09:33 Dose: 10 ml Sodium Chloride (Flush - Normal Saline) 10 ml IVF PRN PRN PRN Reason: Saline Flush
--- NOTE | 2017-02-19 16:59 | PRG ---
DATE OF SERVICE: 02/19/2017 SUBJECTIVE: This is a 66-year-old female being seen for acute kidney injury. The patient remains ol iguric. The patient responds with eye contact, cannot verbalize due to intubation. OBJECTIVE: See above. GENERAL: On examination, patient is resting. VITAL SIGNS: Afebrile, pulse 78, breathing at 16, blood pressure 123/59. GENERAL APPEARANCE AND MENTAL STATUS: Fair. HEAD/NECK: Normocephalic. Atraumatic. EYES: EOMI. No deformity. EARS: Clear. No ulcers. NOSE: Intact. No lesions. MOUTH: Clear. No discharge. THROAT: Clear. No exudate. LUNGS: Clear. No crackles. CARDIAC: S1, S2. No rub. ABDOMEN: Benign. BS+. GENITALIA/RECTUM: Ramos absent. BACK/EXTREMITIES: Edema 0+, ulcer. NEUROLOGICAL: Alert and motor intact. SKIN: Rash - bruise. LYMPHATICS: Edema - ulcer. LABORATORY DATA: Labs show hemoglobin 8.6, BUN 16, creatinine 4.8. ASSESSMENT AND RECOMMENDATIONS: 1. Stage 6 chronic kidney disease. Plan hemodialysis ultrafiltration 2-3 kilos. 2. Anemia, stable. 3. Congestive heart failure. 4. Respiratory failure. Overall, prognosis is extremely poor.
[2017-02-19] MEDS: Insulin Detemir 100 UNITS/ML 20 UNITS in Pre-Filled Syringe 1 EACH SC SCH (21:15)
[2017-02-20 04:57] LABS: Anion Gap 19 mmol/L (10-20); BUN (Urea Nitrogen) 41 mg/dL (9.8-20.1); Calc. Creatinine Clearance 27 mL/min (70-130); Calcium 9.2 mg/dL (7.8-10.44); Carbon Dioxide 27 mmol/L (23-31); Chloride 97 mmol/L (98-107); Estimated GFR-MDRD 11; Glucose 120 mg/dL (80-115); Magnesium 2.2 mg/dL (1.6-2.6); Phosphorus 6.1 mg/dL (2.3-4.7); Potassium 4.5 mmol/L (3.5-5.1); Sodium 138 mmol/L (136-145)
[2017-02-20 05:21] LABS: Band 6 % (5-11); Eosinophils 7 % (0-10); Lymphocytes 9 % (21-51); MDiff Complete? YES; Mean Corpuscular HGB CONC 30.7 g/dL (32.0-36.0); Mean Corpuscular Hemoglobin 25.9 pg (27.0-31.0); Mean Corpuscular Volume 84.4 fl (81.0-99.0); Mean Platelet Volume 9.9 fL (7.4-10.4); Monocytes 12 % (0-10); Myelocyte 1 % (0-0); Neutrophil 65 % (42-75); Nucleated RBC 2 % (0); Platelet Count 194 thou/uL (130-400); RBC Distribution Width 17.1 % (11.5-14.5); Red Blood Cell (RBC) Count 3.08 mill/uL (4.20-5.40); White Blood Cell (WBC) Count 11.8 thou/uL (4.8-10.8)
--- NOTE | 2017-02-20 07:06 | PRG ---
DATE OF SERVICE: 02/20/2017 SUBJECTIVE: Ms. Porras is seen today on Monday morning. She has diffuse pulmonary infiltrates on yesterday's chest x-ray. She is on high levels of pressure support and PEEP has increased to 13. He r respiratory rate is 27 on the ventilator. Her blood pressure was low. The patient was scheduled f or tracheostomy and PEG tube and hemodialysis catheter today, but this will have to be postponed due to her pulmonary status. Family is not available to make decisions on her long-term care, although t chetany have given consents. We will await for her to stabilize prior to undergoing elective tracheostom y, hemodialysis catheter and PEG tube placement.
--- NOTE | 2017-02-20 07:52 | RAD ---
AP VIEW OF THE CHEST: INDICATION: History of intubation. COMPARISON: Prior exam dated 02/19/17 at 4:52 a.m. FINDINGS: The patient is rotated limiting the exam. ET tube tip is seen at the thoracic inlet. The right subc lavian central venous catheter projects over the region of the SVC. Gastric catheter only projects u p to the lower thoracic spinal level. Recommend advancement. There are perihilar opacities suspicio us for edema. There are tiny bilateral pleural effusions. No pneumothorax is grossly evident. IMPRESSION: 1. Limited exam. 2. Findings suspicious for congestive heart failure or volume overload. 3. Recommend advancement of the gastric catheter. POS: [facility]
[2017-02-20] MEDS ORDERED: Sodium Chloride 0.9% 1,000 ML IV SCH (08:30)
[2017-02-20] MEDS: Amlodipine 5 MG TAB PO SCH (09:00)
[2017-02-20] MEDS: Famotidine 20 MG TAB PER TUBE SCH (09:00)
[2017-02-20] MEDS: Carvedilol 6.25 MG TAB PO SCH ×2 (09:00→18:28)
[2017-02-20] MEDS ORDERED: Norepinephrine 8 MG in Sodium Chloride 0.9% 250 ML 250 ML IVPB PRN (10:10)
[2017-02-20] MEDS: Oseltamivir 6 MG/ML ORAL SUSP PO SCH ×2 (10:46→20:49)
--- NOTE | 2017-02-20 10:47 | PRG ---
DATE OF SERVICE: 02/20/2017 SUBJECTIVE: X-ray shows extensive decreased pulmonary infiltrates. She is encephalopathic on the ve nt. No sedation. OBJECTIVE: VITAL SIGNS: Blood pressure is 110/80, sats are 96%, pulse 61, temperature 100. CHEST: Reveals bilateral rhonchi, crackles. CARDIAC: Sinus tachycardia. ABDOMEN: Massive. NEUROLOGICAL: She is unresponsive. Appears to be encephalopathic. LABORATORY DATA: Creatine is 4.6, the patient is being dialyzed. White count 11,000, H&H is 8 and 2 6, platelet count is 193. Cultures done so far are negative. She has positive influenza antigen. S he put on for Tamiflu for 5 days. IMPRESSION: 1. Morbid obesity. 2. Respiratory failure. 3. Renal failure. 4. Influenza A. PLAN: Trach and PEG has been ordered. She will eventually be transferred to an LTAC. At this stage, she is not weanable. She has an underlying bipolar disorder. We will follow ready for transfer LTAC in the next several days. One-half hour critical care time.
--- NOTE | 2017-02-20 11:53 | PDOC.PN ---
- Subjective Encounter Start Date: 02/20/17 Encounter Start Time: 11:51 Subjective: no appropriate responce, eyes follow - Objective Resuscitation Status: Resuscitation Status FULL:Full Resuscitation MAR Reviewed: Yes Vital Signs & Weight: Vital Signs (12 hours) Temp Pulse Resp BP Pulse Ox 02/20/17 11:15 84 95/50 L 02/20/17 10:00 30 H 02/20/17 08:00 99.8 F H 84 31 H 96 02/20/17 07:15 87 94/48 L 02/20/17 06:00 27 H 02/20/17 04:00 101.0 F H 27 H 02/20/17 03:29 82 96/55 L 02/20/17 03:00 101.0 F H 02/20/17 02:00 32 H Weight Admit Weight 306 lb Weight 325 lb 6.436 oz Most Recent Monitor Data Heart Rate from ECG 85 NIBP 109/53 NIBP BP-Mean 71 Respiration from ECG 30 SpO2 98 I&O: 02/19/17 02/20/17 02/21/17 06:59 06:59 06:59 Intake Total 2431 1201 100 Output Total 60 15 0 Balance 2371 1186 100 Result Diagrams: 02/20/17 04:22 02/20/17 04:22 Additional Labs: Accuchecks 02/19/17 02/19/17 21:16 16:56 POC Glucose 143 H 136 H Phys Exam - Physical Examination Constitutional: NAD Neck: no JVD decreased BS, scattered rales Cardiovascular: RRR, no significant murmur Gastrointestinal: soft, non-tender, positive bowel sounds Musculoskeletal: pulses present, edema present Dx/Plan (1) Acute on chronic renal failure Code(s): N17.9 - ACUTE KIDNEY FAILURE, UNSPECIFIED; N18.9 - CHRONIC KIDNEY DISEASE, UNSPECIFIED Status: Acute Qualifiers: Chronic kidney disease stage: stage 5, not on chronic dialysis (2) Acute respiratory failure with hypoxia and hypercapnia Code(s): J96.01 - ACUTE RESPIRATORY FAILURE WITH HYPOXIA; J96.02 - ACUTE RESPIRATORY FAILURE WITH HYPERCAPNIA Status: Acute (3) Influenza A Code(s): J10.1 - FLU DUE TO OTH IDENT INFLUENZA VIRUS W OTH RESP MANIFEST Status: Acute (4) Pneumonia Code(s): J18.9 - PNEUMONIA, UNSPECIFIED ORGANISM Status: Acute Qualifiers: Pneumonia type: due to unspecified organism Laterality: bilateral Lung location: unspecified part of lung Qualified Code(s): J18.9 - Pneumonia, unspecified organism (5) Edema Code(s): R60.9 - EDEMA, UNSPECIFIED Status: Acute (6) Bipolar 1 disorder Code(s): F31.9 - BIPOLAR DISORDER, UNSPECIFIED Status: Chronic (7) DM (diabetes mellitus), type 2, uncontrolled Code(s): E11.65 - TYPE 2 DIABETES MELLITUS WITH HYPERGLYCEMIA Status: Chronic Qualifiers: Diabetes mellitus complication status: with kidney complications Chronic kidney disease stage: stage 5, not on chronic dialysis (8) HTN (hypertension) Code(s): I10 - ESSENTIAL (PRIMARY) HYPERTENSION Status: Chronic Qualifiers: Hypertension type: essential hypertension Qualified Code(s): I10 - Essential (primary) hypertension - Plan cont current plan of care, continue antibiotics, respiratory therapy cont HD per renal -: on vent, not weanable -: planned Tracheostomt, PEG * .
--- NOTE | 2017-02-20 12:11 | PRG ---
DATE OF SERVICE: 02/20/2017 NEPHROLOGY PROGRESS NOTE SUBJECTIVE: The patient was seen and examined in ICU and remains intubated, noted to be a responsive family. Her brother was at the bedside. OBJECTIVE: GENERAL: This is a morbidly obese -[place] female who is in ICU and intubated. VITAL SIGNS: Temperature 101, pulse 84, respiratory 30, blood pressure 96/48. HEENT: Intubated. CARDIOVASCULAR: S1, S2 heard. RESPIRATORY: Coarse breath sounds. GASTROINTESTINAL: Abdomen is obese. MUSCULOSKELETAL: 1+ edema. DERMATOLOGIC: No skin rash. NEUROLOGIC: Awake, but not very responding. LABORATORY DATA: Potassium 4.5, BUN 41, creatinine is 4.6. ASSESSMENT AND PLAN: 1. Acute kidney injury on chronic kidney disease stage 3. Renal function worsened, needing dialysis over the weekend, tolerating dialysis well. This morning, her surgery was canceled because of fluid overload and plan is to remove fluid. Patient will be having ultrafiltration only for 2 liters off. She is hypotensive on Levophed and we will use albumin p.r.n. for pressure support. 2. Hypernatremia, better. 3. Hyperchloremia. 4. Anemia. 5. Acute hypoxic respiratory failure. 6. Fluid overload. Remove fluid with dialysis. 7. Hypotension. 8. Hypokalemia, replaced. 9. Leukocytosis with fever, rule out any infection. 10. Continue supportive care. Plan is to continue on dialysis as tolerated. Plan today is to remov e fluid as tolerated. Continue Levophed support and use albumin p.r.n.
[2017-02-20 19:52] LABS: Actual Bicarbonate (HCO3a) 25.9 mEq/L (22-26); Base Excess (BEa) 0.7 mEq/L (0 (+/-) 2.5); CO2 Tension 43.9 mmHg (35.0-45.0); Calcium, Ionized 1.1 mmol/L (1.12-1.30); Hematocrit-ABG 29.6 % (36.0-47.0); Hemoglobin (Hb) 8.1 g/dL (12.0-16.0); O2 Tension (PaO2) 54.6 mmHg (80.0-100.0); pH, Arterial 7.39 (7.35-7.45)
[2017-02-20 19:53] LABS: ALV-art Gradient 353.325 (0-20); Puncture Site R RADIAL
[2017-02-20] MEDS ORDERED: DISCONTINUE PREVIOUS NARCOTIC PAIN MEDICATIONS AND BENZODIAZEPINES FS SCH (20:10)
[2017-02-20] MEDS ORDERED: fentaNYL Citrate/PF 2,000 MCG in Sodium Chloride 0.9% 60 ML IV SCH (20:10)
[2017-02-20] MEDS: Propofol 1,000 MG/100 ML VIAL IV PRN (20:28)
[2017-02-20] MEDS: Lorazepam 2 MG/ML VIAL SLOW IVP PRN (20:41)
[2017-02-20] MEDS: Insulin Detemir 100 UNITS/ML 20 UNITS in Pre-Filled Syringe 1 EACH SC SCH (20:50)
[2017-02-21 05:10] LABS: Anion Gap 22 mmol/L (10-20); BUN (Urea Nitrogen) 55 mg/dL (9.8-20.1); Calc. Creatinine Clearance 21 mL/min (70-130); Calcium 9.7 mg/dL (7.8-10.44); Carbon Dioxide 23 mmol/L (23-31); Chloride 96 mmol/L (98-107); Estimated GFR-MDRD 8; Glucose 109 mg/dL (80-115); Magnesium 2.6 mg/dL (1.6-2.6); Phosphorus 8.2 mg/dL (2.3-4.7); Potassium 4.9 mmol/L (3.5-5.1); Sodium 136 mmol/L (136-145)
[2017-02-21 05:32] LABS: Band 7 % (5-11); Eosinophils 1 % (0-10); Hemoglobin 7.6 g/dL (12.0-16.0); Lymphocytes 14 % (21-51); MDiff Complete? YES; Mean Corpuscular HGB CONC 30.6 g/dL (32.0-36.0); Mean Corpuscular Hemoglobin 25.6 pg (27.0-31.0); Mean Corpuscular Volume 83.7 fl (81.0-99.0); Mean Platelet Volume 9.4 fL (7.4-10.4); Monocytes 10 % (0-10); Neutrophil 68 % (42-75); Platelet Count 222 thou/uL (130-400); RBC Distribution Width 17.2 % (11.5-14.5); Red Blood Cell (RBC) Count 2.96 mill/uL (4.20-5.40); White Blood Cell (WBC) Count 12.3 thou/uL (4.8-10.8)
--- NOTE | 2017-02-21 07:52 | RAD ---
CHEST 1 VIEW: Date: 02/21/17 HISTORY: Dyspnea. Follow-up. COMPARISON: 02/20/17. FINDINGS: Cardiac silhouette is magnified and enlarged. The patient is rotated leftward. Pulmonary vasculature remains engorged with widespread infiltrate. Nasogastric tube is seen to the level of the diaphragm, although the distal end of the tube is not well visualized over the stomach. Tip of a right subclavia n central venous catheter projects over the cavoatrial junction. There is calcification in the aorta. IMPRESSION: 1. Widespread air space disease is similar in appearance to 02/20/17 and is favored to represent pul monary edema. 2. Distal end of the nasogastric tube is not well visualized on this exam. Abdomen radiograph could be performed if better localization is needed. 3. Atherosclerosis. POS: [facility]
[2017-02-21] MEDS ORDERED: Cefepime 0.5 GM in Admixture Fee 1 EACH IVPB SCH (09:00)
[2017-02-21] MEDS ORDERED: Cefepime 1 GM in Sodium Chloride 0.9% 100 ML IVPB SCH (09:00)
--- NOTE | 2017-02-21 09:39 | PDOC.PN ---
- Subjective Encounter Start Date: 02/21/17 Encounter Start Time: 09:37 Subjective: no distress - Objective Resuscitation Status: Resuscitation Status FULL:Full Resuscitation MAR Reviewed: Yes Vital Signs & Weight: Vital Signs (12 hours) Temp Pulse Resp BP Pulse Ox 02/21/17 08:00 98.5 F 75 31 H 96 02/21/17 07:06 78 90/40 L 02/21/17 06:00 34 H 02/21/17 04:00 98.2 F 34 H 02/21/17 03:14 81 02/21/17 02:00 27 H 02/21/17 00:00 98.7 F 31 H 96 02/20/17 23:03 80 101/51 L 02/20/17 22:00 36 H Weight Admit Weight 306 lb Weight 318 lb 5.56 oz Most Recent Monitor Data Heart Rate from ECG 78 NIBP 98/38 NIBP BP-Mean 56 Respiration from ECG 30 SpO2 97 I&O: 02/20/17 02/21/17 02/22/17 06:59 06:59 06:59 Intake Total 1201 789 Output Total 15 3 0 Balance 1186 786 0 Result Diagrams: 02/21/17 04:00 02/21/17 04:00 Additional Labs: Accuchecks 02/20/17 02/20/17 02/20/17 21:56 16:24 12:01 POC Glucose 127 H 155 H 143 H Radiology Reviewed by me: Yes (cxr- ET tube, diffuse infiltrates) Phys Exam - Physical Examination Constitutional: NAD Neck: no JVD coarse BS, rhonchi Cardiovascular: RRR, no significant murmur Gastrointestinal: soft, positive bowel sounds Musculoskeletal: pulses present, edema present Dx/Plan (1) Acute on chronic renal failure Code(s): N17.9 - ACUTE KIDNEY FAILURE, UNSPECIFIED; N18.9 - CHRONIC KIDNEY DISEASE, UNSPECIFIED Status: Acute Qualifiers: Chronic kidney disease stage: stage 5, not on chronic dialysis (2) Acute respiratory failure with hypoxia and hypercapnia Code(s): J96.01 - ACUTE RESPIRATORY FAILURE WITH HYPOXIA; J96.02 - ACUTE RESPIRATORY FAILURE WITH HYPERCAPNIA Status: Acute (3) Influenza A Code(s): J10.1 - FLU DUE TO OTH IDENT INFLUENZA VIRUS W OTH RESP MANIFEST Status: Acute (4) Pneumonia Code(s): J18.9 - PNEUMONIA, UNSPECIFIED ORGANISM Status: Acute Qualifiers: Pneumonia type: due to unspecified organism Laterality: bilateral Lung location: unspecified part of lung Qualified Code(s): J18.9 - Pneumonia, unspecified organism (5) Edema Code(s): R60.9 - EDEMA, UNSPECIFIED Status: Acute (6) Bipolar 1 disorder Code(s): F31.9 - BIPOLAR DISORDER, UNSPECIFIED Status: Chronic (7) DM (diabetes mellitus), type 2, uncontrolled Code(s): E11.65 - TYPE 2 DIABETES MELLITUS WITH HYPERGLYCEMIA Status: Chronic Qualifiers: Diabetes mellitus complication status: with kidney complications Chronic kidney disease stage: stage 5, not on chronic dialysis (8) HTN (hypertension) Code(s): I10 - ESSENTIAL (PRIMARY) HYPERTENSION Status: Chronic Qualifiers: Hypertension type: essential hypertension Qualified Code(s): I10 - Essential (primary) hypertension - Plan cont current plan of care, continue antibiotics, respiratory therapy vent dependent. HD this am- then trach/PEG * .
[2017-02-21] MEDS: Cefepime 0.5 GM, Admixture Fee 1 EACH in Sterile Water 10 ML SLOW IVP SCH ×2 (09:43→21:17)
[2017-02-21] MEDS: Amlodipine 5 MG TAB PO SCH (09:44)
[2017-02-21] MEDS: Carvedilol 6.25 MG TAB PO SCH ×2 (09:44→18:44)
[2017-02-21] MEDS: Famotidine 20 MG TAB PER TUBE SCH (09:45)
[2017-02-21 10:19] LABS: Actual Bicarbonate (HCO3a) 23.8 mEq/L (22-26); Base Excess (BEa) -0.9 mEq/L (0 (+/-) 2.5); CO2 Tension 39.1 mmHg (35.0-45.0); Calcium, Ionized 1.1 mmol/L (1.12-1.30); Hematocrit-ABG 27.6 % (36.0-47.0); Hemoglobin (Hb) 7.4 g/dL (12.0-16.0); O2 Tension (PaO2) 63.7 mmHg (80.0-100.0)
--- NOTE | 2017-02-21 10:23 | PRG ---
DATE OF SERVICE: 02/21/2017 She was agitated last night. She had to be resedated. PHYSICAL EXAMINATION: VITAL SIGNS: Pulse 74, sats 98%, respirations 27, blood pressure 99/56. Chest x-ray shows bilateral infiltrates, somewhat less pronounced than yesterday, but improved. NEURO: Neurologically, she is sedated. CHEST: Chest reveals decreased breath sounds, no wheezing. CARDIAC: Normal S1, S2. No gallops. ABDOMEN: Massive. LABORATORY: White count 12,000, H&H 7 and 24, platelet count 222, creatinine 6.9. IMPRESSION: 1. Respiratory failure. 2. Congestive heart failure. 3. Pneumonia. 4. Chronic renal failure. 5. Morbid obesity. 6. Encephalopathy. PLAN: Vent is being adjusted. Continue steroids, Tamiflu, supportive care. Empiric antibiotics, trach and PEG, eventually placement. One-half hour critical care time.
[2017-02-21 10:40] LABS: Puncture Site LRA
[2017-02-21 10:41] LABS: ALV-art Gradient 280.125 (0-20)
--- NOTE | 2017-02-21 13:29 | PRG ---
DATE OF SERVICE: 02/21/2017 NEPHROLOGY PROGRESS NOTE SUBJECTIVE: The patient was seen and examined in ICU. She remains intubated. PHYSICAL EXAMINATION: GENERAL: Obese female who is in ICU and intubated. VITAL SIGNS: Temperature 98.5, pulse 75, respiratory rate 30, blood pressure 98/38. HEENT: Intubated. CARDIOVASCULAR: S1, S2 heard. Rate and rhythm regular. RESPIRATORY: Clear anteriorly. GASTROINTESTINAL: Abdomen was obese and soft. MUSCULOSKELETAL: 1+ edema. DERMATOLOGIC: No skin rash. NEUROLOGIC: Intubated and sedated. LABORATORY DATA: Potassium is 4.9, BUN 55, creatinine 6.1. ASSESSMENT AND PLAN: 1. Acute kidney injury on chronic kidney disease stage 3, dialysis dependent. Plan is to have dialy sis. 2. Hypertension, use albumin and ultrafiltration as tolerated. 3. Acute hypoxic respiratory failure with fluid overload and ventilator dependent, we will have dial ysis. 4. Fluid overload as above. 5. Hyponatremia, better. 6. Anemia. 7. Hypokalemia, better. 8. Hypertension. 9. Cardiorenal syndrome. 10. Plan is to continue on dialysis with ultrafiltration as tolerated. We will follow. Limit fluid intake.
[2017-02-21] MEDS ORDERED: Midazolam HCl 5 mg/5 ml Vial ONE (15:14)
[2017-02-21] MEDS ORDERED: Fentanyl 100 MCG/2 ML VIAL ONE (15:14)
[2017-02-21] MEDS ORDERED: Bupivacaine/Epinephrine 0.25% 30 ML VIAL ONE (15:19)
[2017-02-21] MEDS ORDERED: Sodium Chloride 0.9% 10 ML ONE ×2 (15:19→15:41)
[2017-02-21] MEDS ORDERED: Heparin 10,000 UNITS/1 ML VIAL ONE (15:39)
--- NOTE | 2017-02-21 18:05 | RAD ---
PORTABLE CHEST ONE VIEW 02/21/17 at 5:55 p.m. HISTORY: Central line placement. FINDINGS/IMPRESSION: Comparison made with earlier exam of 6:59 a.m. from the same date. Endotracheal and nasogastric tubes have been removed. A tracheostomy tube has been placed. There has been placement of a left internal jugular central line with tip in the projection of the SVC. There i s also placement of a right sided IJ dialysis catheter with tip in the position of the SVC. The patie nt is rotated to the left. There is pulmonary vascular congestion. The heart size is enlarged. Patchy alveolar disease is again seen. No definite pneumothoraces or large effusions are identified. There are degenerative changes in the s pine. POS: [facility]
[2017-02-21] MEDS: Oseltamivir 6 MG/ML ORAL SUSP PO SCH ×2 (18:43→23:20)
[2017-02-21] MEDS: Morphine 2 MG/ML SYRINGE SLOW IVP PRN (19:07)
[2017-02-21] MEDS: Lorazepam 2 MG/ML VIAL SLOW IVP PRN (21:07)
[2017-02-21] MEDS: Propofol 1,000 MG/100 ML VIAL IV PRN ×2 (21:07)
[2017-02-21] MEDS: Insulin Detemir 100 UNITS/ML 20 UNITS in Pre-Filled Syringe 1 EACH SC SCH (21:21)
--- NOTE | 2017-02-21 22:53 | OP ---
DATE OF PROCEDURE: 02/21/2017 PREOPERATIVE DIAGNOSES: Morbid obesity; hypoventilation syndrome; respiratory failure, ventilatory d ependent; chronic kidney disease; end-stage renal disease, on dialysis; poor IV access, preserving ri ght arm for permanent dialysis access is necessary (she has a good cephalic vein on preoperative veno us ultrasound for future fistula if indicated). POSTOPERATIVE DIAGNOSES: Morbid obesity; hypoventilation syndrome; respiratory failure, ventilatory dependent; chronic kidney disease; end-stage renal disease, on dialysis; poor IV access, preserving r ight arm for permanent dialysis access is necessary (she has a good cephalic vein on preoperative don ous ultrasound for future fistula if indicated). PROCEDURE: Removal of right subclavian vein central line, placement of right IJ cuffed tunnel hemodi alysis catheter angiodynamics precurved. Left IJ central line fluoroscopy and ultrasound use. A #8 Shiley low pressure cuff tracheostomy tube, percutaneous endoscopic gastrostomy tube. SURGEON: Samuel Morgan M.D. ANESTHESIA: General. PROCEDURE IN DETAIL: The patient taken to the operating room where under general anesthesia, neck an d chest were prepared with ChloraPrep, draped in routine fashion. Right subclavian vein central line had been removed. IV access via right femoral vein temporary dialysis catheter utilized. Once the neck and chest were prepared with ChloraPrep, draped in routine fashion, ultrasound used to cannulate the right and left internal jugular veins and with the trocar catheter, J-wire threaded. Trocar cat heter was removed. Skin was incised on both sides and enlarged with an 11 blade scalpel and stab inc ision made over the right chest and using Seldinger technique, left IJ triple lumen catheter was plac ed securing it with 3-0 nylon suture. Biopatch sterile dressing applied. Each port aspirated blood and flushed with saline solution. On the right side using the tunneling device, precurved angiodynamics cuffed tunnel hemodialysis cath eter tunneled between the two incisions, placing the fabric cuff beneath the skin exit site and julianna ter secured with 2 interrupted sutures of 3-0 nylon. Biopatch applied. Smaller and medium sized dil ators placed over the J-wire into the internal jugular vein and removed. Dilator and pull-away sheat h placed over the J-wire in superior vena cava and dilator and J-wire removed. Catheter placed with pull-away sheath; pull-away sheath removed. Platysma approximated with 4-0 Monocryl, skin with subde rmal 4-0 Monocryl and DermaGlue and sterile dressings applied as each port aspirated blood and flushe d with saline solution and heparinized saline solution 1000 units heparin per mL indicated volume of the port. Fluoroscopy revealed good line placement. Incision was made above the manubrium and anterior neck transversely, carried down through skin and p latysma and the strap muscles reflected laterally and isthmus of thyroid divided with the cautery and trachea identified and dissected free and two strap sutures of 3-0 Prolene placed on either side of the trachea and air knots tied and secured the anterior chest with Mastisol and Op-Site. Anterior wi ndow of the trachea excised over 2.5 cartilaginous rings visualizing the endotracheal tube withdrawn under direct visualization and placed a #8 Shiley low pressure cuff tracheostomy tube under direct vi sualization in the trachea inflating the cuff connected to the ventilator. Good hemostasis was noted . Surgicel placed in the soft tissues and skin approximated on either side with continuous suture of 3-0 Prolene and tracheostomy appliance secured to the skin on either side with interrupted suture of 3-0 Prolene and sterile dressings applied. Endoscope placed per os under direct visualization and air insufflation passed throughout the esophag us and stomach relatively good indentation noted in the left subxiphoid area and area prepared with C hloraPrep. Stab incision was made and trocar catheter introduced percutaneously into the stomach, vi sualized endoscopically within the gastric lumen, passing the wire grasping with snare and bringing i t and removing the endoscope and wire out the mouth. The wire out the mouth was then connected to th e feeding tube, which was then pulled back down through the mouth, esophagus and fixated to the abdom inal wall with a fixation device, tailoring the catheter to length and securing it to the feeding dev ice. Dressings applied. The patient tolerated the procedure well.
[2017-02-22] MEDS: Propofol 1,000 MG/100 ML VIAL IV PRN ×2 (00:56→08:44)
[2017-02-22 06:28] LABS: Band 13 % (5-11); Hemoglobin 7.9 g/dL (12.0-16.0); Lymphocytes 11 % (21-51); MDiff Complete? YES; Mean Corpuscular HGB CONC 31.1 g/dL (32.0-36.0); Mean Corpuscular Hemoglobin 25.9 pg (27.0-31.0); Mean Corpuscular Volume 83.5 fl (81.0-99.0); Mean Platelet Volume 9.4 fL (7.4-10.4); Monocytes 12 % (0-10); Neutrophil 64 % (42-75); Platelet Count 280 thou/uL (130-400); RBC Distribution Width 17.5 % (11.5-14.5); Red Blood Cell (RBC) Count 3.05 mill/uL (4.20-5.40)
[2017-02-22 06:33] LABS: Anion Gap 24 mmol/L (10-20); BUN (Urea Nitrogen) 68 mg/dL (9.8-20.1); Calc. Creatinine Clearance 19 mL/min (70-130); Calcium 9.7 mg/dL (7.8-10.44); Carbon Dioxide 23 mmol/L (23-31); Chloride 94 mmol/L (98-107); Estimated GFR-MDRD 8; Glucose 140 mg/dL (80-115); Phosphorus 11.5 mg/dL (2.3-4.7); Potassium 5.5 mmol/L (3.5-5.1); Sodium 135 mmol/L (136-145)
[2017-02-22 06:38] LABS: Actual Bicarbonate (HCO3a) 24.1 mEq/L (22-26); Base Excess (BEa) -1.2 mEq/L (0 (+/-) 2.5); CO2 Tension 43.6 mmHg (35.0-45.0); Calcium, Ionized 1.1 mmol/L (1.12-1.30); Hematocrit-ABG 29.3 % (36.0-47.0); O2 Tension (PaO2) 139.3 mmHg (80.0-100.0); pH, Arterial 7.36 (7.35-7.45)
[2017-02-22 07:45] LABS: Puncture Site RRA
[2017-02-22] MEDS: Amlodipine 5 MG TAB PO SCH (08:34)
[2017-02-22] MEDS: Carvedilol 6.25 MG TAB PO SCH ×2 (08:35→17:33)
[2017-02-22] MEDS: Famotidine 20 MG TAB PER TUBE SCH (08:36)
[2017-02-22] MEDS: Oseltamivir 6 MG/ML ORAL SUSP PO SCH ×2 (08:39→08:42)
[2017-02-22] MEDS ORDERED: Heparin 10,000 UNITS/ 10 ML VIAL ONE (09:16)
[2017-02-22] MEDS: Cefepime 0.5 GM, Admixture Fee 1 EACH in Sterile Water 10 ML SLOW IVP SCH ×2 (10:55→19:57)
--- NOTE | 2017-02-22 11:03 | PDOC.PN ---
- Subjective Encounter Start Date: 02/22/17 Encounter Start Time: 11:01 Subjective: not responsive - Objective Resuscitation Status: Resuscitation Status FULL:Full Resuscitation MAR Reviewed: Yes Vital Signs & Weight: Vital Signs (12 hours) Temp Pulse Resp BP Pulse Ox 02/22/17 10:51 71 106/51 L 02/22/17 10:00 26 H 02/22/17 08:35 112/42 L 02/22/17 08:34 78 102/29 L 02/22/17 08:00 98.6 F 02/22/17 07:53 98.5 F 78 30 H 100 02/22/17 06:25 78 112/42 L 02/22/17 06:00 31 H 02/22/17 04:00 98.5 F 30 H 02/22/17 02:42 81 02/22/17 02:00 33 H 02/22/17 00:43 75 02/22/17 00:00 98.4 F 31 H Weight Admit Weight 306 lb Weight 314 lb 13.121 oz Most Recent Monitor Data Heart Rate from ECG 72 NIBP 106/51 NIBP BP-Mean 70 Respiration from ECG 23 SpO2 100 I&O: 02/21/17 02/22/17 02/23/17 06:59 06:59 06:59 Intake Total 789 681 Output Total 3 0 0 Balance 786 681 0 Result Diagrams: 02/22/17 05:24 02/22/17 05:24 Additional Labs: Accuchecks 02/21/17 02/21/17 02/21/17 21:22 17:24 12:09 POC Glucose 213 H 197 H 129 H Phys Exam - Physical Examination Neck: no JVD Respiratory: clear to auscultation bilateral Cardiovascular: RRR, no significant murmur Gastrointestinal: soft, positive bowel sounds Musculoskeletal: edema present Dx/Plan (1) Acute on chronic renal failure Code(s): N17.9 - ACUTE KIDNEY FAILURE, UNSPECIFIED; N18.9 - CHRONIC KIDNEY DISEASE, UNSPECIFIED Status: Acute Qualifiers: Chronic kidney disease stage: stage 5, not on chronic dialysis (2) Acute respiratory failure with hypoxia and hypercapnia Code(s): J96.01 - ACUTE RESPIRATORY FAILURE WITH HYPOXIA; J96.02 - ACUTE RESPIRATORY FAILURE WITH HYPERCAPNIA Status: Acute (3) Influenza A Code(s): J10.1 - FLU DUE TO OTH IDENT INFLUENZA VIRUS W OTH RESP MANIFEST Status: Acute (4) Pneumonia Code(s): J18.9 - PNEUMONIA, UNSPECIFIED ORGANISM Status: Acute Qualifiers: Pneumonia type: due to unspecified organism Laterality: bilateral Lung location: unspecified part of lung Qualified Code(s): J18.9 - Pneumonia, unspecified organism (5) Edema Code(s): R60.9 - EDEMA, UNSPECIFIED Status: Acute (6) Bipolar 1 disorder Code(s): F31.9 - BIPOLAR DISORDER, UNSPECIFIED Status: Chronic (7) DM (diabetes mellitus), type 2, uncontrolled Code(s): E11.65 - TYPE 2 DIABETES MELLITUS WITH HYPERGLYCEMIA Status: Chronic Qualifiers: Diabetes mellitus complication status: with kidney complications Chronic kidney disease stage: stage 5, not on chronic dialysis (8) HTN (hypertension) Code(s): I10 - ESSENTIAL (PRIMARY) HYPERTENSION Status: Chronic Qualifiers: Hypertension type: essential hypertension Qualified Code(s): I10 - Essential (primary) hypertension - Plan post PEG- nutrition, etc per peg -: post trach- vent dependent -: cont HD -: LTAC referral * .
--- NOTE | 2017-02-22 11:37 | PRG ---
DATE OF SERVICE: 02/22/2017 SUBJECTIVE: Ms. Porras had a tracheostomy and PEG tube placed yesterday. She is pending LTAC joy sfer. She is due for dialysis this afternoon. PHYSICAL EXAMINATION: VITAL SIGNS: Her temperature is 98.6 and she has had no fever since 02/20/2017, pulse 72, blood pres sure 104/46, total intake for 24 hours 681 and output 3000. GENERAL: She is slightly sedated on mechanical ventilation. HEENT: She has poor dentition. Oropharynx dry. NECK: No JVD. LUNGS: Clear to auscultation anteriorly bilaterally. CARDIOVASCULAR: S1, S2 regular, without murmur, rub or gallop. ABDOMEN: Soft, obese, nontender, nondistended. PEG tube in place. EXTREMITIES: Without clubbing, cyanosis. She has generalized edema throughout. LABORATORY DATA AND IMAGING DATA: White blood cell count 14, hematocrit 25.5, platelet count 280, pH 7.36, pCO2 of 43, pO2 of 139 on SIMV rate 20, tidal volume 430, PEEP 12, pressure support 10, FiO2 7 5%. Sodium 135, potassium 5.5, chloride 94, CO2 23, BUN 68, creatinine 6.6, glucose 140, phosphorus 11.5. Chest x-ray from yesterday demonstrated rotational film with cardiomegaly and probable left-si ded infiltrate. Trach in good position. Dialysis catheter in good position. Left IJ central line i n good position. ASSESSMENT: 1. Acute respiratory failure related influenza. 2. Acute on chronic renal failure. 3. Congestive heart failure. 4. Morbid obesity. 5. Encephalopathy. PLAN: 1. Decrease PEEP on vent. Continue steroids. Can go ahead and stop Tamiflu as she has had over 5 d ays of that. 2. Continue cefepime. 3. Discontinue Levophed from APR. Anticipate transfer to LTAC later today.
[2017-02-22 14:03] VITALS: BMI 50.8
[2017-02-22] MEDS: Insulin Regular 300 UNITS/3 ML VIAL SC PRN (17:34)
--- NOTE | 2017-02-22 17:51 | PRG ---
DATE OF SERVICE: 02/22/2017 SUBJECTIVE: Rosmery Porras is doing well after right IJ cuffed tunneled dialysis catheter, left IJ yuri tral line, removal of her right subclavian vein central line, tracheostomy tube placement and PEG tub e placement. Her dialysis catheter is working well. Her feeding tube is working well. OBJECTIVE: LUNGS: Clear. ABDOMEN: Soft, nontender. NECK: Tracheostomy site is clear. ASSESSMENT AND PLAN: End-stage renal disease, anuric. Continue hemodialysis. Her right arm has goo d veins by ultrasound vein mapping for a primary fistula. I have informed the family and indicated t he nurses to avoid PICC lines to avoid upper midline cephalic vein, IV access, and to save her right arm veins for dialysis access. At this point, I will see the patient as needed in this hospitalizati on. Please call if necessary.
[2017-02-22] MEDS: Insulin Detemir 100 UNITS/ML 20 UNITS in Pre-Filled Syringe 1 EACH SC SCH (20:03)
--- NOTE | 2017-02-22 21:27 | PRG ---
DATE OF SERVICE: 02/22/2017 NEPHROLOGY PROGRESS NOTE SUBJECTIVE: The patient was seen and examined in ICU. She remains intubated and not very responsive or verbal. Family at the bedside, still not making urine and blood pressure remains low. OBJECTIVE: GENERAL: Obese female, on trach. VITAL SIGNS: Temperature 98.3, pulse 82, respiratory rate 18, blood pressure 110/56. HEENT: Intubated. CARDIOVASCULAR: S1, S2 heard. RESPIRATORY: Clear anteriorly. ABDOMEN: Obese. MUSCULOSKELETAL: 1+ edema. NEUROLOGIC: He is not responding. LABORATORY DATA: Potassium is 5.5, BUN 68, creatinine 6.6, phosphorus is low at 1.5. ASSESSMENT AND PLAN: 1. Acute kidney injury on chronic kidney disease with dialysis dependence. Plan is to have dialysis today. Patient has been having ultrafiltration over the last few days and is having buildup of toxi ns including hyperkalemia and hyperphosphatemia. Continue renal supplements and renal diet supplemen ts and will have dialysis. 2. Hypertension, currently hypotensive. We will use albumin and has been tricky to have ultrafiltra tion. 3. Acute hypoxic respiratory failure and fluid overload. Plan is to remove fluid as tolerated if bl ood pressure allows. 4. Hyponatremia. Limit fluid intake. . Plan is to continue dialysis as tolerated. The sung ent is having daily dialysis for ultrafiltration if tolerated.
[2017-02-22] MEDS: Lorazepam 2 MG/ML VIAL SLOW IVP PRN (23:22)
[2017-02-22] MEDS: Morphine 2 MG/ML SYRINGE SLOW IVP PRN (23:38)
[2017-02-23] MEDS: Propofol 1,000 MG/100 ML VIAL IV PRN ×2 (03:41→11:13)
[2017-02-23] MEDS: Insulin Regular 300 UNITS/3 ML VIAL SC PRN (04:39)
[2017-02-23 05:50] LABS: Anion Gap 19 mmol/L (10-20); BUN (Urea Nitrogen) 56 mg/dL (9.8-20.1); Calc. Creatinine Clearance 26 mL/min (70-130); Calcium 9.4 mg/dL (7.8-10.44); Carbon Dioxide 28 mmol/L (23-31); Chloride 93 mmol/L (98-107); Estimated GFR-MDRD 11; Glucose 214 mg/dL (80-115); Magnesium 2.5 mg/dL (1.6-2.6); Phosphorus 6.2 mg/dL (2.3-4.7); Potassium 4.2 mmol/L (3.5-5.1); Sodium 136 mmol/L (136-145)
[2017-02-23 06:00] LABS: Band 3 % (5-11); Eosinophils 1 % (0-10); Hemoglobin 8.3 g/dL (12.0-16.0); Lymphocytes 29 % (21-51); MDiff Complete? YES; Mean Corpuscular HGB CONC 31.4 g/dL (32.0-36.0); Mean Corpuscular Hemoglobin 25.9 pg (27.0-31.0); Mean Corpuscular Volume 82.6 fl (81.0-99.0); Mean Platelet Volume 9.4 fL (7.4-10.4); Metamyelocyte 2 % (0-0); Monocytes 4 % (0-10); Neutrophil 61 % (42-75); Nucleated RBC 3 % (0); PLT Morphology Comment Appears Adequate; Platelet Count 274 thou/uL (130-400); RBC Distribution Width 17.5 % (11.5-14.5); Red Blood Cell (RBC) Count 3.21 mill/uL (4.20-5.40); White Blood Cell (WBC) Count 11.8 thou/uL (4.8-10.8)
[2017-02-23] MEDS ORDERED: Ziprasidone 20 MG VIAL IM SCH (09:00)
--- NOTE | 2017-02-23 09:33 | PDOC.PN ---
- Subjective Encounter Start Date: 02/23/17 Encounter Start Time: 09:31 Subjective: unresponsive - Objective Resuscitation Status: Resuscitation Status FULL:Full Resuscitation MAR Reviewed: Yes Vital Signs & Weight: Vital Signs (12 hours) Temp Pulse Resp BP 02/23/17 08:00 99.4 F 02/23/17 06:52 91 102/47 L 02/23/17 06:00 40 H 02/23/17 04:00 99.5 F 29 H 02/23/17 02:44 91 138/71 02/23/17 02:00 41 H 02/23/17 00:00 37 H 02/22/17 22:58 94 115/45 L 02/22/17 22:00 40 H Weight Admit Weight 306 lb Weight 287 lb 7.724 oz Most Recent Monitor Data Heart Rate from ECG 88 NIBP 107/50 NIBP BP-Mean 72 Respiration from ECG 34 SpO2 95 I&O: 02/22/17 02/23/17 02/24/17 06:59 06:59 06:59 Intake Total 681 1383 Output Total 0 20 0 Balance 681 1363 0 Result Diagrams: 02/23/17 04:37 02/23/17 04:37 Additional Labs: Accuchecks 02/23/17 02/22/17 02/22/17 04:37 20:01 17:18 POC Glucose 219 H 245 H 212 H 02/22/17 11:22 POC Glucose 258 H Phys Exam - Physical Examination Neck: no JVD coarse, distant BS Cardiovascular: RRR, no significant murmur Gastrointestinal: soft, positive bowel sounds Musculoskeletal: edema present Dx/Plan (1) Acute on chronic renal failure Code(s): N17.9 - ACUTE KIDNEY FAILURE, UNSPECIFIED; N18.9 - CHRONIC KIDNEY DISEASE, UNSPECIFIED Status: Acute Qualifiers: Chronic kidney disease stage: stage 5, not on chronic dialysis (2) Acute respiratory failure with hypoxia and hypercapnia Code(s): J96.01 - ACUTE RESPIRATORY FAILURE WITH HYPOXIA; J96.02 - ACUTE RESPIRATORY FAILURE WITH HYPERCAPNIA Status: Acute (3) Influenza A Code(s): J10.1 - FLU DUE TO OTH IDENT INFLUENZA VIRUS W OTH RESP MANIFEST Status: Acute (4) Pneumonia Code(s): J18.9 - PNEUMONIA, UNSPECIFIED ORGANISM Status: Acute Qualifiers: Pneumonia type: due to unspecified organism Laterality: bilateral Lung location: unspecified part of lung Qualified Code(s): J18.9 - Pneumonia, unspecified organism (5) Edema Code(s): R60.9 - EDEMA, UNSPECIFIED Status: Acute (6) Bipolar 1 disorder Code(s): F31.9 - BIPOLAR DISORDER, UNSPECIFIED Status: Chronic (7) DM (diabetes mellitus), type 2, uncontrolled Code(s): E11.65 - TYPE 2 DIABETES MELLITUS WITH HYPERGLYCEMIA Status: Chronic Qualifiers: Diabetes mellitus complication status: with kidney complications Chronic kidney disease stage: stage 5, not on chronic dialysis (8) HTN (hypertension) Code(s): I10 - ESSENTIAL (PRIMARY) HYPERTENSION Status: Chronic Qualifiers: Hypertension type: essential hypertension Qualified Code(s): I10 - Essential (primary) hypertension - Plan no improvement -: on regulat HD -: has trach, vent dependent -: nutrition, po meds per PEG * .
[2017-02-23] MEDS: Albumin 25% 25 GM/100 ML BOT IVPB PRN ×2 (09:42→09:46)
[2017-02-23] MEDS ORDERED: Albumin 25% 25 GM/100 ML BOT IVPB PRN (09:44)
--- NOTE | 2017-02-23 09:46 | PRG ---
DATE OF SERVICE: 02/23/2017 SUBJECTIVE: Ms. Porras remains intubated in the ICU. There have been no acute changes in her cond ition overnight, main issue is tachypnea. PHYSICAL EXAMINATION: VITAL SIGNS: Temperature is 99.5, pulse 91, blood pressure 99/48. A 24-hour intake 1383, output 300 0 through dialysis. Weight down to 287. NEUROLOGICAL: She will withdraw to pain, does not follow any commands for me. She does have spontan eous respirations. HEENT: Otherwise, unremarkable. NECK: No JVD. LUNGS: Clear but distant. CARDIOVASCULAR: S1, S2 regular. ABDOMEN: Obese, soft, nontender. EXTREMITIES: Generalized edema throughout. LABORATORY DATA: Sodium 136, potassium 4.2, chloride 93, CO2 28, BUN 56, creatinine 4.8, glucose 214 . White blood cell count 11.8, hematocrit 26.5, platelet count 274. X-RAY FINDINGS: Chest x-ray was not done today. ASSESSMENT: 1. Acute respiratory failure requiring mechanical ventilation. 2. Status post influenza related pneumonia. 3. Acute on chronic renal failure. 4. Congestive heart failure. 5. Morbid obesity. 6. Encephalopathy. PLAN: 1. She will be transferred to the LTAC today at [facility] in [place]. I spoke with Jm florentino, nurse practitioner who has accepting the patient on behalf of one of the physicians there. 2. Th e patient probably will require dialysis every other day. 3. Continue cefepime for the time being, but I anticipate that can be stopped in the next couple of days. She is growing out serratia from a tracheal aspirate that is likely colonization and not infec tion. I would assume her long-term prognosis is quite poor due to her anoxic encephalopathy.
[2017-02-23] MEDS ORDERED: Sterile Water 10 ML ONE (09:49)
[2017-02-23 10:55] VITALS: BP 100/52
[2017-02-23] MEDS ORDERED: Cefepime 0.5 GM, Admixture Fee 1 EACH in Sterile Water 10 ML SLOW IVP SCH (13:00)
[2017-02-23 13:04] VITALS: TEMP 98.1
[2017-02-23] MEDS: Carvedilol 6.25 MG TAB PO SCH (13:17)
[2017-02-23] MEDS: Famotidine 20 MG TAB PER TUBE SCH (13:19)
[2017-02-23] MEDS: Cefepime 0.5 GM, Admixture Fee 1 EACH in Sterile Water 10 ML SLOW IVP SCH ×2 (13:19→13:33)
[2017-02-23] MEDS: Amlodipine 5 MG TAB PO SCH (13:19)
[2017-02-23] MEDS: Lorazepam 2 MG/ML VIAL SLOW IVP PRN (14:12)
--- NOTE | 2017-02-23 16:49 | DIS ---
DATE OF ADMISSION: 02/10/2017 DATE OF DISCHARGE: 02/23/2017 DISCHARGE DISPOSITION: Transferred to [facility] in [place] on 02/23/2017. FINAL DIAGNOSES: Influenza, pneumonia complicating influenza, acute respiratory failure with hypoxia , acute renal failure, hypertension, diabetes mellitus type 2, bipolar 1 disorder. DISCHARGE MEDICATIONS: Tylenol 650 mg [place] q.4 hours p.r.n., amlodipine 5 mg per PEG daily, Coreg 3.12 5 mg per PEG twice a day, cefepime 0.5 grams q.12 hours, Pepcid 20 mg per tube daily, fentanyl IV as needed for sedation, insulin detemir 20 units subcu at bedtime, aggressive sliding scale with Humalog , methylprednisolone 40 mg IV daily, Zofran 4 mg IV q.6 hours p.r.n., Geodon 20 mg IM q.12 hours. ALLERGIES: PENICILLIN. CODE STATUS: FULL. PENDING AT THE TIME OF DISCHARGE: Nothing. HOSPITAL COURSE: [facility] apparently having been found unresponsive and down in her home. She had not been in contact with anyone for 24-48 hours. EMS found her with a temperature of 100.9, minimally re sponsive. She was brought to the emergency room. She was intubated, noted to be severe hypotensive, diagnosis of septic shock, acute hypoxemic respiratory failure, toxic metabolic encephalopathy, acut e renal failure, etc. were made on admission. Initial chest x-ray revealed a very significant upper and lower left-sided infiltrate. Initial laboratory: White count was 98 with neutrophilia, hemoglob in 12.1, platelet count 85,000. Initial blood gas: PH 7.24, CO2 of 46.9, pO2 of 71. Comp metabolic profile: Sodium 146, potassium 4.5, chloride 114, carbon dioxide 18, BUN 42, creatinine 3.92, blood sugar 150, lactic acid 2.5, AST 794, ALT 360. Toxicology was positive for THC and opioids. The pat ient was seen in consultation on the day of admission by Dr. Raj Pulliam Pulmonology, by Dr. Idalia Santillan Nephrology. The patient had a bronchoscopy by Dr. Raj Pulliam on 02/10/2017. The patien t was seen on 02/17/[address] Samuel Morgan. Hemodialysis catheter was placed in the right groin for dialysis. The patient has remained unresponsive during her hospital stay. She received IV antib iotics, chest x-rays, lab, etc., monitored during her hospital stay. Blood cultures were negative. Culture of one of her lines was negative. She was positive for influenza A and a respiratory culture grew a few Serratia marcescens and other normal manny. During her stay, her CBC was monitored. It is pertinent she never had leukocytosis. Her final hemoglobin was in the 10-10.5 range, platelet cou nt remained low in the 75-85 range. Chemistries were monitored. Her BUN and creatinine remained hig h. She was treated with hemodialysis per Nephrology. Her final chest x-ray was done on 02/21/2017 w [facility] demonstrated a tracheostomy tube, continuing infiltrates. On 02/21/2017, Dr. Samuel Morgan too k her to the operating room and put in a percutaneous enteral gastrostomy, a tracheostomy tube, and a tunneled hemodialysis catheter. At that point, Dr. Pulliam made arrangements for her to be transfer red to [facility] in [place]. The accepting provider was Margo Israel, nurse practitioner. T he patient is currently vent dependent with no evidence of being weanable at this time, end-stage mary al disease prompted by acute renal failure, on routine hemodialysis, tube feedings for nutrition, med icines as listed earlier. Prognosis is guarded. Followup in the near future will be by [facility] and given the almost optimistic case that the patient recovers or is transferred back to here fo r continuing jail care at some point. Her doctor is Dr. Margo Coates.
--- NOTE | 2017-02-23 19:36 | PRG ---
DATE OF SERVICE: 02/23/2017 SUBJECTIVE: The patient was seen and examined in ICU and remains intubated. No family at the bedsid e. The patient is not very responsive today. OBJECTIVE: GENERAL: This is an obese female seen in ICU, intubated through the trach. VITAL SIGNS: Temperature 98.1, pulse 87, respiratory 14, blood pressure 97/50. HEENT: Trach present. CARDIOVASCULAR: S1, S2 heard. RESPIRATORY: Coarse. ABDOMEN: Obese. NEUROLOGICAL: Not responsive. LABORATORY DATA: Potassium is 4.2, BUN is 56, creatinine is 4.7. ASSESSMENT AND PLAN: 1. Acute kidney injury on chronic kidney disease, dialysis dependent. The patient was having daily dialysis with ultrafiltration as tolerated. The patient is hypotensive with high risk for dialysis. We will continue on dialysis as tolerated. We will use albumin p.r.n. 2. Hypotension . 3. Acute hypoxic respiratory failure. 4. Fluid overload. Remove fluid with dialysis. 5. Hyponatremia. Limit fluid intake. 6. Anemia. 7. Morbid obesity 8. Edema. Plan is to continue on dialysis as tolerated.
[2017-02-24] MEDS ORDERED: Heparin 10,000 UNITS/ 10 ML VIAL ONE (10:10)
== END 2017-02-23 15:40 | DRG 4 ==
LOC: ERS 22:24 → CCU 02-10 01:00
PROVIDERS: ADMIT Family Medicine; ATTEND Family Medicine
PROC: 5A1955Z Respiratory Ventilation, Greater than 96 Consecutive Hours (ICD-10-PCS; 2017-02-10)
PROC: 0B9B8ZZ Drainage of Left Lower Lobe Bronchus, Via Natural or Artificial Opening Endoscopic (ICD-10-PCS; 2017-02-10)
PROC: 0B988ZZ Drainage of Left Upper Lobe Bronchus, Via Natural or Artificial Opening Endoscopic (ICD-10-PCS; 2017-02-10)
PROC: 0B968ZZ Drainage of Right Lower Lobe Bronchus, Via Natural or Artificial Opening Endoscopic (ICD-10-PCS; 2017-02-10)
PROC: 0BH17EZ Insertion of Endotracheal Airway into Trachea, Via Natural or Artificial Opening (ICD-10-PCS; 2017-02-10)
PROC: 02HV33Z Insertion of Infusion Device into Superior Vena Cava, Percutaneous Approach (ICD-10-PCS; 2017-02-10)
PROC: 5A1D70Z Performance of Urinary Filtration, Intermittent, Less than 6 Hours Per Day (ICD-10-PCS; 2017-02-17)
PROC: 0B110F4 Bypass Trachea to Cutaneous with Tracheostomy Device, Open Approach (ICD-10-PCS; principal; 2017-02-21)
PROC: 0DH63UZ Insertion of Feeding Device into Stomach, Percutaneous Approach (ICD-10-PCS; 2017-02-21)
PROC: 02PYX3Z Removal of Infusion Device from Great Vessel, External Approach (ICD-10-PCS; 2017-02-21)
PROC: 0JH63XZ Insertion of Tunneled Vascular Access Device into Chest Subcutaneous Tissue and Fascia, Percutaneous Approach (ICD-10-PCS; 2017-02-21)
PROC: 02HV33Z Insertion of Infusion Device into Superior Vena Cava, Percutaneous Approach (ICD-10-PCS; 2017-02-21)
DX: A41.9 Sepsis, unspecified organism (principal); N17.0 Acute kidney failure with tubular necrosis; I50.33 Acute on chronic diastolic (congestive) heart failure; J11.00 Influenza due to unidentified influenza virus with unspecified type of pneumonia; R65.21 Severe sepsis with septic shock; G93.41 Metabolic encephalopathy; I13.0 Hypertensive heart and chronic kidney disease with heart failure and stage 1 through stage 4 chronic kidney disease, or unspecified chronic kidney disease; E44.0 Moderate protein-calorie malnutrition; J96.01 Acute respiratory failure with hypoxia; J96.02 Acute respiratory failure with hypercapnia; E87.0 Hyperosmolality and hypernatremia; J98.11 Atelectasis; E87.1 Hypo-osmolality and hyponatremia; E87.2 Acidosis; Z68.43 Body mass index [BMI] 50.0-59.9, adult; E66.2 Morbid (severe) obesity with alveolar hypoventilation; N18.3 Chronic kidney disease, stage 3 (moderate); F12.90 Cannabis use, unspecified, uncomplicated; Z88.0 Allergy status to penicillin; K21.9 Gastro-esophageal reflux disease without esophagitis; F31.9 Bipolar disorder, unspecified; Z87.891 Personal history of nicotine dependence; E11.22 Type 2 diabetes mellitus with diabetic chronic kidney disease; D64.9 Anemia, unspecified; E87.6 Hypokalemia; E11.65 Type 2 diabetes mellitus with hyperglycemia; F41.9 Anxiety disorder, unspecified; E88.09 Other disorders of plasma-protein metabolism, not elsewhere classified; Z74.01 Bed confinement status; R62.50 Unspecified lack of expected normal physiological development in childhood; Z78.1 Physical restraint status
CPT/HCPCS: 31500; 36416; 36556; 51702; 70450; 71010; 71045; 80048; 80053; 80076; 80202; 80306; 81001; 81003; 81015; 82533; 82805; 83605; 83735; 83880; 84100; 84443; 85007; 85025; 85027; 86704; 86706; 86803; 87040; 87070; 87077; 87081; 87186; 87205; 87340; 90935; 90945; 93005; 93970; 94002; 94003; 96361; 96365; 96366; 96367; 96375; 99292; A4216; C1751; C1752; C1769; G0257; G0365; J0131; J0360; J0692; J1642; J1644; J1720; J1815; J1940; J2060; J2250; J2270; J2704; J2920; J3010; J3370; J3411; J3480; J3486; J7050; J7070; P9045; S0028